=== PATIENT | male | born 1955 | race Caucasian/White ===

== ENCOUNTER 2019-12-23 09:40 | Outpatient (CLI) | payer MEDICARE, SELFPAY ==
[2019-12-23 09:50] LABS: Basophils Absolute Auto 0.04 K/mm3 (0.00-0.10); Basophils Percent Auto 0.5 % (0.0-1.0); Eosinophils Absolute Auto 0.13 K/mm3 (0.02-0.50); Eosinophils Percent Auto 1.7 % (1.0-6.0); Hematocrit 40.4 % (40.0-54.0); Hemoglobin 13.9 g/dL (14.0-18.0); Immature Granulocyte Absolute 0.02 K/mm3 (0.00-0.00); Immature Granulocyte Percent A 0.3 % (0.0-0.0); Lymphocytes Absolute Auto 1.77 K/mm3 (1.10-4.50); Lymphocytes Percent Auto 22.7 % (18.0-42.0); Mean Corpuscular HGB Conc 34.4 g/dL (32.0-36.0); Mean Corpuscular Hemoglobin 29.8 pg (27.0-31.0); Mean Corpuscular Volume 86.5 fL (78.0-102.0); Mean Platelet Volume 9.9 fl (8.7-11.0); Monocytes Percent Auto 6.4 % (2.0-11.0); Neutrophils Absolute Auto 5.3 K/mm3 (1.7-7.2); Neutrophils Percent Auto 68.4 % (50.0-70.0); Platelet Count Result 196 K/mm3 (150-420); Red Blood Count 4.67 M/mm3 (4.70-6.10); Red Cell Distribution Width 13.1 % (11.6-14.4); White Blood Count 7.8 K/mm3 (4.8-10.8)
[2019-12-23 10:02] LABS: Hemoglobin A1C 6.1 % (<5.7)
[2019-12-23 11:48] LABS: Anion Gap 14.2 mmol/L (7-16); Blood Urea Nitrogen 13 mg/dL (7-18); Calcium 8.9 mg/dL (8.5-10.1); Carbon Dioxide 30 mmol/L (21-32); Chloride 105 mmol/L (98-108); Estimated Glomerular Filt Rate > 60; Glucose 144 mg/dL (70-99); Osmolality Calculated 305 mOsm/kg (285-295); Potassium 3.2 mmol/L (3.5-5.1); Sodium 146 mmol/L (136-145)
== END 2019-12-23 09:41 | disposition home or self-care (01) ==
LOC: CHSLAB 09:42
PROVIDERS: PCP Family Medicine; Visit Provider Family Medicine
DX: E78.2 Mixed hyperlipidemia (principal); E11.9 Type 2 diabetes mellitus without complications; I10 Essential (primary) hypertension; Z12.5 Encounter for screening for malignant neoplasm of prostate
CPT/HCPCS: 36415; 80048; 83036; 84153; 85025; G0103

== ENCOUNTER 2020-03-26 07:59 | Outpatient (CLI) | payer MEDICARE, SELFPAY ==
[2020-03-26 08:48] LABS: Anion Gap 10.8 mmol/L (7-16); Blood Urea Nitrogen 19 mg/dL (7-18); Calcium 8.7 mg/dL (8.5-10.1); Carbon Dioxide 31 mmol/L (21-32); Chloride 106 mmol/L (98-108); Estimated Glomerular Filt Rate 60; Glucose 154 mg/dL (70-99); Osmolality Calculated 303 mOsm/kg (285-295); Potassium 3.8 mmol/L (3.5-5.1); Sodium 144 mmol/L (136-145)
== END 2020-03-26 08:00 | disposition home or self-care (01) ==
LOC: CHSLAB 08:00
PROVIDERS: PCP Family Medicine; Visit Provider Family Medicine
DX: E11.9 Type 2 diabetes mellitus without complications (principal); I10 Essential (primary) hypertension
CPT/HCPCS: 36415; 80048; 83036

== ENCOUNTER 2020-06-07 11:38 | Outpatient (CLI) | payer MEDICARE, SELFPAY ==
[2020-06-07 13:22] LABS: Anion Gap 11 mmol/L (8-16); Blood Urea Nitrogen 22 mg/dL (7-18); Carbon Dioxide 28 mmol/L (21-32); Chloride 107 mmol/L (98-108); Estimated Glomerular Filt Rate 45; Glucose 85 mg/dL (70-99); Osmolality Calculated 304 mOsm/kg (285-295); Potassium 3.6 mmol/L (3.5-5.1); Sodium 146 mmol/L (136-145)
== END 2020-06-07 11:39 | disposition home or self-care (01) ==
PROVIDERS: PCP Family Medicine
DX: R53.83 Other fatigue (principal); I10 Essential (primary) hypertension; G47.33 Obstructive sleep apnea (adult) (pediatric)
CPT/HCPCS: 36415; 80048

== ENCOUNTER 2020-07-09 08:54 | Outpatient (CLI) | payer MEDICARE, SELFPAY ==
[2020-07-09 09:06] LABS: Basophils Absolute Auto 0.03 K/mm3 (0.00-0.10); Basophils Percent Auto 0.4 % (0.0-1.0); Eosinophils Absolute Auto 0.16 K/mm3 (0.02-0.50); Eosinophils Percent Auto 2.2 % (1.0-6.0); Hematocrit 40.8 % (40.0-54.0); Hemoglobin 13.2 g/dL (14.0-18.0); Immature Granulocyte Absolute 0.02 K/mm3 (0.00-0.00); Immature Granulocyte Percent A 0.3 % (0.0-0.0); Lymphocytes Absolute Auto 1.75 K/mm3 (1.10-4.50); Lymphocytes Percent Auto 24.1 % (18.0-42.0); Mean Corpuscular HGB Conc 32.4 g/dL (32.0-36.0); Mean Corpuscular Hemoglobin 28.9 pg (27.0-31.0); Mean Corpuscular Volume 89.5 fL (78.0-102.0); Monocytes Absolute Auto 0.41 K/mm3 (0.10-0.90); Monocytes Percent Auto 5.7 % (2.0-11.0); Neutrophils Absolute Auto 4.9 K/mm3 (1.7-7.2); Neutrophils Percent Auto 67.3 % (50.0-70.0); Platelet Count Result 191 K/mm3 (150-420); Red Blood Count 4.56 M/mm3 (4.70-6.10); Red Cell Distribution Width 12.7 % (11.6-14.4); White Blood Count 7.3 K/mm3 (4.8-10.8)
[2020-07-09 09:18] LABS: Hemoglobin A1C 5.9 % (<5.7)
[2020-07-09 09:37] LABS: Alanine Aminotransferase 34 U/L (16-63); Albumin Level 3.7 g/dL (3.4-5.0); Alkaline Phosphatase 69 U/L (46-116); Anion Gap 9 mmol/L (8-16); Aspartate Amino Transferase 18 U/L (15-37); Bilirubin Direct 0.1 mg/dL (0-0.2); Bilirubin,Total 0.5 mg/dL (0.00-1.00); Blood Urea Nitrogen 16 mg/dL (7-18); Calcium 9.1 mg/dL (8.5-10.1); Carbon Dioxide 32 mmol/L (21-32); Chloride 106 mmol/L (98-108); Estimated Glomerular Filt Rate 56; Glucose 150 mg/dL (70-99); Osmolality Calculated 308 mOsm/kg (285-295); Potassium 4.7 mmol/L (3.5-5.1); Sodium 147 mmol/L (136-145); Total Protein 6.8 g/dL (6.4-8.2)
== END 2020-07-09 08:55 | disposition home or self-care (01) ==
PROVIDERS: PCP Family Medicine
DX: I11.9 Hypertensive heart disease without heart failure (principal); E11.9 Type 2 diabetes mellitus without complications; E78.2 Mixed hyperlipidemia
CPT/HCPCS: 36415; 80048; 80076; 83036; 85025

== ENCOUNTER 2020-10-12 09:03 | Outpatient (CLI) | payer MEDICARE, SELFPAY ==
[2020-10-12 09:17] LABS: Basophils Absolute Auto 0.02 K/mm3 (0.00-0.10); Basophils Percent Auto 0.3 % (0.0-1.0); Eosinophils Absolute Auto 0.12 K/mm3 (0.02-0.50); Eosinophils Percent Auto 1.7 % (1.0-6.0); Hematocrit 39.1 % (40.0-54.0); Immature Granulocyte Absolute 0.03 K/mm3 (0.00-0.00); Immature Granulocyte Percent A 0.4 % (0.0-0.0); Lymphocytes Absolute Auto 1.57 K/mm3 (1.10-4.50); Lymphocytes Percent Auto 21.8 % (18.0-42.0); Mean Corpuscular HGB Conc 33.2 g/dL (32.0-36.0); Mean Corpuscular Hemoglobin 29.1 pg (27.0-31.0); Mean Corpuscular Volume 87.7 fL (78.0-102.0); Mean Platelet Volume 9.9 fl (8.7-11.0); Monocytes Absolute Auto 0.53 K/mm3 (0.10-0.90); Monocytes Percent Auto 7.4 % (2.0-11.0); Neutrophils Absolute Auto 4.9 K/mm3 (1.7-7.2); Neutrophils Percent Auto 68.4 % (50.0-70.0); Platelet Count Result 186 K/mm3 (150-420); Red Blood Count 4.46 M/mm3 (4.70-6.10); White Blood Count 7.2 K/mm3 (4.8-10.8)
[2020-10-12 09:31] LABS: Hemoglobin A1C 6.1 % (<5.7)
[2020-10-12 10:22] LABS: Anion Gap 9 mmol/L (8-16); Blood Urea Nitrogen 14 mg/dL (7-18); Calcium 8.9 mg/dL (8.5-10.1); Carbon Dioxide 33 mmol/L (21-32); Chloride 102 mmol/L (98-108); Cholesterol 135 mg/dL (0-200); Creatine Kinase 105 U/L (39-308); Estimated Glomerular Filt Rate 59; Glucose 173 mg/dL (70-99); HDL Direct 65 mg/dL (40-60); LDL Cholesterol Calculated 46 mg/dL (<130); Osmolality Calculated 302 mOsm/kg (285-295); Potassium 3.4 mmol/L (3.5-5.1); Sodium 144 mmol/L (136-145); Triglycerides 122 mg/dL (0-150)
== END 2020-10-12 09:04 | disposition home or self-care (01) ==
LOC: CHSLAB 09:04
PROVIDERS: PCP Family Medicine; Visit Provider Family Medicine
DX: E78.2 Mixed hyperlipidemia (principal); I10 Essential (primary) hypertension; E11.9 Type 2 diabetes mellitus without complications
CPT/HCPCS: 36415; 80048; 80061; 82550; 83036; 85025

== ENCOUNTER 2021-01-10 08:43 | Outpatient (CLI) | payer MEDICARE, SELFPAY ==
[2021-01-10 09:06] LABS: Basophils Absolute Auto 0.03 K/mm3 (0.00-0.10); Basophils Percent Auto 0.4 % (0.0-1.0); Eosinophils Absolute Auto 0.18 K/mm3 (0.02-0.50); Eosinophils Percent Auto 2.7 % (1.0-6.0); Hematocrit 39.9 % (40.0-54.0); Hemoglobin 13.2 g/dL (14.0-18.0); Immature Granulocyte Absolute 0.03 K/mm3 (0.00-0.00); Immature Granulocyte Percent A 0.4 % (0.0-0.0); Lymphocytes Absolute Auto 1.56 K/mm3 (1.10-4.50); Mean Corpuscular HGB Conc 33.1 g/dL (32.0-36.0); Mean Corpuscular Hemoglobin 28.7 pg (27.0-31.0); Mean Corpuscular Volume 86.7 fL (78.0-102.0); Mean Platelet Volume 10.2 fl (8.7-11.0); Monocytes Percent Auto 5.9 % (2.0-11.0); Neutrophils Absolute Auto 4.6 K/mm3 (1.7-7.2); Neutrophils Percent Auto 67.6 % (50.0-70.0); Platelet Count Result 174 K/mm3 (150-420); White Blood Count 6.8 K/mm3 (4.8-10.8)
[2021-01-10 09:50] LABS: Hemoglobin A1C 6.7 % (<5.7)
[2021-01-10 10:40] LABS: Creatinine Urine 89.96 mg/dL (40-278); MALB Creatinine Ratio 104.3 mg/g (0-30); Microalbumin Urine Random 93.9 mg/L
[2021-01-10 10:53] LABS: Alanine Aminotransferase 35 U/L (16-63); Albumin Level 3.7 g/dL (3.4-5.0); Alkaline Phosphatase 61 U/L (46-116); Anion Gap 8 mmol/L (8-16); Aspartate Amino Transferase 18 U/L (15-37); Bilirubin,Total 0.8 mg/dL (0.00-1.00); Blood Urea Nitrogen 17 mg/dL (7-18); Carbon Dioxide 31 mmol/L (21-32); Chloride 102 mmol/L (98-108); Estimated Glomerular Filt Rate 58; Glucose 191 mg/dL (70-99); Osmolality Calculated 298 mOsm/kg (285-295); Potassium 3.3 mmol/L (3.5-5.1); Sodium 141 mmol/L (136-145); Total Protein 6.8 g/dL (6.4-8.2)
[2021-01-10 11:15] LABS: Calcium 8.6 mg/dL (8.5-10.1)
== END 2021-01-10 08:44 | disposition home or self-care (01) ==
LOC: CHSLAB 08:45
PROVIDERS: PCP Family Medicine; Visit Provider Family Medicine
DX: E11.9 Type 2 diabetes mellitus without complications (principal); E78.2 Mixed hyperlipidemia; Z12.5 Encounter for screening for malignant neoplasm of prostate; I10 Essential (primary) hypertension
CPT/HCPCS: 36415; 80053; 82043; 83036; 84153; 85025; G0103

== ENCOUNTER 2021-04-20 08:35 | Outpatient (CLI) | payer MEDICARE, SELFPAY ==
[2021-04-20 08:48] LABS: Basophils Absolute Auto 0.04 K/mm3 (0.00-0.10); Basophils Percent Auto 0.6 % (0.0-1.0); Eosinophils Absolute Auto 0.14 K/mm3 (0.02-0.50); Hematocrit 41.5 % (40.0-54.0); Hemoglobin 13.9 g/dL (14.0-18.0); Immature Granulocyte Absolute 0.02 K/mm3 (0.00-0.00); Immature Granulocyte Percent A 0.3 % (0.0-0.0); Lymphocytes Absolute Auto 1.59 K/mm3 (1.10-4.50); Lymphocytes Percent Auto 22.5 % (18.0-42.0); Mean Corpuscular HGB Conc 33.5 g/dL (32.0-36.0); Mean Corpuscular Volume 86.6 fL (78.0-102.0); Monocytes Percent Auto 5.7 % (2.0-11.0); Neutrophils Absolute Auto 4.9 K/mm3 (1.7-7.2); Neutrophils Percent Auto 68.9 % (50.0-70.0); Platelet Count Result 191 K/mm3 (150-420); Red Blood Count 4.79 M/mm3 (4.70-6.10); Red Cell Distribution Width 12.7 % (11.6-14.4); White Blood Count 7.1 K/mm3 (4.8-10.8)
[2021-04-20 09:16] LABS: Hemoglobin A1C 6.7 % (<5.7)
[2021-04-20 09:29] LABS: Anion Gap 11 mmol/L (8-16); Blood Urea Nitrogen 15 mg/dL (7-18); Carbon Dioxide 28 mmol/L (21-32); Chloride 105 mmol/L (98-108); Estimated Glomerular Filt Rate 60; Glucose 149 mg/dL (70-99); Osmolality Calculated 301 mOsm/kg (285-295); Potassium 3.8 mmol/L (3.5-5.1); Sodium 144 mmol/L (136-145)
== END 2021-04-20 08:36 | disposition home or self-care (01) ==
LOC: CHSLAB 08:37
PROVIDERS: PCP Family Medicine; Visit Provider Family Medicine
DX: E11.9 Type 2 diabetes mellitus without complications (principal)
CPT/HCPCS: 36415; 80048; 83036; 85025

== ENCOUNTER → 2021-07-16 20:24 | Outpatient (CLI) | payer MEDICARE, OTHER, MEDICAID, SELFPAY ==
--- NOTE | 2021-08-10 10:43 | P.SLEEP_ITS ---
Sleep Study Date of Study: 07/16/21 Ordering Provider: Parker Wilder MD Interpreting Physician: Elizabet Davis MD Sleep Study Type: Split Polysomnogram Height: 1.78 m Weight: 113.398 kg Body Mass Index: 35.9 Neck Circumference (inches): 17.5 [place]: 3 [facility] Past Medical History Medical History (Updated 08/10/21 @ 20:42 by Elizabet Davis MD) Depression Diabetes mellitus Hypertension initial test 2014, declined CPAP Mixed hyperlipidemia Obstructive sleep apnea (~07/2021) Orthostatic hypotension Testicular cancer Surgical History Surgical History (Updated 08/10/21 @ 20:40 by Elizabet Davis MD) History of inguinal hernia repair Status post orchiectomy 1978 Family History Family History (Updated 06/24/18 @ 11:48 by DOCTOR UNKNOWN) Father Diabetes mellitus Social History Social History Smoking status: Never smoker Alcohol intake: never
--- NOTE | 2021-08-10 10:55 | WPDSLEEPSTUD ---
Sleep Study Date of Study: 07/16/21 Ordering Provider: Parker Wilder MD Interpreting Physician: Elizabet Davis MD Sleep Study Type: Split Polysomnogram Height: 1.78 m Weight: 113.398 kg Body Mass Index: 35.9 Neck Circumference (inches): 17.5 [place]: 3 Reason for Sleep Study He has a history of obstructive sleep apnea 2014, had a CPAP titration without optimal pressure, did not have a repeat titration * 09/28/2014; CPAP titration with pressures 5 cm to 8 cm attempted; AHI was 11.8 at the final pressure BMI was 38.3 at the time. Sleep History Houston Miller is a 66 year old man with obstructive sleep apnea syndrome diagnosed in 2014. He had a CPAP titration in September of 2014 with a final pressure of 8 cm however was not optimal as his AHI was still elevated at 11.8. Was recommended that he return for a 2nd CPAP titration. He was not able to tolerate it so he never returned. His body mass index is lower now, previously was 38.3 and now it is 35.9. He reports losing 10 lb over the last year. The patient reports difficulty falling asleep and he wakes often during the night. He does not awaken from sleep feeling short of breath, does not awaken with heartburn, belching or coughing, and he denies snoring. He rarely has trouble sleeping with a cold. He does not gasp for breath at night, does not sweat excessively at night and does not notice his heart beating her pounding at night. He occasionally falls asleep during the day, never involuntarily and never while driving. He does not have loss of muscle tone with strong emotion. He does not have daytime difficulties due to excessive sleepiness. He denies feeling paralyzed on waking or falling asleep and denies vivid dreamlike scenes upon awakening or falling asleep. He does not feel afraid to go to sleep. He denies having nightmares however he also does not have any dream recall. He does not have racing thoughts. He constantly feels sad, depressed and anxious. He does not have muscular tension, does not notice parts of his body jerking and he does not kick at night. He does not have crawling and aching feelings in his legs. He denies any kind of leg pain at night. He does not have morning jaw pain. He does not grind his teeth at night, he is not bothered by pain during the day or awakened by pain at night. He does not wake up feeling stiff in the morning with sore achy muscles or pain in the neck and spine. He has fatigue, memory problems, insomnia and concentration difficulties. Normal bedtime is 8:00 p.m. falling asleep within 5 minutes, waking 4 times at night to urinate. He is able to return to sleep within 3 minutes. He wakes the morning at 6:00 a.m. and rarely feels refreshed. He estimates getting 10 hours of sleep at night. He denies taking naps in the day. A short nap is not refreshing. He is drowsy in the morning for 3 hours or longer. He feels better in the morning compared to other times of day. Habits: Never used tobacco. He denies caffeine, alcohol and recreational drugs. FOR[facility]LY [facility] Past Medical History Medical History (Updated 08/10/21 @ 20:42 by Elizabet Davis MD) Depression Diabetes mellitus Hypertension initial test 2014, declined CPAP Mixed hyperlipidemia Obstructive sleep apnea (~07/2021) Orthostatic hypotension Testicular cancer Surgical History Surgical History (Updated 08/10/21 @ 20:40 by Elizabet Davis MD) History of inguinal hernia repair Status post orchiectomy 1978 Family History Family History (Updated 06/24/18 @ 11:48 by DOCTOR UNKNOWN) Father Diabetes mellitus Social History Social History Smoking status: Never smoker Alcohol intake: never Medications Medications: amlodipine besylate 5 mg daily fluoxetine hydrochloride 20 mg 3 tablets daily metformin 500 mg 2 tablets twice a day risperidone 1 mg daily bupropion 300 mg daily potassium supplement 10 mEq 2 tablets in the morning and 1 at night at
[2021-08-10 20:58] VITALS: BMI 35.9
== END ==
PROVIDERS: PCP Family Medicine; Visit Provider Family Medicine
DX: G47.33 Obstructive sleep apnea (adult) (pediatric) (principal)
CPT/HCPCS: 95811

== ENCOUNTER 2021-07-21 08:33 | Outpatient (CLI) | payer MEDICARE, SELFPAY ==
[2021-07-21 08:44] LABS: Basophils Absolute Auto 0.06 K/mm3 (0.00-0.10); Basophils Percent Auto 0.8 % (0.0-1.0); Hematocrit 44.1 % (40.0-54.0); Hemoglobin 14.3 g/dL (14.0-18.0); Immature Granulocyte Absolute 0.03 K/mm3 (0.00-0.00); Immature Granulocyte Percent A 0.4 % (0.0-0.0); Lymphocytes Absolute Auto 1.95 K/mm3 (1.10-4.50); Lymphocytes Percent Auto 24.5 % (18.0-42.0); Mean Corpuscular HGB Conc 32.4 g/dL (32.0-36.0); Mean Corpuscular Hemoglobin 28.7 pg (27.0-31.0); Mean Corpuscular Volume 88.6 fL (78.0-102.0); Monocytes Absolute Auto 0.53 K/mm3 (0.10-0.90); Monocytes Percent Auto 6.7 % (2.0-11.0); Neutrophils Percent Auto 62.6 % (50.0-70.0); Platelet Count Result 231 K/mm3 (150-420); Red Blood Count 4.98 M/mm3 (4.70-6.10); Red Cell Distribution Width 12.9 % (11.6-14.4)
[2021-07-21 09:17] LABS: Hemoglobin A1C 6.1 % (<5.7)
[2021-07-21 09:23] LABS: Alanine Aminotransferase 38 U/L (16-63); Albumin Level 3.9 g/dL (3.4-5.0); Alkaline Phosphatase 72 U/L (46-116); Anion Gap 12 mmol/L (8-16); Aspartate Amino Transferase 16 U/L (15-37); Bilirubin,Total 0.8 mg/dL (0.00-1.00); Blood Urea Nitrogen 19 mg/dL (7-18); Calcium 9.4 mg/dL (8.5-10.1); Carbon Dioxide 31 mmol/L (21-32); Chloride 103 mmol/L (98-108); Creatine Kinase 112 U/L (39-308); Estimated Glomerular Filt Rate 51; Glucose 160 mg/dL (70-99); Osmolality Calculated 307 mOsm/kg (285-295); Potassium 3.5 mmol/L (3.5-5.1); Sodium 146 mmol/L (136-145); Total Protein 7.3 g/dL (6.4-8.2)
== END 2021-07-21 08:34 | disposition home or self-care (01) ==
LOC: CHSLAB 08:35
PROVIDERS: PCP Family Medicine; Visit Provider Family Medicine
DX: E78.2 Mixed hyperlipidemia (principal); I10 Essential (primary) hypertension; E11.9 Type 2 diabetes mellitus without complications
CPT/HCPCS: 36415; 80053; 82550; 83036; 85025

== ENCOUNTER 2021-10-31 08:13 | Outpatient (CLI) | payer MEDICARE, SELFPAY ==
[2021-10-31 08:56] LABS: Basophils Absolute Auto 0.02 K/mm3 (0.00-0.10); Basophils Percent Auto 0.3 % (0.0-1.0); Eosinophils Absolute Auto 0.15 K/mm3 (0.02-0.50); Hematocrit 42.6 % (40.0-54.0); Hemoglobin 14.2 g/dL (14.0-18.0); Immature Granulocyte Absolute 0.02 K/mm3 (0.00-0.00); Immature Granulocyte Percent A 0.3 % (0.0-0.0); Lymphocytes Absolute Auto 1.54 K/mm3 (1.10-4.50); Lymphocytes Percent Auto 20.4 % (18.0-42.0); Mean Corpuscular HGB Conc 33.3 g/dL (32.0-36.0); Mean Corpuscular Hemoglobin 28.9 pg (27.0-31.0); Mean Corpuscular Volume 86.8 fL (78.0-102.0); Mean Platelet Volume 10.4 fl (8.7-11.0); Monocytes Absolute Auto 0.39 K/mm3 (0.10-0.90); Monocytes Percent Auto 5.2 % (2.0-11.0); Neutrophils Absolute Auto 5.4 K/mm3 (1.7-7.2); Neutrophils Percent Auto 71.8 % (50.0-70.0); Platelet Count Result 218 K/mm3 (150-420); Red Blood Count 4.91 M/mm3 (4.70-6.10); Red Cell Distribution Width 12.9 % (11.6-14.4); White Blood Count 7.5 K/mm3 (4.8-10.8)
[2021-10-31 10:14] LABS: Anion Gap 11 mmol/L (8-16); Blood Urea Nitrogen 16 mg/dL (7-18); Calcium 8.8 mg/dL (8.5-10.1); Carbon Dioxide 28 mmol/L (21-32); Chloride 102 mmol/L (98-108); Cholesterol 135 mg/dL (0-200); Estimated Glomerular Filt Rate 51; Glucose 212 mg/dL (70-99); HDL Direct 53 mg/dL (40-60); LDL Cholesterol Calculated 55 mg/dL (<130); Osmolality Calculated 299 mOsm/kg (285-295); Potassium 3.6 mmol/L (3.5-5.1); Sodium 141 mmol/L (136-145); Triglycerides 136 mg/dL (0-150)
[2021-10-31 10:20] LABS: Hemoglobin A1C 8.1 % (<5.7)
== END 2021-10-31 08:14 | disposition home or self-care (01) ==
LOC: CHSLAB 08:15
PROVIDERS: PCP Family Medicine; Visit Provider Family Medicine
DX: E11.9 Type 2 diabetes mellitus without complications (principal); E78.2 Mixed hyperlipidemia
CPT/HCPCS: 36415; 80048; 80061; 83036; 85025

== ENCOUNTER 2022-02-03 08:23 | Outpatient (CLI) | payer MEDICARE, SELFPAY ==
[2022-02-03 08:36] LABS: Basophils Absolute Auto 0.04 K/mm3 (0.00-0.10); Basophils Percent Auto 0.6 % (0.0-1.0); Eosinophils Absolute Auto 0.13 K/mm3 (0.02-0.50); Eosinophils Percent Auto 1.9 % (1.0-6.0); Hemoglobin 14.3 g/dL (14.0-18.0); Immature Granulocyte Absolute 0.01 K/mm3 (0.00-0.00); Immature Granulocyte Percent A 0.1 % (0.0-0.0); Lymphocytes Absolute Auto 1.53 K/mm3 (1.10-4.50); Lymphocytes Percent Auto 22.3 % (18.0-42.0); Mean Corpuscular HGB Conc 32.5 g/dL (32.0-36.0); Mean Corpuscular Hemoglobin 29.1 pg (27.0-31.0); Mean Corpuscular Volume 89.6 fL (78.0-102.0); Mean Platelet Volume 10.8 fl (8.7-11.0); Monocytes Absolute Auto 0.45 K/mm3 (0.10-0.90); Monocytes Percent Auto 6.6 % (2.0-11.0); Neutrophils Absolute Auto 4.7 K/mm3 (1.7-7.2); Neutrophils Percent Auto 68.5 % (50.0-70.0); Platelet Count Result 175 K/mm3 (150-420); Red Blood Count 4.91 M/mm3 (4.70-6.10); Red Cell Distribution Width 13.2 % (11.6-14.4); White Blood Count 6.9 K/mm3 (4.8-10.8)
[2022-02-03 09:14] LABS: Hemoglobin A1C 6.3 % (<5.7)
[2022-02-03 09:38] LABS: Anion Gap 11 mmol/L (8-16); Blood Urea Nitrogen 13 mg/dL (7-18); Calcium 9.1 mg/dL (8.5-10.1); Carbon Dioxide 25 mmol/L (21-32); Chloride 103 mmol/L (98-108); Estimated Glomerular Filt Rate > 60; Glucose 130 mg/dL (70-99); Osmolality Calculated 290 mOsm/kg (285-295); Potassium 3.7 mmol/L (3.5-5.1); Sodium 139 mmol/L (136-145)
== END 2022-02-03 08:24 | disposition home or self-care (01) ==
LOC: CHSLAB 08:25
PROVIDERS: PCP Family Medicine; Visit Provider Family Medicine
DX: E11.9 Type 2 diabetes mellitus without complications (principal)
CPT/HCPCS: 36415; 80048; 83036; 85025

== ENCOUNTER 2022-05-02 10:46 | Outpatient (CLI) | payer MEDICARE, OTHER, SELFPAY ==
--- NOTE | ~2022-05-02 | XR_ITS ---
EXAMINATION: XR lumbar spine 2-3V DATE: 05/02/2022 11:08 INDICATION: Low back pain TECHNIQUE: Anteroposterior and lateral views of the lumbar spine, and cone-down lateral view of the l umbosacral junction were obtained. COMPARISON: 02/19/2017 FINDINGS: There are bilateral L5 pars defects with chronic grade 2 anterolisthesis of L5 on S1. No fr acture is identified. There is advanced loss of intervertebral disc space height at L5-S1. There is m oderate loss of intervertebral disc space height at L1-2. The vertebral body heights are maintained. IMPRESSION: 1. Severe lumbar spondylosis without acute findings or significant interval change. Reviewed, dictated and finalized at location B. IMPRESSION: 1. Severe lumbar spondylosis without acute findings or significant interval nini nge.
== END 2022-05-02 10:47 | disposition home or self-care (01) ==
LOC: CHSIMG 10:50
PROVIDERS: PCP Family Medicine; Visit Provider Family Medicine
DX: M54.50 Low back pain, unspecified (principal); M47.816 Spondylosis without myelopathy or radiculopathy, lumbar region
CPT/HCPCS: 72100

== ENCOUNTER 2022-05-08 14:53 | Outpatient (RCR) | payer MEDICARE, OTHER, SELFPAY ==
--- NOTE | 2022-05-08 16:28 | PTOPEVAL1 ---
Evaluation Information Assessment Status Evaluation Diagnosis low back pain Subjective Information Pt. reports that he recently fell resulting in back pain. He reports that he fell while walking up steps. He recalls just losing his balance. He states that the pain is located across the low back and can occassionally radiate into the buttock and thigh. He reports that pain is worsened with walking. He reports that he can only walk about 1 1/2 blocks before sitting. He reports that he sits at the computer most of the day since injuring his back. He reports no increase in pain sitting at his computer. He reports that his goal for therapy is to decrease his low back pain. Reported Pain Level Pain Score 3: Self Report Assessment PT Clinical Summary Pt. is a 67 year old male who enters the clinic with developed low back pain. He presents with impaired l.e. strength, impaired balance, imapired postural awareness and pain on this date. Continued treatment is indicated in order to improve these areas to allow for improved comfort with IADL performance. Plan of Care Interventions Electrical Stimulation,Gait Training,Hot Pack/Cold Pack,Manual Therapy,Neuro Re-education, Therapeutic Activities,Therapeutic Exercise PT Services Indicated Yes Treatment Frequency and 3x/week x 12 visits Duration These treatments will address the objective and functional deficits as defined above. The patient will be advanced safely and appropriately in order for the patient to progress towards his/her prior level of function. Additional exercises will be introduced and as well as a comprehensive home exercise program upon discharge, if needed, ?to ensure carryover of functional gains achieved in the clinic. This treatment plan has been reviewed and agreement upon by the patient.
--- NOTE | 2022-06-02 09:09 | PTOPDC ---
Assessment and note entered by JT File, PT Evaluation Information Assessment Status Discharge Diagnosis low back pain Subjective Information patient reports he feels good this date. he reports he is ready for DC from therapy today. he report she plans to begin working out in a gym after today. Reported Pain Level Pain Score 0: Self Report Assessment PT Clinical Summary mr. al presents to skilled PT services for his 12th skilled therapy visit. as of this date, he presents with improved rom, strength, balance, and has no pain. he continues to displayd tightness in his hamstrings, but has met all other goals for skilled PT. he will DC skilled PT this date and continue with HEP independent at home. Plan of Care Treatment Frequency and DC to independent HEP Duration
== END 2022-06-02 11:15 | disposition home or self-care (01) ==
LOC: CHSPT 14:53
PROVIDERS: PCP Family Medicine; Visit Provider Family Medicine
DX: M54.9 Dorsalgia, unspecified (principal)
CPT/HCPCS: 97014; 97110; 97112; 97161; 97530; G0283

== ENCOUNTER 2022-05-09 08:30 | Outpatient (CLI) | payer MEDICARE, SELFPAY ==
[2022-05-09 08:42] LABS: Basophils Absolute Auto 0.02 K/mm3 (0.00-0.10); Basophils Percent Auto 0.3 % (0.0-1.0); Eosinophils Absolute Auto 0.13 K/mm3 (0.02-0.50); Eosinophils Percent Auto 2.1 % (1.0-6.0); Hemoglobin 13.4 g/dL (12.4-15.3); Immature Granulocyte Absolute 0.02 K/mm3 (0.00-0.00); Immature Granulocyte Percent A 0.3 % (0.0-0.0); Lymphocytes Absolute Auto 1.51 K/mm3 (1.10-4.50); Lymphocytes Percent Auto 24.1 % (18.0-42.0); Mean Corpuscular HGB Conc 32.7 g/dL (32.0-36.0); Mean Corpuscular Hemoglobin 29.6 pg (27.0-31.0); Mean Corpuscular Volume 90.7 fL (78.0-102.0); Mean Platelet Volume 11.1 fl (8.7-11.0); Monocytes Absolute Auto 0.33 K/mm3 (0.10-0.90); Monocytes Percent Auto 5.3 % (2.0-11.0); Neutrophils Absolute Auto 4.3 K/mm3 (1.7-7.2); Neutrophils Percent Auto 67.9 % (50.0-70.0); Platelet Count Result 169 K/mm3 (150-420); Red Blood Count 4.52 M/mm3 (4.70-6.10); Red Cell Distribution Width 13.5 % (11.6-14.4); White Blood Count 6.3 K/mm3 (4.8-10.8)
[2022-05-09 08:54] LABS: Hemoglobin A1C 6.1 % (<5.7)
[2022-05-09 09:11] LABS: Alanine Aminotransferase 22 U/L (16-63); Albumin Level 3.9 g/dL (3.4-5.0); Alkaline Phosphatase 55 U/L (46-116); Anion Gap 10 mmol/L (8-16); Aspartate Amino Transferase 16 U/L (15-37); Bilirubin,Total 0.7 mg/dL (0.00-1.00); Blood Urea Nitrogen 24 mg/dL (7-18); Calcium 8.9 mg/dL (8.5-10.1); Carbon Dioxide 24 mmol/L (21-32); Chloride 106 mmol/L (98-108); Estimated Glomerular Filt Rate 56; Glucose 124 mg/dL (70-99); Osmolality Calculated 295 mOsm/kg (285-295); Potassium 3.5 mmol/L (3.5-5.1); Prostate Specific Antigen 1.1 ng/mL (< OR = 4.0); Sodium 140 mmol/L (136-145); Total Protein 7.3 g/dL (6.4-8.2)
[2022-05-09 09:12] LABS: CRP < 0.2 mg/dL (0.0-0.9)
[2022-05-09 09:45] LABS: Erythrocyte Sedimentation Rate 20 mm/hr (0-20)
[2022-05-09 11:23] LABS: Creatinine Urine 135.04 mg/dL (40-278); MALB Creatinine Ratio 28.2 mg/g (0-30); Microalbumin Urine Random 38.1 mg/L
== END 2022-05-09 08:31 | disposition home or self-care (01) ==
LOC: CHSLAB 08:32
PROVIDERS: PCP Family Medicine; Visit Provider Family Medicine
DX: R53.83 Other fatigue (principal); E11.9 Type 2 diabetes mellitus without complications; Z12.5 Encounter for screening for malignant neoplasm of prostate
CPT/HCPCS: 36415; 80053; 82043; 83036; 84153; 84443; 85025; 85652; 86140; G0103

== ENCOUNTER 2022-06-19 16:06 | Outpatient (CLI) | payer MEDICARE, OTHER, SELFPAY ==
--- NOTE | 2022-06-19 16:35 | ECG_ITS ---
Measurements Intervals [place] Rate: 79 P: 39 [place]: 181 QRS: -19 QRSD: 98 T: 16 QT: 390 QTc: 448 Interpretive Statements SINUS RHYTHM NO PREVIOUS ECG AVAILABLE FOR COMPARISON Electronically Signed On 06-21-2022 19:38:30 CDT by Dian Leigh M.D.
== END 2022-06-19 16:07 | disposition home or self-care (01) ==
PROVIDERS: PCP Family Medicine; Visit Provider Internal Medicine Cardiovascular Disease
DX: R55 Syncope and collapse (principal)
CPT/HCPCS: 93005

== ENCOUNTER 2022-07-03 13:20 | Outpatient (CLI) | payer MEDICARE, OTHER, SELFPAY ==
--- NOTE | 2022-07-03 13:25 | ECHO_ITS ---
Patient Info Name: Houston Miller Age: 67 years : 1955 Gender: Male Ht: 70 in Wt: 244 lbs BSA: 2.38 m2 HR: 85 bpm BP: 125 / 85 mmHg Heart Rhythm: Sinus Rhythm Technical Quality: Fair Exam Date: 07/03/2022 1:48 PM Exam Location: [facility] Patient Status: Outpatient Admit Date: 07/03/2022 Staff Ordering Physician: Henry Santiago DO Script Supervisor: Usha Lunsford RDCS Attending Provider: Henry Santiago DO Referring Physician: Jack CRABTREE; Exam Type: CA echo doppler color flow Study Info Indications R55 - Syncope and collapse Complete two-dimensional, color flow and Doppler transthoracic echocardiogram is performed. Summary 1. Complete two-dimensional, color flow and Doppler transthoracic echocardiogram is performed. 2. Left ventricular chamber dimension is normal. 3. Left ventricular systolic function is normal, estimated at 60-65%. 4. The left ventricular diastolic function is grade I diastolic dysfunction. 5. E/e' 12 is mildly elevated. 6. There is trace mitral valve regurgitation. 7. No pulmonary hypertension, estimated pulmonary arterial systolic pressure is 24 mmHg. Left Ventricle E/e' 12 is mildly elevated. Left ventricular chamber dimension is normal. Left ventricular systolic function is normal, estimated at 60-65%. The left ventricular diastolic function is grade I diastolic dysfunction. Right Ventricle Right ventricular systolic function is normal and with normal TAPSE 2.0 cm. Right ventricular chamber dimension is normal. Left Atria Left atrial chamber dimension is normal. Right Atria Right atrial chamber dimension is normal. Aortic Valve The aortic valve is trileaflet. There is no aortic valve stenosis. There is no aortic valve regurgitation. Pulmonic Valve There is no pulmonic regurgitation. Mitral Valve There is no mitral valve stenosis. There is trace mitral valve regurgitation. Tricuspid Valve There is no tricuspid valve regurgitation. No pulmonary hypertension, estimated pulmonary arterial systolic pressure is 24 mmHg. Pericardium/Pleural There is no pericardial effusion. Inferior Vena Cava Normal inferior vena cava with >50% collapse upon inspiration consistent with normal right atrial pressure, 5 mmHg. Aorta The aortic root size at the sinus of Valsalva is normal. Left Ventricular Outflow Tract Name Value Normal LVOT 2D LVOT Diameter 2.1 cm LVOT Doppler LVOT Peak Velocity 78 cm/s LVOT Peak Gradient 2 mmHg LVOT Mean Gradient 1 mmHg LVOT VTI 16 cm LVOT VTI/AV VTI Ratio 0.6 LVOT Stroke Volume 56 ml Pulmonic Valve Name Value Normal RVOT Doppler RVOT Peak Gradient 2 mmHg PV Doppler
== END 2022-07-03 13:21 | disposition home or self-care (01) ==
LOC: CHSIMG 13:21
PROVIDERS: PCP Family Medicine; Visit Provider Internal Medicine Cardiovascular Disease
DX: R55 Syncope and collapse (principal)
CPT/HCPCS: 93306

== ENCOUNTER 2022-08-08 13:22 | Emergency (ER) | payer MEDICARE, OTHER, SELFPAY ==
[2022-08-08] VITALS (9 sets, daily range): BP systolic 115–172; BP diastolic 80–95; PULSE 85–107; RESP 16; TEMP 36.5–36.7; O2SAT 91–97
--- NOTE | ~2022-08-08 | CT_ITS ---
EXAMINATION: CT brain wo con DATE: 08/08/2022 14:59 INDICATION: head injury, multiple syncopal episodes, hypotension . TECHNIQUE: Computed tomography (CT) of the head was performed without intravenous contrast. The mA wa s adjusted according to patient size. Iterative reconstruction technique was employed. The dose-lengt h product was 605.33 mGy-cm. COMPARISON: 05/18/19. FINDINGS: No acute intracranial hemorrhage or extra-axial fluid collection. No hydrocephalus, mass, or herniation. No acute ischemic infarct. Unremarkable dural venous sinus attenuation. No acute osseous abnormality. The aerated spaces are clear. Mild atrophy and chronic white matter change. Atherosclerotic intracranial calcification. Bilateral l ens replacements. IMPRESSION: No acute intracranial process. Reviewed, dictated and finalized at location K. PASSER
--- NOTE | ~2022-08-08 | XR_ITS ---
EXAMINATION: XR chest 1V portable 08/08/2022 15:00 INDICATION: Syncope. Hypotension. Shortness of breath. PROCEDURE: AP view of the chest COMPARISON: Comparison to multiple prior studies sequentially, with oldest reviewed study dated 01/2007. FINDINGS: The lungs are clear. The cardiomediastinal silhouette is within normal limits. There are no pleural effusions. There is no pneumothorax suspected. 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 Shallow inspiration with crowding of the pulmonary vessels. IMPRESSION: 1: NO ACUTE CARDIOPULMONARY DISEASE. Reviewed, dictated and finalized at location A. ITE INSPECTOR
--- NOTE | 2022-08-08 13:56 | ED.SYNCOPE ---
HPI - Syncope General Chief Complaint: Syncope Stated Complaint: AMBULANCE Time Seen by Provider: 08/08/22 13:42 Source: patient Mode of arrival: ambulatory History of Present Illness HPI narrative: 67-year-old with a history of hypertension, diabetes mellitus, dyslipidemia, testicular cancer status post surgery, MARLO on CPAP, orthostatic hypotension presents to the ER with -- multiple orthostatic syncopal spells. He had 5 such episodes. During 1 such episode he fell down and hit his forehead and sustained a left supraorbital hematoma measuring 2 cm. The syncopal spell where witnessed by his family and by EMS. The patient would briefly pass out and spontaneously regained consciousness. No urinary incontinence. No seizure activity noted. Patient has had a long history of postural hypotension and has had an unremarkable Holter monitor, EEG and neuro assessment. He had an echo which revealed grade 1 diastolic dysfunction with a normal ejection fraction. The patient has not had any recent nausea / vomiting / diarrhea. Blood sugar was noted to be 107. MD complaint: loss of consciousness, felt faint and almost passed out Onset (ago): day(s) ( He has had 5 such episodes today.) Prodromal symptoms: vision changes and lightheaded Witnessed: Yes - by EMS Context: standing up Injuries sustained associated with event: face Current symptoms: none History: previous syncopal episode Related Data Home Medications Medication Instructions Recorded Confirmed amlodipine 5 mg tablet 5 mg PO DAILY 06/19/22 06/19/22 atorvastatin 20 mg tablet 20 mg PO DAILY 06/19/22 06/19/22 bupropion HCl 300 mg 24 hr tablet, 300 mg PO QAM 06/19/22 06/19/22 extended release pioglitazone 30 mg tablet 30 mg PO DAILY 06/19/22 06/19/22 potassium chloride 10 mEq 10 meq PO BID 06/19/22 06/19/22 tablet,extended release tamsulosin 0.4 mg capsule 0.4 mg PO DAILY 06/19/22 06/19/22 venlafaxine 150 mg 150 mg PO DAILY 06/19/22 06/19/22 capsule,extended release 24 hr Allergies Allergy/AdvReac Type Severity Reaction Status Date / Time No Known Allergies Allergy Verified 08/08/22 13:36 Review of Systems Review of Systems: All systems reviewed & are unremarkable except as noted in HPI and below Constitutional: Constitutional: Reports as per HPI and Reports no additional constitutional complaints Eyes: Eyes: Reports as per HPI and Reports no additional eye complaints ENT: Reports system reviewed and no additional complaints, except as documented and Reports as per HPI Cardiovascular: Cardiovascular: Reports as per HPI and Reports no additional cardiovascular complaints Respiratory: Respiratory: Reports as per HPI and Reports no additional respiratory complaints Gastrointestinal: Gastrointestinal: Reports as per HPI and Reports no additional gastrointestinal complaints Genitourinary: Genitourinary: Reports no additional male genitourinary complaints and Reports as per HPI Musculoskeletal: Musculoskeletal: Reports no additional musculoskeletal complaints and Reports as per HPI Integumentary/Breasts: Skin/Breast: Reports system reviewed and no additional complaints, except as docu and Reports as per HPI Comments: Left forehead hematoma lower lip bruising which is old Neurologic: Reports system reviewed and no additional complaints, except as documented and Reports as per HPI Psychiatric: Psychiatric: Reports no additional psychiatric complaints and Reports as per HPI Endocrine: Endocrine: Reports no additional endocrine complaints and Reports as per HPI Hematologic/Lymphatic: Hematologic/Lymphatic: Reports no additional hematologic/lymphatic complaints and Reports as per HPI Allergic/Immunologic: Allergic/Immunologic: Reports no additional allergic/immunologic complaints and Reports as per HPI [facility] Past Medical History Medical History Depression Diabetes mellitus Hypertension initial te
--- NOTE | 2022-08-08 14:13 | ECG_ITS ---
Measurements Intervals [place] Rate: 99 P: 22 [place]: 183 QRS: -18 QRSD: 98 T: 31 QT: 349 QTc: 449 Interpretive Statements SINUS RHYTHM DELAYED PRECORDIAL R/S TRANSITION BORDERLINE ST-T WAVE ABNORMALITY- HIGH LATERAL LEADS BASELINE ARTIFACT- II, III, AVF BORDERLINE ECG COMPARED TO ECG 06/19/2022 16:35:16 NO SIGNIFICANT CHANGES Electronically Signed On 08-08-2022 23:03:22 [employer] by Henry Santiago D.O.
[2022-08-08] MEDS: SODIUM CHLORIDE 0.9% IV 500 ML 999 ML IV CONT (14:22)
[2022-08-08 14:34] LABS: Basophils Absolute Auto 0.02 K/mm3 (0.00-0.10); Basophils Percent Auto 0.2 % (0.0-1.0); Eosinophils Absolute Auto 0.03 K/mm3 (0.02-0.50); Eosinophils Percent Auto 0.3 % (1.0-6.0); Hematocrit 39.8 % (37.0-46.0); Immature Granulocyte Absolute 0.03 K/mm3 (0.00-0.00); Immature Granulocyte Percent A 0.3 % (0.0-0.0); Lymphocytes Absolute Auto 0.64 K/mm3 (1.10-4.50); Lymphocytes Percent Auto 5.8 % (18.0-42.0); Mean Corpuscular HGB Conc 32.7 g/dL (32.0-36.0); Mean Corpuscular Hemoglobin 29.7 pg (27.0-31.0); Mean Corpuscular Volume 91.1 fL (78.0-102.0); Mean Platelet Volume 10.3 fl (8.7-11.0); Monocytes Absolute Auto 0.34 K/mm3 (0.10-0.90); Monocytes Percent Auto 3.1 % (2.0-11.0); Neutrophils Percent Auto 90.3 % (50.0-70.0); Platelet Count Result 182 K/mm3 (150-420); Red Blood Count 4.37 M/mm3 (4.70-6.10); Red Cell Distribution Width 13.4 % (11.6-14.4); White Blood Count 11.1 K/mm3 (4.8-10.8)
[2022-08-08 14:45] LABS: Prothrombin Time 11.4 Seconds (9.50-12.10)
[2022-08-08 14:49] LABS: Lactic Acid Reflex 4.3 mmol/L (0.4-2.0)
[2022-08-08 14:56] LABS: Alanine Aminotransferase 24 U/L (16-63); Albumin Level 3.9 g/dL (3.4-5.0); Alkaline Phosphatase 63 U/L (46-116); Anion Gap 12 mmol/L (8-16); Aspartate Amino Transferase 16 U/L (15-37); Bilirubin,Total 0.7 mg/dL (0.00-1.00); Blood Urea Nitrogen 25 mg/dL (7-18); Calcium 9.2 mg/dL (8.5-10.1); Carbon Dioxide 26 mmol/L (21-32); Chloride 107 mmol/L (98-108); Estimated CRCL calculation 43 ml/min; Estimated Glomerular Filt Rate 35; Glucose 122 mg/dL (70-99); NT Pro B Type Natriuretic Pept 268 pg/mL (0-125); Osmolality Calculated 305 mOsm/kg (285-295); Potassium 4.4 mmol/L (3.5-5.1); Sodium 145 mmol/L (136-145); Total Protein 7.3 g/dL (6.4-8.2); Troponin I 12.5 ng/L (0.00-60.4)
[2022-08-08] MEDS: LACTATED RINGERS 1,000 ML 999 ML IV CONT (15:12)
[2022-08-08] MEDS: SODIUM CHLORIDE 0.9% IV 1,000 ML 999 ML IV CONT (16:23)
[2022-08-08 17:29] LABS: Reflex Lactic Acid Yes or No Add Lactic
--- NOTE | 2022-08-08 17:44 | PC.NURSE ---
pt amb slowly et steadily to bathroom with minimal assistance. voided without difficulty. amb steadily back to his exam room. mother states she will stay with pt at home tonight.
== END 2022-08-08 18:01 | disposition home or self-care (01) ==
PROVIDERS: Emergency Provider Internal Medicine Critical Care Medicine; PCP Family Medicine
DX: I95.1 Orthostatic hypotension (principal); N17.9 Acute kidney failure, unspecified; S09.90XA Unspecified injury of head, initial encounter; W19.XXXA Unspecified fall, initial encounter; E11.9 Type 2 diabetes mellitus without complications; E78.2 Mixed hyperlipidemia
CPT/HCPCS: 36415; 70450; 71045; 80053; 83605; 83880; 84484; 85025; 85610; 93005; 96360; 96361; 99284; J7030; J7040; J7120

== ENCOUNTER 2022-08-10 15:49 | Outpatient (CLI) | payer MEDICARE, SELFPAY ==
[2022-08-10 16:23] LABS: Basophils Absolute Auto 0.03 K/mm3 (0.00-0.10); Basophils Percent Auto 0.4 % (0.0-1.0); Eosinophils Absolute Auto 0.12 K/mm3 (0.02-0.50); Eosinophils Percent Auto 1.7 % (1.0-6.0); Hemoglobin 12.5 g/dL (12.4-15.3); Immature Granulocyte Absolute 0.02 K/mm3 (0.00-0.00); Immature Granulocyte Percent A 0.3 % (0.0-0.0); Lymphocytes Absolute Auto 1.57 K/mm3 (1.10-4.50); Lymphocytes Percent Auto 21.8 % (18.0-42.0); Mean Corpuscular HGB Conc 32.1 g/dL (32.0-36.0); Mean Corpuscular Hemoglobin 29.3 pg (27.0-31.0); Mean Corpuscular Volume 91.5 fL (78.0-102.0); Mean Platelet Volume 10.6 fl (8.7-11.0); Monocytes Percent Auto 6.9 % (2.0-11.0); Neutrophils Percent Auto 68.9 % (50.0-70.0); Platelet Count Result 163 K/mm3 (150-420); Red Blood Count 4.26 M/mm3 (4.70-6.10); Red Cell Distribution Width 13.4 % (11.6-14.4); White Blood Count 7.2 K/mm3 (4.8-10.8)
[2022-08-10 16:50] LABS: Hemoglobin A1C 5.9 % (<5.7)
[2022-08-10 17:00] LABS: Alanine Aminotransferase 29 U/L (16-63); Albumin Level 3.6 g/dL (3.4-5.0); Alkaline Phosphatase 60 U/L (46-116); Anion Gap 9 mmol/L (8-16); Aspartate Amino Transferase 28 U/L (15-37); Bilirubin,Total 0.6 mg/dL (0.00-1.00); Blood Urea Nitrogen 19 mg/dL (7-18); Calcium 8.8 mg/dL (8.5-10.1); Carbon Dioxide 31 mmol/L (21-32); Chloride 106 mmol/L (98-108); Estimated Glomerular Filt Rate 49; Glucose 124 mg/dL (70-99); Osmolality Calculated 305 mOsm/kg (285-295); Potassium 4.1 mmol/L (3.5-5.1); Sodium 146 mmol/L (136-145); Thyroid Stimulating Hormone 1.94 uIU/mL (0.36-3.74)
== END 2022-08-10 15:50 | disposition home or self-care (01) ==
LOC: CHSLAB 15:51
PROVIDERS: PCP Family Medicine; Visit Provider Family Medicine
DX: N28.9 Disorder of kidney and ureter, unspecified (principal); E11.9 Type 2 diabetes mellitus without complications; I10 Essential (primary) hypertension
CPT/HCPCS: 36415; 80053; 83036; 84443; 85025

== ENCOUNTER 2022-08-11 11:40 | Outpatient (CLI) | payer MEDICARE, SELFPAY ==
[2022-08-11 12:32] LABS: Creatinine Urine 177.76 mg/dL (40-278); MALB Creatinine Ratio 28.6 mg/g (0-30)
== END 2022-08-11 11:41 | disposition home or self-care (01) ==
PROVIDERS: PCP Family Medicine; Visit Provider Family Medicine
DX: N28.9 Disorder of kidney and ureter, unspecified (principal); E11.9 Type 2 diabetes mellitus without complications; I10 Essential (primary) hypertension
CPT/HCPCS: 82043

== ENCOUNTER 2022-09-05 08:36 | Outpatient (CLI) | payer MEDICARE, SELFPAY ==
[2022-09-05 08:56] LABS: Basophils Absolute Auto 0.02 K/mm3 (0.00-0.10); Basophils Percent Auto 0.3 % (0.0-1.0); Eosinophils Percent Auto 1.5 % (1.0-6.0); Hematocrit 41.6 % (37.0-46.0); Hemoglobin 13.5 g/dL (12.4-15.3); Immature Granulocyte Absolute 0.01 K/mm3 (0.00-0.00); Immature Granulocyte Percent A 0.2 % (0.0-0.0); Lymphocytes Absolute Auto 1.25 K/mm3 (1.10-4.50); Mean Corpuscular HGB Conc 32.5 g/dL (32.0-36.0); Mean Corpuscular Hemoglobin 29.7 pg (27.0-31.0); Mean Corpuscular Volume 91.4 fL (78.0-102.0); Mean Platelet Volume 10.6 fl (8.7-11.0); Monocytes Absolute Auto 0.39 K/mm3 (0.10-0.90); Monocytes Percent Auto 5.9 % (2.0-11.0); Neutrophils Absolute Auto 4.8 K/mm3 (1.7-7.2); Neutrophils Percent Auto 73.1 % (50.0-70.0); Platelet Count Result 170 K/mm3 (150-420); Red Blood Count 4.55 M/mm3 (4.70-6.10); Red Cell Distribution Width 13.2 % (11.6-14.4); White Blood Count 6.6 K/mm3 (4.8-10.8)
[2022-09-05 09:13] LABS: Hemoglobin A1C 6.1 % (<5.7)
[2022-09-05 09:30] LABS: Anion Gap 11 mmol/L (8-16); Blood Urea Nitrogen 18 mg/dL (7-18); Calcium 8.5 mg/dL (8.5-10.1); Carbon Dioxide 31 mmol/L (21-32); Chloride 104 mmol/L (98-108); Estimated Glomerular Filt Rate 56; Glucose 165 mg/dL (70-99); Osmolality Calculated 307 mOsm/kg (285-295); Potassium 3.3 mmol/L (3.5-5.1); Sodium 146 mmol/L (136-145)
== END 2022-09-05 08:37 | disposition home or self-care (01) ==
LOC: CHSLAB 08:41
PROVIDERS: PCP Family Medicine; Visit Provider Family Medicine
DX: E11.9 Type 2 diabetes mellitus without complications (principal)
CPT/HCPCS: 36415; 80048; 83036; 85025

== ENCOUNTER 2022-11-22 08:20 | Outpatient (CLI) | payer MEDICARE, OTHER, SELFPAY ==
[2022-11-22 09:12] LABS: Cholesterol 117 mg/dL (0-200); HDL Direct 61 mg/dL (40-60); LDL Cholesterol Calculated 39 mg/dL (<130); Triglycerides 87 mg/dL (0-150)
== END 2022-11-22 08:21 | disposition home or self-care (01) ==
LOC: CHSLAB 08:22
PROVIDERS: PCP Family Medicine; Visit Provider Internal Medicine Cardiovascular Disease
DX: E78.2 Mixed hyperlipidemia (principal)
CPT/HCPCS: 36415; 80061

== ENCOUNTER 2022-12-28 08:16 | Outpatient (CLI) | payer MEDICARE, SELFPAY ==
[2022-12-28 08:31] LABS: Hematocrit 42.9 % (37.0-46.0); Hemoglobin 13.8 g/dL (12.4-15.3); Mean Corpuscular HGB Conc 32.2 g/dL (32.0-36.0); Mean Corpuscular Hemoglobin 29.2 pg (27.0-31.0); Mean Corpuscular Volume 90.9 fL (78.0-102.0); Mean Platelet Volume 10.5 fl (8.7-11.0); Platelet Count Result 174 K/mm3 (150-420); Red Blood Count 4.72 M/mm3 (4.70-6.10); Red Cell Distribution Width 12.6 % (11.6-14.4); White Blood Count 6.9 K/mm3 (4.8-10.8)
[2022-12-28 08:41] LABS: Hemoglobin A1C 6.4 % (<5.7)
[2022-12-28 09:01] LABS: Anion Gap 10 mmol/L (8-16); Blood Urea Nitrogen 22 mg/dL (7-18); Calcium 8.9 mg/dL (8.5-10.1); Carbon Dioxide 30 mmol/L (21-32); Chloride 106 mmol/L (98-108); Estimated Glomerular Filt Rate 53; Glucose 148 mg/dL (70-99); Osmolality Calculated 308 mOsm/kg (285-295); Potassium 3.8 mmol/L (3.5-5.1); Sodium 146 mmol/L (136-145)
[2022-12-28 09:06] LABS: Band Neutrophils Percent 0 % (0-6); Eosinophils Absolute Manual 0.13 K/mm3 (0.02-0.5); Eosinophils Percent Manual 2 % (1-6); Lymphocytes Absolute Manual 1.58 K/mm3 (1.1-4.5); Lymphocytes Percent Manual 23 % (18-44); Monocytes Absolute Manual 0.34 K/mm3 (0.1-0.90); Monocytes Percent Manual 5 % (3-9); Neutrophils Absolute Manual 4.83 K/mm3 (1.3-6.7); Neutrophils Percent Manual 70 % (46-73); Platelet Estimate Adequate (Adequate); Total Cells Counted 100
== END 2022-12-28 08:17 | disposition home or self-care (01) ==
LOC: CHSLAB 08:19
PROVIDERS: PCP Family Medicine; Visit Provider Family Medicine
DX: E11.9 Type 2 diabetes mellitus without complications (principal)
CPT/HCPCS: 36415; 80048; 83036; 85025

== ENCOUNTER 2023-01-06 08:48 | Outpatient (CLI) | payer MEDICARE, SELFPAY ==
--- NOTE | ~2023-01-06 | MR_ITS ---
MRI of the brain Clinical History: Trauma Technique: Axial and sagittal T1-weighted images were acquired. These were followed by axial T2-weigh lashaun, diffusion weighted, gradient, and FLAIR images. Following intravenous administration of 20 cc Mu ltiHance gadolinium, T1-weighted fat-sat imaging was performed in the axial and coronal planes. Findings: There is no acute infarct, intracranial hemorrhage, or mass lesion. There are mild to moder ate chronic white matter changes in the periventricular white matter bilaterally. Ventricles and subarachnoid spaces are mildly prominent. Orbits are unremarkable. Paranasal sinuses a nd mastoid air cells are essentially clear. Major intracranial flow voids are intact. Sagittal midline structures are intact. No abnormal postcontrast enhancement identified. IMPRESSION: No intracranial hemorrhage, mass lesion, or acute infarct. Mild to moderate chronic microvascular ischemic changes and mild generalized atrophy. Reviewed, dictated and finalized at [facility]. IMPRESSION: No intracranial hemorrhage, mass lesion, or acute infarct. Mild to moderate chronic microvascular ischemic changes and mild generalized at rophy.
== END 2023-01-06 08:49 | disposition home or self-care (01) ==
LOC: CHSIMG 08:50
PROVIDERS: PCP Family Medicine; Visit Provider Family Medicine
DX: R25.1 Tremor, unspecified (principal)
CPT/HCPCS: 70553; A9577

== ENCOUNTER 2023-01-24 11:55 | Observation (INO) | payer MEDICARE, SELFPAY ==
[2023-01-24] VITALS (17 sets, daily range): BP systolic 80–130; BP diastolic 40–90; PULSE 84–115; RESP 17–20; TEMP 36.2–36.6; O2SAT 92–99; BMI 33.7
--- NOTE | ~2023-01-24 | XR_ITS ---
EXAMINATION: XR chest 1V portable DATE: 01/24/2023 15:17 INDICATION: Dizziness with generalized weakness. Suspected sepsis. TECHNIQUE: frontal view of the chest was obtained. COMPARISON: 10/08/2021 FINDINGS: Thin linear discoid atelectasis at the bilateral lower lung zones. No other airspace opacities, pulmo nary edema, pleural effusion or pneumothorax. Arch size is normal. IMPRESSION: 1. Mild discoid atelectasis at the bilateral lung bases. Reviewed, dictated and finalized at location A.
--- NOTE | ~2023-01-24 | CT_ITS ---
EXAMINATION: CT brain wo con DATE: 01/24/2023 12:43 INDICATION: Dizziness. General weakness. TECHNIQUE: Computed tomography (CT) of the head was performed without intravenous contrast. The mA wa s adjusted according to patient size. Iterative reconstruction technique was employed. The dose-lengt h product was 605.33 mGy-cm. COMPARISON: Head CT 08/08/2022, brain MRI 01/06/2023 FINDINGS: There are scattered areas of low attenuation in the cerebral white matter. There is no intr acranial hemorrhage, acute infarction, or abnormal intracranial mass lesion. The ventricles are erasto l in size. There are likely changes of ocular lens replacement surgeries. There is mild mucosal thick ening in the paranasal sinuses. The mastoid air cells are normal. IMPRESSION: 1. Stable moderate nonspecific cerebral white matter disease, which likely represents chronic small v essel ischemic disease. Reviewed, dictated and finalized at location A. IMPRESSION: 1. Stable moderate nonspecific cerebral white matter disease, which likely repr esents chronic small vessel ischemic disease.
--- NOTE | 2023-01-24 12:07 | ED.DIZZY ---
HPI - Dizziness General Chief Complaint: Dizziness Stated Complaint: Lethargic Time Seen by Provider: 01/24/23 12:06 Source: patient Mode of arrival: ambulatory Limitations: no limitations History of Present Illness HPI Narrative: 67-year-old history of hypertension, diabetes mellitus, dyslipidemia, MARLO on CPAP, testicular cancer, orthostatic hypotension on [place] has had recurrent episodes of dizziness on standing up. These symptoms seem to come on every few months. He has had an extensive workup including a Holter monitor, EEG, neuro assessment. Today he went to the chiropractor and had adjustment of his back for his chronic back pain. Subsequently he felt extremely dizzy /lightheaded. No seizure activity. No incontinence. EMS was called. Blood sugar was 137. His EKG revealed sinus tachycardia with a heart rate of 105. He was brought to the ER. patient denies any chest pain or shortness of breath. No focal neuro deficits. MD elicited complaint: dizziness and lightheadedness Onset (ago): hour(s) ( Started 1 hour ago) Timing: sudden onset Severity: severe Description: lightheadedness and off-balance History of similar symptoms: Yes Exacerbating factors: change in body position Relieving factors: lying down Associated symptoms: denies other symptoms Related Data Home Medications Medication Instructions Recorded Confirmed atorvastatin 20 mg tablet 20 mg PO DAILY 06/19/22 01/24/23 bupropion HCl 300 mg 24 hr tablet, 300 mg PO QAM 06/19/22 01/24/23 extended release potassium chloride 10 mEq 10 meq PO BID 06/19/22 01/24/23 tablet,extended release tamsulosin 0.4 mg capsule 0.4 mg PO BID 06/19/22 01/24/23 venlafaxine 150 mg 150 mg PO DAILY 06/19/22 01/24/23 capsule,extended release 24 hr metformin 500 mg tablet 1,000 mg PO BID 01/24/23 01/24/23 Allergies Allergy/AdvReac Type Severity Reaction Status Date / Time No Known Allergies Allergy Verified 01/24/23 12:15 Review of Systems Review of Systems: All systems reviewed & are unremarkable except as noted in HPI and below Constitutional: Constitutional: Reports as per HPI and Reports no additional constitutional complaints Eyes: Eyes: Reports as per HPI and Reports no additional eye complaints ENT: Reports system reviewed and no additional complaints, except as documented and Reports as per HPI Cardiovascular: Cardiovascular: Reports as per HPI and Reports no additional cardiovascular complaints Respiratory: Respiratory: Reports as per HPI and Reports no additional respiratory complaints Gastrointestinal: Gastrointestinal: Reports as per HPI and Reports no additional gastrointestinal complaints Genitourinary: Genitourinary: Reports no additional male genitourinary complaints Musculoskeletal: Musculoskeletal: Reports no additional musculoskeletal complaints, Reports as per HPI and Reports back pain Integumentary/Breasts: Skin/Breast: Reports system reviewed and no additional complaints, except as docu and Reports as per HPI Neurologic: Reports system reviewed and no additional complaints, except as documented and Reports as per HPI Psychiatric: Psychiatric: Reports no additional psychiatric complaints and Reports as per HPI Endocrine: Endocrine: Reports no additional endocrine complaints and Reports as per HPI Hematologic/Lymphatic: Hematologic/Lymphatic: Reports no additional hematologic/lymphatic complaints and Reports as per HPI Allergic/Immunologic: Allergic/Immunologic: Reports no additional allergic/immunologic complaints and Reports as per HPI [facility] Past Medical History Medical History Depression Diabetes mellitus Hypertension initial test 2014, declined CPAP Mixed hyperlipidemia Obstructive sleep apnea (~07/2021) Orthostatic hypotension Testicular cancer Surgical History Surgical History History of inguinal hernia rep
--- NOTE | 2023-01-24 12:23 | ECG_ITS ---
Measurements Intervals [place] Rate: 95 P: 26 [place]: 181 QRS: -22 QRSD: 90 T: 14 QT: 348 QTc: 439 Interpretive Statements SINUS RHYTHM POOR R WAVE PROGRESSION, ANTERIOR LEADS BASELINE ARTIFACT- II, III, AVR, AVL, AVF BORDERLINE ECG COMPARED TO ECG 08/08/2022 14:29:35 NO SIGNIFICANT CHANGES Electronically Signed On 01-24-2023 13:36:58 CDT by Henry Santiago D.O.
[2023-01-24 13:11] LABS: Basophils Absolute Auto 0.02 K/mm3 (0.00-0.10); Basophils Percent Auto 0.3 % (0.0-1.0); Eosinophils Absolute Auto 0.09 K/mm3 (0.02-0.50); Eosinophils Percent Auto 1.2 % (1.0-6.0); Hematocrit 40.8 % (37.0-46.0); Hemoglobin 13.4 g/dL (12.4-15.3); Immature Granulocyte Absolute 0.02 K/mm3 (0.00-0.00); Immature Granulocyte Percent A 0.3 % (0.0-0.0); Lymphocytes Absolute Auto 1.18 K/mm3 (1.10-4.50); Lymphocytes Percent Auto 15.6 % (18.0-42.0); Mean Corpuscular HGB Conc 32.8 g/dL (32.0-36.0); Mean Corpuscular Hemoglobin 29.1 pg (27.0-31.0); Mean Corpuscular Volume 88.5 fL (78.0-102.0); Mean Platelet Volume 10.8 fl (8.7-11.0); Monocytes Absolute Auto 0.41 K/mm3 (0.10-0.90); Monocytes Percent Auto 5.4 % (2.0-11.0); Neutrophils Absolute Auto 5.8 K/mm3 (1.7-7.2); Neutrophils Percent Auto 77.2 % (50.0-70.0); Platelet Count Result 172 K/mm3 (150-420); Red Blood Count 4.61 M/mm3 (4.70-6.10); Red Cell Distribution Width 12.6 % (11.6-14.4); White Blood Count 7.6 K/mm3 (4.8-10.8)
[2023-01-24 13:27] LABS: Lactic Acid Reflex 2.7 mmol/L (0.4-2.0)
[2023-01-24 13:31] LABS: Alanine Aminotransferase 32 U/L (16-63); Albumin Level 3.7 g/dL (3.4-5.0); Alkaline Phosphatase 62 U/L (46-116); Anion Gap 11 mmol/L (8-16); Aspartate Amino Transferase 20 U/L (15-37); Bilirubin,Total 0.9 mg/dL (0.00-1.00); Blood Urea Nitrogen 24 mg/dL (7-18); Calcium 8.7 mg/dL (8.5-10.1); Carbon Dioxide 24 mmol/L (21-32); Chloride 107 mmol/L (98-108); Estimated CRCL calculation 44 ml/min; Estimated Glomerular Filt Rate 36; Glucose 81 mg/dL (70-99); NT Pro B Type Natriuretic Pept 74 pg/mL (0-125); Osmolality Calculated 297 mOsm/kg (285-295); Potassium 4.3 mmol/L (3.5-5.1); Sodium 142 mmol/L (136-145); Total Protein 7.2 g/dL (6.4-8.2); Troponin I 8.5 ng/L (0.00-60.4)
--- NOTE | 2023-01-24 14:23 | PC.NURSE ---
meal provided to pt per dr dill request.
[2023-01-24 16:06] LABS: Reflex Lactic Acid Yes or No Add Lactic
--- NOTE | 2023-01-24 16:30 | ADMGEN ---
This patient, Houston Miller, was admitted to 2nd Floor Room 208-1. Patient/family oriented to hospital policies and general routines including ID bracelet, bed and alarms, visiting hours, pain management, procedures, bathroom and other care routines, personal items, smoking policy, room service/diet, and visiting hours. Information on how to activate the Rapid Response Team has been discussed. Patient/Family are encouraged to report perceived risks to care and to ask questions if they do not understand what they are told or what they should do.
[2023-01-24 16:39] LABS: Lactic Acid 1.9 mmol/L (0.4-2.0)
[2023-01-24] MEDS: SODIUM CHLORIDE 0.9% IV 1,000 ML 150 ML IV CONT (16:42)
[2023-01-24] MEDS: TAMSULOSIN HCL 0.4 MG CAPSULE PO (16:42)
[2023-01-24] MEDS: FLUDROCORTISONE ACETATE 0.1 MG TABLET PO (16:43)
[2023-01-24] MEDS: metFORMIN HCL 500 MG TABLET 1000 MG PO (16:43)
[2023-01-24] MEDS: POTASSIUM CHLORIDE 10 MEQ TABLET PO (16:44)
--- NOTE | 2023-01-24 20:48 | PC.NURSE ---
pt declines to void prior to bladder scan, 420mL residual found on bladder scanner, pt encouraged to try voiding again but was unable to, pt refuses durant catheter, fluids turned down to 120/hr per gas meter repair supervisor, 2L 02 put on for comfort at hs due to cpap left at home, call light in reach
[2023-01-24 23:42] LABS: Appearance Urine Clear (Clear); Bilirubin Urine Negative (Negative); Color Urine Light Yellow (Yellow); Glucose Urine UA Negative (Negative); Ketones Urine Negative (Negative); Leukocyte Esterase Ur Negative LEU/UL (Negative); Nitrate Urine Negative (Negative); Protein Urine Negative (Negative); Urobilinogen Urine 0.2 mg/dL (0.2-1.0); pH Urine 6.5 (5.0-8.0)
[2023-01-24 23:43] LABS: Blood Urine Negative (Negative)
[2023-01-24 23:44] LABS: Add Urine Microscopic? NO
[2023-01-25] VITALS: BP 138/95; PULSE 82; RESP 17; TEMP 36.4; O2SAT 99
[2023-01-25] MEDS: SODIUM CHLORIDE 0.9% IV 1,000 ML 120 ML IV CONT (01:23)
[2023-01-25 04:00] VITALS: PULSE 80
[2023-01-25 05:22] LABS: Hematocrit 38.7 % (37.0-46.0); Hemoglobin 12.6 g/dL (12.4-15.3); Mean Corpuscular HGB Conc 32.6 g/dL (32.0-36.0); Mean Corpuscular Hemoglobin 29.1 pg (27.0-31.0); Mean Corpuscular Volume 89.4 fL (78.0-102.0); Mean Platelet Volume 10.6 fl (8.7-11.0); Platelet Count Result 153 K/mm3 (150-420); Red Blood Count 4.33 M/mm3 (4.70-6.10); Red Cell Distribution Width 12.5 % (11.6-14.4); White Blood Count 7.6 K/mm3 (4.8-10.8)
[2023-01-25 05:35] LABS: Alanine Aminotransferase 32 U/L (16-63); Albumin Level 3.4 g/dL (3.4-5.0); Alkaline Phosphatase 61 U/L (46-116); Anion Gap 9 mmol/L (8-16); Aspartate Amino Transferase 16 U/L (15-37); Bilirubin,Total 0.8 mg/dL (0.00-1.00); Blood Urea Nitrogen 20 mg/dL (7-18); Calcium 8.2 mg/dL (8.5-10.1); Carbon Dioxide 26 mmol/L (21-32); Chloride 108 mmol/L (98-108); Estimated CRCL calculation 57 ml/min; Estimated Glomerular Filt Rate 50; Glucose 114 mg/dL (70-99); Osmolality Calculated 299 mOsm/kg (285-295); Potassium 3.9 mmol/L (3.5-5.1); Sodium 143 mmol/L (136-145); Total Protein 6.7 g/dL (6.4-8.2)
--- NOTE | 2023-01-25 06:36 | PM.SD2 ---
Same Day Admit/Disch: HPI History of Present Illness Chief complaint: Lethargic Narrative: this is a 67-year-old male that presented to emergency department after visiting his chiropractor for hypotension. Patient has a past medical history of orthostatic hypotension, acute on chronic renal failure,Depression, hypertension, diabetes, mixed hyperlipidemia, sleep apnea and testicular cancer. patient noted that he was was cover [employer] for treatment yesterday after treatment his blood pressure was taking and he was shown to be hypotensive EMS was called he was transported to our emergency department, he also admitted to having lightheadedness and dizziness during his hypertensive episode. Patient was admitted for hypotension, acute on chronic renal failure and dehydration patient's only significant lab was creatinine 1.88 and BUN and at 24 which was above his baseline. Patient has received IV hydration and his renal function has improved. Patient is anxious for discharge he will discharge today instructed to drink plenty of fluid to prevent dehydration a repeat lab to check his renal function will be ordered for 1 week with results going to primary care physician. Patient able to tolerate all meals , slept well and ambulate at baseline. Patient denies SOB, CP, palpitation, extremity numbness, lightheadness, dizziness, constipation, diarrhea, or chills or fever. Patient agree that they are ready for discharge and discharge plan. patient denies any lightheadedness or dizziness at this time, he has no complaints PMFSH Past Medical History Medical History Depression Diabetes mellitus Hypertension initial test 2014, declined CPAP Mixed hyperlipidemia Obstructive sleep apnea (~07/2021) Orthostatic hypotension Testicular cancer Surgical History Surgical History History of inguinal hernia repair Status post orchiectomy 1978 Family History Family History Father Diabetes mellitus Social History Social History Smoking status: Never smoker Second hand tobacco smoke exposure: Yes Alcohol intake: never Substance use: never Substance use type: does not use Lack of Transportation: No Lack of Food: Never True Current Housing: I Have Housing Concerned About Future Housing: No Difficulty Paying Gas/Electric Bills: No Difficulty Paying for Meds: No Currently Unemployed: No Education: Bachelor's Degree Difficulty w/ Childcare or Family Care: No Spiritual care concerns: No Same Day Admit/Disch: Med Pre-admit Medications Home Medications Medication Instructions Recorded Confirmed Type atorvastatin 20 mg tablet 20 mg PO DAILY 06/19/22 01/24/23 History bupropion HCl 300 mg 24 hr tablet, 300 mg PO QAM 06/19/22 01/24/23 History extended release potassium chloride 10 mEq 10 meq PO BID 06/19/22 01/24/23 History tablet,extended release tamsulosin 0.4 mg capsule 0.4 mg PO BID 06/19/22 01/24/23 History venlafaxine 150 mg 150 mg PO DAILY 06/19/22 01/24/23 History capsule,extended release 24 hr amlodipine 5 mg tablet 5 mg PO DAILY #30 tabs 08/14/22 01/24/23 Rx fludrocortisone 0.1 mg tablet 0.1 mg PO BID #60 tabs 01/02/23 01/24/23 Rx metformin 500 mg tablet 1,000 mg PO BID 01/24/23 01/24/23 History Exam Narrative: GENERAL: This is a well-nourished, well-developed patient, in no apparent distress. HEAD: normocephalic, atraumatic. EYES: PERRL. Sclera clear/white. Vision is grossly intact. EARS: External ears normal, auditory canals clear and without drainage, TMs normal without perforation. Hearing grossly intact. NOSE: External nose normal with no obvious nasal discharge, nares without redness, no rhinorrhea. THROAT: Mucous membranes moist, posterior pharynx clear. NECK: Neck supple
[2023-01-25 07:30] VITALS: BP 165/98; PULSE 84; PULSE 88; RESP 16; TEMP 36.6; O2SAT 95
[2023-01-25] MEDS: ENOXAPARIN 40 MG/0.4 ML SYRINGE SUB-Q (08:01)
[2023-01-25] MEDS: POTASSIUM CHLORIDE 10 MEQ TABLET PO (08:02)
[2023-01-25] MEDS: VENLAFAXINE HCL XR 75 MG CAP.ER.24H 150 MG PO (08:02)
[2023-01-25] MEDS: ATORVASTATIN 10 MG TABLET 20 MG PO (08:03)
[2023-01-25] MEDS: buPROPion HCL XL (24 HR) 150 MG TABCR 300 MG PO (08:03)
[2023-01-25] MEDS: metFORMIN HCL 500 MG TABLET 1000 MG PO (08:04)
[2023-01-25] MEDS: TAMSULOSIN HCL 0.4 MG CAPSULE PO (08:04)
[2023-01-25] MEDS: FLUDROCORTISONE ACETATE 0.1 MG TABLET PO (08:19)
--- NOTE | 2023-01-25 10:31 | PC.NURSE ---
IV access and telemetry discontinued in anticipation of discharge.
[2023-01-25 12:00] VITALS: PULSE 88; O2SAT 97
--- NOTE | 2023-01-25 12:45 | PC.NURSE ---
Patient left unit accompanied by check writer salesperson and patient's mother. Discharge instructions given to patient and his mother before discharge. Both voiced understanding. Personal belongings sent home with patient. Patient left hospital property in privately owned vehicle.
--- NOTE | 2023-01-28 00:39 | PC.NURSE ---
o action needed at this time waiting to follow up when cultures with sensitivities are resulted.
--- NOTE | 2023-01-30 11:43 | PC.NURSE ---
Pt states he received and understood the discharge instructions. Pt also states My nurse, Kesha, was very nice .
== END 2023-01-25 12:45 | disposition home or self-care (01) ==
LOC: CHSED 15:59 → CHS2ND 01-25 06:36
PROVIDERS: Nurse Practitioner; Admitting Provider Internal Medicine; Emergency Provider Internal Medicine Critical Care Medicine; PCP Family Medicine; Visit Provider Internal Medicine
DX: I95.1 Orthostatic hypotension (principal); N17.9 Acute kidney failure, unspecified; I12.9 Hypertensive chronic kidney disease with stage 1 through stage 4 chronic kidney disease, or unspecified chronic kidney disease; N18.9 Chronic kidney disease, unspecified; E11.22 Type 2 diabetes mellitus with diabetic chronic kidney disease; E78.5 Hyperlipidemia, unspecified; M54.59 Other low back pain; G89.29 Other chronic pain; G47.33 Obstructive sleep apnea (adult) (pediatric); F32.A Depression, unspecified; Z85.47 Personal history of malignant neoplasm of testis
CPT/HCPCS: 36415; 70450; 71045; 80053; 81003; 83605; 83880; 84484; 85025; 85027; 87040; 87147; 87186; 93005; 96360; 96361; 96372; 99285; A9270; G0378; J1650; J7030

== ENCOUNTER 2023-01-31 10:02 | Outpatient (CLI) | payer MEDICARE, SELFPAY ==
[2023-01-31 11:07] LABS: Alanine Aminotransferase 39 U/L (16-63); Albumin Level 3.9 g/dL (3.4-5.0); Alkaline Phosphatase 71 U/L (46-116); Anion Gap 11 mmol/L (8-16); Aspartate Amino Transferase 47 U/L (15-37); Bilirubin,Total 1.1 mg/dL (0.00-1.00); Blood Urea Nitrogen 17 mg/dL (7-18); Calcium 9.1 mg/dL (8.5-10.1); Carbon Dioxide 25 mmol/L (21-32); Chloride 107 mmol/L (98-108); Estimated Glomerular Filt Rate > 60; Glucose 150 mg/dL (70-99); Osmolality Calculated 300 mOsm/kg (285-295); Potassium 4.7 mmol/L (3.5-5.1); Sodium 143 mmol/L (136-145); Total Protein 7.8 g/dL (6.4-8.2)
[2023-01-31 13:13] LABS: Bilirubin Direct 0.1 mg/dL (0-0.2)
== END 2023-01-31 10:03 | disposition home or self-care (01) ==
LOC: CHSLAB 10:04
PROVIDERS: PCP Family Medicine; Visit Provider Family Medicine
DX: E86.0 Dehydration (principal); E80.7 Disorder of bilirubin metabolism, unspecified
CPT/HCPCS: 36415; 80053; 82248

== ENCOUNTER 2023-02-06 14:36 | Outpatient (RCR) | payer MEDICARE, SELFPAY ==
--- NOTE | 2023-02-06 14:34 | PTOPEVAL1 ---
Assessment and note entered by Brian Newby Evaluation Information Assessment Status Evaluation Diagnosis unstable gait, generalized weakness Onset 01/26/23 Subjective Information Pt. reports that he has noticed a decline in his mobility over the past year. He reports that the majority of his day he spends sitting at the computer. He states that he can recall 2 falling episodes in the past 6 months. He reports that he is not using a cane or walker. 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 He states that he is not using an AD. He reports that the longest he can stand currently is about 30 minutes . He reports that standing is most limited due to low back pain. He reports that LBP will come and go. He states that his goal is to be able to stand longer and improve his strength. Reported Pain Level Pain Score 0: Self Report Assessment PT Clinical Summary Pt. is a 67 year old male who enters the clinic due to impaired balance and weakness. He presents with moderate fall risk, impaired gait, impaired l.e. strength and impaired postural awareness. Continued skilled PT is indicated in order to improve these areas to allow the pt. to be able to complete all IADL's with improved safety and efficiency. Plan of Care Interventions Electrical Stimulation,Gait Training,Hot Pack/Cold Pack,Manual Therapy,Neuro Re-education,Patient/ Caregiver Educati,Therapeutic Activities, Therapeutic Exercise PT Services Indicated Yes Treatment Frequency and 3x/week x 12 visits Duration These treatments will address the objective and functional deficits as defined above. The patient will be advanced safely and appropriately in order for the patient to progress towards his/her prior level of function. Additional exercises will be introduced and as well as a comprehensive home exercise program upon discharge, if needed, ?to ensure carryover of functional gains achieved in the clinic. This treatment plan has been reviewed and agreement upon by the patient.
--- NOTE | 2023-02-06 14:34 | OPREHPOC ---
Outpatient Therapy Plan of Care This is a Multidisciplinary Plan of Care that may contain components documented by all disciplines (PT, OT, and ST.) PT Problem 1 PT Problem #1 Knowledge Deficit PT Goal 1 Goal Pt. will be independent with a HEP addressing strength and endurance Target Visit 2 PT Problem 2 PT Problem #2 Impaired Balance PT Goal 1 Goal Pt. will improve tinetti score to 24 or greater indicating improved safety. Target Visit 12 PT Problem 3 PT Problem #3 Impaired Gait PT Goal 1 Goal Pt. will demonstrate reciprocal u.e. movement with ambulation without verbal cuing Target Visit 8 PT Problem 4 PT Problem #4 Impaired Functional Mobil PT Goal 1 Goal Pt. will report being able to stand for 45 minutes or greater without rest Target Visit 12
--- NOTE | 2023-03-09 11:58 | OPREHPOC ---
Outpatient Therapy Plan of Care This is a Multidisciplinary Plan of Care that may contain components documented by all disciplines (PT, OT, and ST.) PT Problem 1 PT Problem #1 Knowledge Deficit PT Goal 1 Goal Pt. will be independent with a HEP addressing strength and endurance Target Visit 2 Progress Met PT Problem 2 PT Problem #2 Impaired Balance PT Goal 1 Goal Pt. will improve tinetti score to 24 or greater indicating improved safety. Target Visit 12 Progress Met PT Problem 3 PT Problem #3 Impaired Gait PT Goal 1 Goal Pt. will demonstrate reciprocal u.e. movement with ambulation without verbal cuing Target Visit 12 Comment continue PT Problem 4 PT Problem #4 Impaired Functional Mobil PT Goal 1 Goal Pt. will report being able to stand for 45 minutes or greater without rest Target Visit 12 Comment continue
--- NOTE | 2023-03-09 11:58 | PTOPPROGNS ---
Assessment and note entered by Dalila Gregory DPT Evaluation Information Assessment Status Evaluation Diagnosis unstable gait, generalized weakness Onset 01/26/23 Subjective Information Patient reports his balance has improved and he has not fallen. He reports when he stands still his low back starts to hurting. He reports he has been able to walk ~7 blocks before LBP starts Assessment PT Clinical Summary Patient has attended 9 visits of skilled PT with good improvement in LE strength and balance. He reports improved balance but continues to have low back pain with standing for prolonged periods of time for house hold tasks. He would benefit from remaining 3 visits to address remaining impairments and return to PLOF. Plan of Care Interventions Electrical Stimulation,Gait Training,Hot Pack/Cold Pack,Manual Therapy,Neuro Re-education,Patient/ Caregiver Educati,Therapeutic Activities, Therapeutic Exercise PT Services Indicated Yes Treatment Frequency and continue with remaining 3 visits Duration These treatments will address the objective and functional deficits as defined above. The patient will be advanced safely and appropriately in order for the patient to progress towards his/her prior level of function. Additional exercises will be introduced and as well as a comprehensive home exercise program upon discharge, if needed, ?to ensure carryover of functional gains achieved in the clinic. This treatment plan has been reviewed and agreement upon by the patient.
--- NOTE | 2023-03-16 13:55 | PTOPREEVAL ---
Assessment and note entered by JT File, PT Evaluation Information Assessment Status Re-evaluation Diagnosis unstable gait, generalized weakness Onset 01/26/23 Subjective Information patient reports a few days ago he was picking up sticks in his yard and lost his balance. he reports he dislocated his finger. patient reports today he has been diagnosed with parkinsons a few months ago. he reports he has not taken all of his prescirbed meds today, and has not checked his blood sugar. Reported Pain Level Pain Score 0: Self Report Pain Score 0: Self Report Assessment PT Clinical Summary mr. al presents to skilled PT today for his 12th skilled therapy visit. he presents today with conitnued deficits in safety/balance. he scores well on the tinetti, but displays increased fall risk per the TUG and 5x sit to stand. he is unsteady on his feet with stair ambulation and level ground ambulation. he is complicated by a relatively new diagnosis of parkinsons, and today has forgotten to check his blood sugar and take all his medications. he would benefit from continued skilled PT to continue to work towards achievement of his goals to decrease fall risk and worsening gait and functional mobility/ independence due to parkinsons. Plan of Care Interventions Electrical Stimulation,Gait Training,Hot Pack/Cold Pack,Manual Therapy,Neuro Re-education,Patient/ Caregiver Educati,Therapeutic Activities, Therapeutic Exercise PT Services Indicated Yes Treatment Frequency and continue skilled PT 2x weekly for 6 more visits Duration These treatments will address the objective and functional deficits as defined above. The patient will be advanced safely and appropriately in order for the patient to progress towards his/her prior level of function. Additional exercises will be introduced and as well as a comprehensive home exercise program upon discharge, if needed, ?to ensure carryover of functional gains achieved in the clinic. This treatment plan has been reviewed and agreement upon by the patient.
--- NOTE | 2023-03-16 13:55 | OPREHPOC ---
Outpatient Therapy Plan of Care This is a Multidisciplinary Plan of Care that may contain components documented by all disciplines (PT, OT, and ST.) PT Problem 1 PT Problem #1 Knowledge Deficit PT Goal 1 Goal Pt. will be independent with a HEP addressing strength and endurance Target Visit 2 Progress Met PT Problem 2 PT Problem #2 Impaired Balance PT Goal 1 Goal Pt. will improve tinetti score to 24 or greater indicating improved safety. Target Visit 12 Progress Met PT Goal 2 Goal 1. TUG to be performed in 10 seconds or less with independent performance and not crossing midline of the feet. 2. 5x sit to stand to be performed in under 15 seconds Target Visit 18 PT Problem 3 PT Problem #3 Impaired Gait PT Goal 1 Goal 1. Pt. will demonstrate reciprocal u.e. movement with ambulation without verbal cuing 2. patient to safely climb steps up and down with 1 hand rail assistance. Target Visit 18 Comment continue PT Problem 4 PT Problem #4 Impaired Functional Mobil PT Goal 1 Goal 1.Pt. will report being able to stand for 45 minutes or greater without rest Target Visit 18 Comment continue
== END 2023-04-05 23:59 | disposition home or self-care (01) ==
LOC: CHSPT 14:36
PROVIDERS: PCP Family Medicine; Visit Provider Family Medicine
DX: R26.81 Unsteadiness on feet (principal)
CPT/HCPCS: 97110; 97112; 97161; 97530

== ENCOUNTER 2023-02-11 13:12 | Observation (INO) | payer MEDICARE, SELFPAY ==
[2023-02-11] VITALS (35 sets, daily range): BP systolic 87–150; BP diastolic 61–95; PULSE 82–123; RESP 14–20; TEMP 36.4–37; O2SAT 90–96; BMI 32.9
--- NOTE | ~2023-02-11 | XR_ITS ---
XR chest 1V portable DATE: 02/11/2023 14:10 INDICATION: Syncope TECHNIQUE: Portable AP chest on 02/11/2023 at 1407 hours COMPARISON: None FINDINGS: Normal heart size. Aortic arch calcification. No hilar or mediastinal enlargement. Minimal atelectasis at the lung bases. Lungs are otherwise clear. Surgical clips overlie the upper mid abdomen. Old overriding inferiorly displaced fracture of the midshaft of the left clavicle. IMPRESSION: Minimal atelectasis at the lung bases Aortic calcification Reviewed, dictated and finalized at location A.
--- NOTE | 2023-02-11 13:23 | ED.GENADULT ---
HPI - General Adult General Chief complaint: Syncope Stated complaint: syncope Time Seen by Provider: 02/11/23 13:21 Source: patient Mode of arrival: EMS Limitations: no limitations History of Present Illness HPI narrative: 67-year-old white male lives alone stay he thinks he is dehydrated passed out about 5 times and last hour without any injury brought by EMS complains of generalized weakness. Denies any pain or shortness of breath or difficulty breathing or cough. Complains of dizziness and lightheadedness specially when standing up. Denies any nausea vomiting diarrhea fever cough runny nose sore throat bleeding or bruising lumps or bumps rash or itching. This complains of fatigue and feeling tired. Said he was in the hospital couple weeks ago for dehydration was in for 1 day. patient thinks he is dehydrated now. He has not been eating or drinking very much because he wants to lose weight. Related Data Home Medications Medication Instructions Recorded Confirmed atorvastatin 20 mg tablet 20 mg PO DAILY 06/19/22 02/11/23 bupropion HCl 300 mg 24 hr tablet, 300 mg PO QAM 06/19/22 02/11/23 extended release potassium chloride 10 mEq 10 meq PO BID 06/19/22 02/11/23 tablet,extended release tamsulosin 0.4 mg capsule 0.4 mg PO BID 06/19/22 02/11/23 venlafaxine 150 mg 150 mg PO DAILY 06/19/22 02/11/23 capsule,extended release 24 hr metformin 500 mg tablet 1,000 mg PO BID 01/24/23 02/11/23 Allergies Allergy/AdvReac Type Severity Reaction Status Date / Time No Known Allergies Allergy Verified 01/24/23 12:15 Review of Systems Review of Systems: All systems reviewed & are unremarkable except as noted in HPI and below PMFSH Past Medical History Medical History Depression Diabetes mellitus Hypertension initial test 2014, declined CPAP Mixed hyperlipidemia Obstructive sleep apnea (~07/2021) Orthostatic hypotension Testicular cancer Surgical History Surgical History History of inguinal hernia repair Status post orchiectomy 1979 Family History Family History Father Diabetes mellitus Social History Social History Smoking status: Never smoker Second hand tobacco smoke exposure: Yes Alcohol intake: never Substance use: never Substance use type: does not use Lack of Transportation: No Lack of Food: Never True Current Housing: I Have Housing Concerned About Future Housing: No Difficulty Paying Gas/Electric Bills: No Difficulty Paying for Meds: No Currently Unemployed: No Education: Bachelor's Degree Difficulty w/ Childcare or Family Care: No Spiritual care concerns: No Exam Narrative: Patient is a white male? and appears in no apparent distress. ? Head is normocephalic atraumatic. ? Eyes:? Pupils are equal round react light extraocular movements are intact. ? Ears:? TMs are normal .? Ear canals are normal.? Hearing is grossly normal. ? Nose:? Normal. ? Throat:? Oropharynx is clear with moist mucous membranes.? Posterior pharynx is clear with no exudates. Lips are dry ? Neck:? Supple no lymphadenopathy.? Full range of motion? without tenderness. ??Lungs:? Clear to auscultation without wheezes rales or rhonchi . Thorax:? Chest wall nontender without crepitation. ? Heart:? Regular rate and rhythm without murmurs gallops or rubs. ? Back:? Nontender. ? Abdomen:? Positive bowel sounds, soft, nontender, no hepatosplenomegaly or masses, no CVA tenderness, no abdominal bruits, no guarding or rebound. ? Extremities:? Full range of motion nontender .?? No cyanosis clubbing or edema. ?Neuro:? alert and oriented x4.? Motor and sensory grossly intact.? Speech is normal.? Affect normal.? Cranial nerves 2-12 are normal . ? Skin:? Warm and dry without lesions. Course
--- NOTE | 2023-02-11 13:31 | ECG_ITS ---
Measurements Intervals [place] Rate: 89 P: 34 AK: 171 QRS: -18 QRSD: 101 T: 18 QT: 365 QTc: 445 Interpretive Statements SINUS RHYTHM NORMAL ECG COMPARED TO ECG 01/24/2023 12:53:35 NO SIGNIFICANT CHANGES Electronically Signed On 02-12-2023 9:29:24 CDT by Mickey Conde M.D.
[2023-02-11] MEDS: SODIUM CHLORIDE 0.9% IV 1,000 ML 999 ML IV CONT (13:49)
[2023-02-11 15:21] LABS: Hematocrit 42.4 % (37.0-46.0); Hemoglobin 13.3 g/dL (12.4-15.3); Mean Corpuscular HGB Conc 31.4 g/dL (32.0-36.0); Mean Corpuscular Hemoglobin 28.9 pg (27.0-31.0); Mean Corpuscular Volume 92.2 fL (78.0-102.0); Platelet Count Result 173 K/mm3 (150-420); Red Cell Distribution Width 13.1 % (11.6-14.4); White Blood Count 10.4 K/mm3 (4.8-10.8)
[2023-02-11 15:32] LABS: Appearance Urine Clear (Clear); Bilirubin Urine Negative (Negative); Blood Urine Trace-Intact (Negative); Color Urine Yellow (Yellow); Glucose Urine UA Negative (Negative); Ketones Urine Negative (Negative); Leukocyte Esterase Ur Negative LEU/UL (Negative); Nitrate Urine Negative (Negative); Protein Urine 1+ (Negative); Specific Grav Ur 1.025 (1.010-1.020)
[2023-02-11 15:36] LABS: Add Urine Microscopic? YES
[2023-02-11 15:37] LABS: D Dimer 0.38 mg/L (0.19-0.50); Partial Thromboplastin Time 24.1 SEC (23.90-30.70); Prothrombin Time 11.1 Seconds (9.50-12.10)
--- NOTE | 2023-02-11 15:39 | PC.NURSE ---
diabetic food tray provided.
[2023-02-11 15:41] LABS: Alanine Aminotransferase 33 U/L (16-63); Albumin Level 3.5 g/dL (3.4-5.0); Alkaline Phosphatase 69 U/L (46-116); Anion Gap 9 mmol/L (8-16); Aspartate Amino Transferase 22 U/L (15-37); Bilirubin,Total 0.7 mg/dL (0.00-1.00); Blood Urea Nitrogen 15 mg/dL (7-18); Calcium 8.7 mg/dL (8.5-10.1); Carbon Dioxide 26 mmol/L (21-32); Chloride 109 mmol/L (98-108); Estimated CRCL calculation 47 ml/min; Estimated Glomerular Filt Rate 39; Ethanol < 3 mg/dL (0-6); Glucose 111 mg/dL (70-99); Magnesium 1.9 mg/dL (1.8-2.4); NT Pro B Type Natriuretic Pept 362 pg/mL (0-125); Osmolality Calculated 299 mOsm/kg (285-295); Potassium 4.3 mmol/L (3.5-5.1); Sodium 144 mmol/L (136-145); Total Protein 6.8 g/dL (6.4-8.2); Troponin I 10.3 ng/L (0.00-60.4)
[2023-02-11 16:06] LABS: Cellular Casts Urine Present /lpf; Hyaline Casts Urine 50+ /lpf; Mucus Urine Heavy /lpf
[2023-02-11 16:35] LABS: Influenza A QL RT-PCR Negative (Negative); Influenza B QL RT-PCR Negative (Negative); RSV RNA, RT-PCR Negative (Negative); SARS-CoV-2 RNA PCR Negative (Negative)
--- NOTE | 2023-02-11 17:30 | ADMGEN ---
This patient, Houston Miller, was admitted to 2nd Floor Room 208-2 due to dehydration/syncopal episodes. Patient/family oriented to hospital policies and general routines including ID bracelet, bed and alarms, visiting hours, pain management, procedures, bathroom and other care routines, personal items, smoking policy, room service/diet, and visiting hours. Information on how to activate the Rapid Response Team has been discussed. Patient/Family are encouraged to report perceived risks to care and to ask questions if they do not understand what they are told or what they should do.
[2023-02-11 18:06] LABS: Reflex Lactic Acid Yes or No Add Lactic
[2023-02-11] MEDS: FLUDROCORTISONE ACETATE 0.1 MG TABLET PO (18:45)
[2023-02-11] MEDS: TAMSULOSIN HCL 0.4 MG CAPSULE PO (18:45)
[2023-02-11] MEDS: SODIUM CHLORIDE 0.9% IV 1,000 ML 100 ML IV CONT (18:46)
[2023-02-11 21:01] LABS: Lactic Acid 1.6 mmol/L (0.4-2.0)
[2023-02-11 21:15] LABS: Glucose Point of Care 100 mg/dl (65-105)
[2023-02-12 03:54] VITALS: BP 147/92; PULSE 76; PULSE 78; RESP 18; TEMP 36.3; O2SAT 93
[2023-02-12] MEDS: SODIUM CHLORIDE 0.9% IV 1,000 ML 100 ML IV CONT (04:55)
[2023-02-12 05:41] LABS: Basophils Absolute Auto 0.03 K/mm3 (0.00-0.10); Basophils Percent Auto 0.4 % (0.0-1.0); Eosinophils Absolute Auto 0.11 K/mm3 (0.02-0.50); Eosinophils Percent Auto 1.5 % (1.0-6.0); Hematocrit 41.5 % (37.0-46.0); Hemoglobin 13.2 g/dL (12.4-15.3); Immature Granulocyte Absolute 0.02 K/mm3 (0.00-0.00); Immature Granulocyte Percent A 0.3 % (0.0-0.0); Lymphocytes Absolute Auto 1.54 K/mm3 (1.10-4.50); Lymphocytes Percent Auto 20.4 % (18.0-42.0); Mean Corpuscular HGB Conc 31.8 g/dL (32.0-36.0); Mean Corpuscular Hemoglobin 29.2 pg (27.0-31.0); Mean Corpuscular Volume 91.8 fL (78.0-102.0); Mean Platelet Volume 11.6 fl (8.7-11.0); Monocytes Absolute Auto 0.39 K/mm3 (0.10-0.90); Monocytes Percent Auto 5.2 % (2.0-11.0); Neutrophils Absolute Auto 5.5 K/mm3 (1.7-7.2); Neutrophils Percent Auto 72.2 % (50.0-70.0); Platelet Count Result 169 K/mm3 (150-420); Red Blood Count 4.52 M/mm3 (4.70-6.10); Red Cell Distribution Width 13.1 % (11.6-14.4); White Blood Count 7.5 K/mm3 (4.8-10.8)
[2023-02-12 05:56] LABS: Alanine Aminotransferase 35 U/L (16-63); Albumin Level 3.2 g/dL (3.4-5.0); Alkaline Phosphatase 64 U/L (46-116); Anion Gap 10 mmol/L (8-16); Aspartate Amino Transferase 25 U/L (15-37); Bilirubin,Total 0.7 mg/dL (0.00-1.00); Blood Urea Nitrogen 12 mg/dL (7-18); Calcium 8.1 mg/dL (8.5-10.1); Carbon Dioxide 27 mmol/L (21-32); Chloride 107 mmol/L (98-108); Creatine Kinase 104 U/L (39-308); Estimated CRCL calculation 63 ml/min; Estimated Glomerular Filt Rate 57; Glucose 107 mg/dL (70-99); Magnesium 1.9 mg/dL (1.8-2.4); Osmolality Calculated 297 mOsm/kg (285-295); Potassium 3.5 mmol/L (3.5-5.1); Sodium 144 mmol/L (136-145); Total Protein 6.4 g/dL (6.4-8.2)
[2023-02-12 08:00] VITALS: BP 164/97; BP 95/62; PULSE 82; PULSE 86; RESP 14; TEMP 36.7; O2SAT 92
[2023-02-12 08:20] VITALS: BP 110/80
[2023-02-12] MEDS: buPROPion HCL XL (24 HR) 150 MG TABCR 300 MG PO (09:03)
[2023-02-12] MEDS: TAMSULOSIN HCL 0.4 MG CAPSULE PO (09:03)
[2023-02-12] MEDS: FLUDROCORTISONE ACETATE 0.1 MG TABLET PO (09:03)
[2023-02-12] MEDS: ATORVASTATIN 10 MG TABLET 20 MG PO (09:03)
[2023-02-12] MEDS: amLODIPine BESYLATE 5 MG TABLET PO (09:04)
[2023-02-12] MEDS: VENLAFAXINE HCL XR 75 MG CAP.ER.24H 150 MG PO (09:04)
--- NOTE | 2023-02-12 09:40 | PM.SD2 ---
Same Day Admit/Disch: HPI History of Present Illness Chief complaint: DEHYDRATION ACUTE KIDNEY INJURY Narrative: Houston Miller is a 67 year old male past medical history of hypertension, diabetes, Tremors, falls 67-year-old white male lives alone stay he thinks he is dehydrated passed out about 5 times and last hour without any injury brought by EMS complains of generalized weakness.? Denies any pain or shortness of breath or difficulty breathing or cough.? Complains of dizziness and lightheadedness specially when standing up.? Denies any nausea vomiting diarrhea fever cough runny nose sore throat bleeding or bruising lumps or bumps rash or itching.? This complains of fatigue and feeling tired.? Said he was in the hospital couple weeks ago for dehydration was in for 1 day.? patient thinks he is dehydrated now.? He has not been eating or drinking very much because he wants to lose weig PMFSH Past Medical History Medical History (Updated 02/12/23 @ 09:46 by Brenda Lozoya NP) Depression Diabetes mellitus Hypertension initial test 2014, declined CPAP Mixed hyperlipidemia Obstructive sleep apnea (~07/2021) Orthostatic hypotension Testicular cancer Tremor Surgical History Surgical History History of inguinal hernia repair Status post orchiectomy 1979 Family History Family History Father Diabetes mellitus Social History Social History Smoking status: Never smoker Second hand tobacco smoke exposure: Yes Alcohol intake: never Substance use: never Substance use type: does not use Lack of Transportation: No Lack of Food: Never True Current Housing: I Have Housing Concerned About Future Housing: No Difficulty Paying Gas/Electric Bills: No Difficulty Paying for Meds: No Currently Unemployed: No Education: Bachelor's Degree Difficulty w/ Childcare or Family Care: No Spiritual care concerns: No Same Day Admit/Disch: Med Pre-admit Medications Home Medications Medication Instructions Recorded Confirmed Type atorvastatin 20 mg tablet 20 mg PO DAILY 06/19/22 02/11/23 History bupropion HCl 300 mg 24 hr tablet, 300 mg PO QAM 06/19/22 02/11/23 History extended release potassium chloride 10 mEq 10 meq PO BID 06/19/22 02/11/23 History tablet,extended release tamsulosin 0.4 mg capsule 0.4 mg PO BID 06/19/22 02/11/23 History venlafaxine 150 mg 150 mg PO DAILY 06/19/22 02/11/23 History capsule,extended release 24 hr amlodipine 5 mg tablet 5 mg PO DAILY #30 tabs 08/14/22 02/11/23 Rx fludrocortisone 0.1 mg tablet 0.1 mg PO BID #60 tabs 01/02/23 02/11/23 Rx metformin 500 mg tablet 1,000 mg PO BID 01/24/23 02/11/23 History Exam Narrative: GENERAL:Well-appearing, well-nourished, and in no acute distress. HEAD:Normocephalic, atraumatic. EYES: PERRLA and EOMI. ENT: Nares clear, no rhinorrhea or epistaxis. Mucous membranes moist. CHEST: Clear to auscultation. No respiratory distress. HEART: Regular rate and rhythm. Normal peripheral pulses. ABDOMEN: Soft, nontender, nondistended, normal active bowel sounds. EXTREMITIES: Normal range of motion. trace edema. SKIN: Warm, dry, no rash. NEURO: No focal deficits. Alert and oriented x3. DS: Data Data Completed and Pending Labs on day of discharge: Labs from last 24 hours 02/12/23 02/11/23 02/11/23 05:06 21:10 20:29 WBC 7.5 RBC 4.52 L Hgb 13.2 Hct 41.5 MCV 91.8 MCH 29.2 MCHC 31.8 L RDW 13.1 Plt Count 169 MPV 11.6 H Immature Gran % (Auto) 0.3 H Neut % (Auto) 72.2 H Lymph % (Auto) 20.4 [place] % (Auto) 5.2 Eos % (Auto) 1.5 Baso % (Auto) 0.4 Lymph # (Auto) 1.54 [place] # (Auto) 0.39 Eos # (Auto) 0.11 Baso # (Auto) 0.03 Abs Immat Gran (auto) 0.02 H Absolute Neuts (auto) 5.5 Absolute Nucleated
[2023-02-12 11:36] LABS: Glucose Point of Care 111 mg/dl (65-105)
--- NOTE | 2023-02-12 14:08 | PC.NURSE ---
Pt discharged to home. VSS, gait steady. Discharge instructions given to pt. Drink plenty of water daily at least 6 cups. Eat every day. Do not fast for days at a time. Take medications as directed by your doctor. Keep your follow up appointments . Pt has personal items , wallet, watch and glasses. RN took pt to family car and assisted him inside.
--- NOTE | 2023-02-13 13:51 | PC.NURSE ---
Pt states he received and understood the discharge instructions. Pt has no other comments.
== END 2023-02-12 13:55 | disposition home or self-care (01) ==
LOC: CHSED 17:11 → CHS2ND 17:18
PROVIDERS: Nurse Practitioner; Admitting Provider Internal Medicine; Emergency Provider Emergency Medicine; PCP Family Medicine; Visit Provider Nurse Practitioner Family
DX: N17.9 Acute kidney failure, unspecified (principal); E86.0 Dehydration; I95.1 Orthostatic hypotension; E11.9 Type 2 diabetes mellitus without complications; I10 Essential (primary) hypertension; R25.1 Tremor, unspecified; G47.33 Obstructive sleep apnea (adult) (pediatric); F32.A Depression, unspecified; Z85.47 Personal history of malignant neoplasm of testis; Z20.822 Contact with and (suspected) exposure to COVID-19; Z79.899 Other long term (current) drug therapy
CPT/HCPCS: 36415; 71045; 80053; 80307; 81001; 82550; 82948; 83605; 83735; 83880; 84484; 85025; 85027; 85380; 85610; 85730; 87637; 93005; 96360; 96361; 97161; 99285; A9270; G0378; J7030

== ENCOUNTER 2023-03-14 09:56 | Emergency (ER) | payer MEDICARE, SELFPAY ==
[2023-03-14] VITALS (9 sets, daily range): BP systolic 127–150; BP diastolic 88–98; PULSE 95–101; RESP 18–22; TEMP 37.1; O2SAT 88–98
--- NOTE | ~2023-03-14 | CT_ITS ---
EXAMINATION: CT brain wo con DATE: 03/14/2023 10:48 INDICATION: Dizziness. Fall. TECHNIQUE: Computed tomography (CT) of the head was performed without intravenous contrast. The mA wa s adjusted according to patient size. Iterative reconstruction technique was employed. The dose-lengt h product was 605.33 mGy-cm. COMPARISON: Head CT 01/24/2023 FINDINGS: There are scattered areas of low attenuation in the cerebral white matter. There is no intr acranial hemorrhage, acute infarction, or abnormal intracranial mass lesion. The ventricles are erasto l in size. There are likely changes of ocular lens replacement surgeries. There is mild mucosal thick ening in the paranasal sinuses. The mastoid air cells are normal. IMPRESSION: 1. Stable moderate nonspecific cerebral white matter disease, which likely represents chronic small v essel ischemic disease. Reviewed, dictated and finalized at location A. IMPRESSION: 1. Stable moderate nonspecific cerebral white matter disease, which likely repr esents chronic small vessel ischemic disease.
--- NOTE | ~2023-03-14 | XR_ITS ---
EXAMINATION: XR hand LT min 3V DATE: 03/14/2023 11:31 INDICATION: Left hand third proximal interphalangeal joint dislocation status post reduction. TECHNIQUE: 3 views of left hand were obtained. COMPARISON: Left hand radiographs at 10:50 AM FINDINGS: There is hyperextension of third proximal interphalangeal joint. No fracture. There is mild osteoarthritis of first carpometacarpal joint, third metacarpophalangeal joint, and some of the inte rphalangeal joints. There is soft tissue swelling of the third digit. IMPRESSION: 1. Hyperextension at third proximal interphalangeal joint. 2. Mild polyarticular osteoarthritis. Reviewed, dictated and finalized at location A.
--- NOTE | ~2023-03-14 | XR_ITS ---
EXAMINATION: XR chest 1V portable DATE: 03/14/2023 10:58 INDICATION: Fall TECHNIQUE: frontal view of the chest was obtained. COMPARISON: Chest radiograph dated 02/11/2023 and 01/24/2023 FINDINGS: Linear bandlike opacity extending laterally from the apex of the left hemidiaphragm consistent with d iscoid atelectasis. No new airspace opacities, pulmonary edema, pleural effusion or pneumothorax. The cardiomediastinal silhouette is normal. Visualized bones and soft tissues are unremarkable. IMPRESSION: 1. Left basilar discoid atelectasis. Reviewed, dictated and finalized at location B.
--- NOTE | ~2023-03-14 | XR_ITS ---
Left Hand Technique: PA, oblique, and lateral views were obtained. Clinical History: Injury Findings: There is dorsal dislocation at the third PIP joint. No fracture seen. Remaining joint space s are preserved. Soft tissues are unremarkable. Impression: Dorsal dislocation of the third PIP joint. No fracture seen. Reviewed, dictated and finalized at location . Impression: Dorsal dislocation of the third PIP joint. No fracture seen.
--- NOTE | ~2023-03-14 | XR_ITS ---
EXAMINATION: XR pelvis 1-2V DATE: 03/14/2023 10:59 INDICATION: Fall. TECHNIQUE: An anteroposterior view of the pelvis was obtained. COMPARISON: None. FINDINGS: Bone alignment is normal. No fracture. There is at least mild lumbar spondylosis. There is mild osteoarthritis of the hips. Surgical clips overlie the abdomen. IMPRESSION: 1. Mild osteoarthritis of the hips. Reviewed, dictated and finalized at location A.
--- NOTE | 2023-03-14 10:15 | ED.FALL ---
HPI - Fall General Chief Complaint: Fall Stated Complaint: fall Time Seen by Provider: 03/14/23 10:15 Source: patient Mode of arrival: EMS History of Present Illness HPI Narrative: 67-year-old male with a history of hypertension, diabetes mellitus, dyslipidemia, obstructive sleep apnea, status post inguinal hernia repair, testicular cancer status post orchiectomy, tremors, orthostatic hypotension, recurrent falls presents to the ER after a fall. he was picking up sticks in his yd when he lost balance and fell. No head injury or loss of consciousness. Left hand pain with deformity of the 3rd metacarpal abrasions over his left hand, forearm and left knee the patient had placement of a C-collar. Patient brought in by EMS MD complaint: fall Onset (ago): hour(s) ( 1 hour ago) Fall from: standing Fall witnessed: no Place fall occurred: home Loss of consciousness: none Prolonged down time: no Symptoms prior to fall: none Context: tripped/slipped Location of injury - extremities: Left: hand Severity: mild Associated symptoms (after fall): denies Related Data Home Medications Medication Instructions Recorded Confirmed atorvastatin 20 mg tablet 20 mg PO DAILY 06/19/22 03/14/23 bupropion HCl 300 mg 24 hr tablet, 300 mg PO QAM 06/19/22 03/14/23 extended release potassium chloride 10 mEq 10 meq PO BID 06/19/22 03/14/23 tablet,extended release tamsulosin 0.4 mg capsule 0.4 mg PO BID 06/19/22 03/14/23 venlafaxine 150 mg 150 mg PO DAILY 06/19/22 03/14/23 capsule,extended release 24 hr metformin 500 mg tablet 1,000 mg PO BID 01/24/23 03/14/23 carbidopa 25 mg-levodopa 100 mg 1 tablet PO DAILY 03/14/23 03/14/23 tablet quetiapine 25 mg tablet 25 mg PO HS 03/14/23 03/14/23 Allergies Allergy/AdvReac Type Severity Reaction Status Date / Time povidone-iodine Allergy Rash Verified 03/14/23 10:07 [From Betadine] Review of Systems Review of Systems: All systems reviewed & are unremarkable except as noted in HPI and below Constitutional: Constitutional: Reports as per HPI and Reports no additional constitutional complaints Eyes: Eyes: Reports as per HPI and Reports no additional eye complaints ENT: Reports system reviewed and no additional complaints, except as documented and Reports as per HPI Cardiovascular: Cardiovascular: Reports as per HPI and Reports no additional cardiovascular complaints Respiratory: Respiratory: Reports as per HPI and Reports no additional respiratory complaints Gastrointestinal: Gastrointestinal: Reports as per HPI and Reports no additional gastrointestinal complaints Genitourinary: Genitourinary: Reports no additional male genitourinary complaints and Reports as per HPI Musculoskeletal: Musculoskeletal: Reports no additional musculoskeletal complaints and Reports as per HPI Comments: left hand pain Integumentary/Breasts: Comments: abrasions of left hand forearm and Neurologic: Reports system reviewed and no additional complaints, except as documented and Reports as per HPI Comments: tremor Psychiatric: Psychiatric: Reports no additional psychiatric complaints and Reports as per HPI Endocrine: Endocrine: Reports no additional endocrine complaints and Reports as per HPI Hematologic/Lymphatic: Hematologic/Lymphatic: Reports no additional hematologic/lymphatic complaints and Reports as per HPI Allergic/Immunologic: Allergic/Immunologic: Reports no additional allergic/immunologic complaints and Reports as per HPI PMFSH Past Medical History Medical History Depression Diabetes mellitus Hypertension initial test 2014, declined CPAP Mixed hyperlipidemia Obstructive sleep apnea (~07/2021) Orthostatic hypotension Testicular cancer Tremor Surgical History Surgical History History of inguinal hernia repair Status post orchiectomy 1978
[2023-03-14] MEDS: fentaNYL CITRATE INJ (*CRX) 100 MCG/2 ML VIAL 50 MCG IV PUSH (11:12)
== END 2023-03-14 11:55 | disposition home or self-care (01) ==
PROVIDERS: Emergency Provider Internal Medicine Critical Care Medicine; PCP Family Medicine
DX: S63.272A Dislocation of unspecified interphalangeal joint of right middle finger, initial encounter (principal); S60.512A Abrasion of left hand, initial encounter; S50.812A Abrasion of left forearm, initial encounter; S80.212A Abrasion, left knee, initial encounter; I10 Essential (primary) hypertension; E11.9 Type 2 diabetes mellitus without complications; E78.2 Mixed hyperlipidemia; Z85.47 Personal history of malignant neoplasm of testis; W18.39XA Other fall on same level, initial encounter; Y92.009 Unspecified place in unspecified non-institutional (private) residence as the place of occurrence of the external cause
CPT/HCPCS: 26770; 70450; 71045; 72170; 73130; 96374; 99285; J3010

== ENCOUNTER 2023-04-03 14:05 | Emergency (ER) | payer MEDICARE, SELFPAY ==
[2023-04-03] VITALS (10 sets, daily range): BP systolic 68–129; BP diastolic 48–85; PULSE 89–137; RESP 18; TEMP 36.6; O2SAT 96–97
--- NOTE | 2023-04-03 14:09 | ED.WEAKNESS ---
HPI - Weakness General Chief complaint: Unspecified Stated complaint: low bp Time Seen by Provider: 04/03/23 14:07 History of Present Illness HPI Narrative: Pt sent over from PT. Pt going to PT for unsteady gait. Pt apparently stumbled a couple of times. PT did orthostatics and SBP when standing dropped to 70's. Called PCP and asked him to be seen in ER. Pt denies fever or CP. Pt denies vomiting or diarrhea. Related Data Home Medications Medication Instructions Recorded Confirmed atorvastatin 20 mg tablet 20 mg PO DAILY 06/19/22 03/15/23 bupropion HCl 300 mg 24 hr tablet, 300 mg PO QAM 06/19/22 03/15/23 extended release potassium chloride 10 mEq 10 meq PO BID 06/19/22 03/15/23 tablet,extended release tamsulosin 0.4 mg capsule 0.4 mg PO BID 06/19/22 03/15/23 venlafaxine 150 mg 150 mg PO DAILY 06/19/22 03/15/23 capsule,extended release 24 hr metformin 500 mg tablet 1,000 mg PO BID 01/24/23 03/15/23 carbidopa 25 mg-levodopa 100 mg 1 tablet PO DAILY 03/14/23 03/15/23 tablet quetiapine 25 mg tablet 25 mg PO HS 03/14/23 03/15/23 Allergies Allergy/AdvReac Type Severity Reaction Status Date / Time povidone-iodine Allergy Rash Verified 03/15/23 13:08 [From Betadine] Review of Systems Review of Systems: All systems reviewed & are unremarkable except as noted in HPI and below PMFSH Past Medical History Medical History Depression Diabetes mellitus Hypertension initial test 2014, declined CPAP Mixed hyperlipidemia Obstructive sleep apnea (~07/2021) Orthostatic hypotension Testicular cancer Tremor Surgical History Surgical History History of inguinal hernia repair Status post orchiectomy 1978 Family History Family History Father Diabetes mellitus Social History Social History Smoking status: Never smoker Second hand tobacco smoke exposure: Yes Alcohol intake: never Substance use: never Substance use type: does not use Lack of Transportation: No Lack of Food: Never True Current Housing: I Have Housing Concerned About Future Housing: No Difficulty Paying Gas/Electric Bills: No Difficulty Paying for Meds: No Currently Unemployed: No Education: Bachelor's Degree Difficulty w/ Childcare or Family Care: No Spiritual care concerns: No Exam Const: General: no acute distress Nutritional Appearance: well nourished Orientation/consciousness: patient oriented x3 Limitations: no limitations HENMT: Mouth: Yes dry mucous membranes Eyes: Conjunctivae: conjunctivae normal EOM: EOMs intact bilaterally Neck: Neck: normal visual inspection and no lymphadenopathy Resp: Effort & Inspection: normal respiratory effort Auscultation: clear to auscultation bilaterally Cardio: Rate: regular rate Rhythm: regular rhythm GI: GI Palp: Yes Soft to palpation Auscultation: normal bowel sounds Skin: General skin exam: normal color Rashes: no rashes Wounds: no wounds Neuro: General: patient oriented x3, moves all extremities and no focal motor deficits Speech: normal speech Extrem: General: normal to inspection and no clubbing, cyanosis or edema Psych: Mental Status: mental status grossly normal Affect: normal affect Attitude: cooperative Course Vital Signs Vital signs: Vital Signs Temperature 97.9 F 04/03/23 14:10 Pulse Rate 91 04/03/23 14:10 Respiratory Rate 18 04/03/23 14:10 Blood Pressure 107/78 04/03/23 14:10 Pulse Oximetry 96 04/03/23 14:10 Oxygen Delivery Room Air 04/03/23 14:10 Temperature 97.9 F 04/03/23 14:10 Pulse Rate 106 H 04/03/23 15:37 Respiratory Rate 18 04/03/23 14:10 Blood Pressure 81/62 L 04/03/23 15:37 Pulse Oximetry 96 04/03/23 14:10 Oxygen Delivery Room Air 04/03/23 1
--- NOTE | 2023-04-03 14:13 | ECG_ITS ---
Measurements Intervals [place] Rate: 89 P: 52 MO: 167 QRS: -15 QRSD: 85 T: 57 QT: 358 QTc: 436 Interpretive Statements SINUS RHYTHM DELAYED PRECORDIAL R/S TRANSITION BORDERLINE ECG COMPARED TO ECG 02/11/2023 13:56:59 NO SIGNIFICANT CHANGES Electronically Signed On 04-03-2023 20:10:28 CDT by Henry Santiago D.O.
[2023-04-03 14:23] LABS: Basophils Absolute Auto 0.03 K/mm3 (0.00-0.10); Basophils Percent Auto 0.4 % (0.0-1.0); Eosinophils Percent Auto 1.2 % (1.0-6.0); Hematocrit 45.1 % (37.0-46.0); Hemoglobin 14.3 g/dL (12.4-15.3); Immature Granulocyte Absolute 0.03 K/mm3 (0.00-0.00); Immature Granulocyte Percent A 0.4 % (0.0-0.0); Lymphocytes Absolute Auto 1.07 K/mm3 (1.10-4.50); Lymphocytes Percent Auto 12.6 % (18.0-42.0); Mean Corpuscular HGB Conc 31.7 g/dL (32.0-36.0); Mean Corpuscular Hemoglobin 29.2 pg (27.0-31.0); Mean Platelet Volume 10.9 fl (8.7-11.0); Monocytes Percent Auto 5.9 % (2.0-11.0); Neutrophils Absolute Auto 6.8 K/mm3 (1.7-7.2); Neutrophils Percent Auto 79.5 % (50.0-70.0); Platelet Count Result 197 K/mm3 (150-420); White Blood Count 8.5 K/mm3 (4.8-10.8)
[2023-04-03] MEDS: SODIUM CHLORIDE 0.9% IV 1,000 ML 999 ML IV CONT ×2 (14:34→15:45)
[2023-04-03 14:37] LABS: Alanine Aminotransferase 23 U/L (16-63); Albumin Level 3.7 g/dL (3.4-5.0); Alkaline Phosphatase 77 U/L (46-116); Anion Gap 11 mmol/L (8-16); Aspartate Amino Transferase 17 U/L (15-37); Bilirubin,Total 0.9 mg/dL (0.00-1.00); Blood Urea Nitrogen 26 mg/dL (7-18); Carbon Dioxide 25 mmol/L (21-32); Chloride 108 mmol/L (98-108); Estimated Glomerular Filt Rate 29; Glucose 159 mg/dL (70-99); Osmolality Calculated 305 mOsm/kg (285-295); Sodium 144 mmol/L (136-145); Total Protein 7.2 g/dL (6.4-8.2)
== END 2023-04-03 16:49 | disposition home or self-care (01) ==
PROVIDERS: Emergency Provider Emergency Medicine; PCP Family Medicine
DX: E86.0 Dehydration (principal); F32.A Depression, unspecified; E11.9 Type 2 diabetes mellitus without complications; I10 Essential (primary) hypertension; E78.2 Mixed hyperlipidemia
CPT/HCPCS: 36415; 80053; 85025; 93005; 96360; 96361; 99283; J7030

== ENCOUNTER 2023-04-07 09:41 | Outpatient (CLI) | payer MEDICARE, SELFPAY ==
[2023-04-07 10:12] LABS: Basophils Absolute Auto 0.04 K/mm3 (0.00-0.10); Basophils Percent Auto 0.5 % (0.0-1.0); Eosinophils Absolute Auto 0.17 K/mm3 (0.02-0.50); Eosinophils Percent Auto 2.2 % (1.0-6.0); Immature Granulocyte Absolute 0.02 K/mm3 (0.00-0.00); Immature Granulocyte Percent A 0.3 % (0.0-0.0); Lymphocytes Absolute Auto 1.62 K/mm3 (1.10-4.50); Lymphocytes Percent Auto 20.7 % (18.0-42.0); Mean Corpuscular HGB Conc 31.8 g/dL (32.0-36.0); Mean Corpuscular Hemoglobin 29.3 pg (27.0-31.0); Mean Corpuscular Volume 92.1 fL (78.0-102.0); Mean Platelet Volume 11.4 fl (8.7-11.0); Monocytes Absolute Auto 0.53 K/mm3 (0.10-0.90); Monocytes Percent Auto 6.8 % (2.0-11.0); Neutrophils Absolute Auto 5.4 K/mm3 (1.7-7.2); Neutrophils Percent Auto 69.5 % (50.0-70.0); Platelet Count Result 193 K/mm3 (150-420); Red Blood Count 4.78 M/mm3 (4.70-6.10); Red Cell Distribution Width 12.9 % (11.6-14.4); White Blood Count 7.8 K/mm3 (4.8-10.8)
[2023-04-07 10:21] LABS: Hemoglobin A1C 6.5 % (<5.7)
[2023-04-07 10:52] LABS: Alanine Aminotransferase 26 U/L (16-63); Albumin Level 3.6 g/dL (3.4-5.0); Alkaline Phosphatase 80 U/L (46-116); Anion Gap 7 mmol/L (8-16); Aspartate Amino Transferase 14 U/L (15-37); Bilirubin,Total 0.7 mg/dL (0.00-1.00); Blood Urea Nitrogen 20 mg/dL (7-18); Calcium 9.1 mg/dL (8.5-10.1); Carbon Dioxide 31 mmol/L (21-32); Chloride 105 mmol/L (98-108); Estimated Glomerular Filt Rate 47; Glucose 140 mg/dL (70-99); Osmolality Calculated 300 mOsm/kg (285-295); Potassium 4.9 mmol/L (3.5-5.1); Sodium 143 mmol/L (136-145); Total Protein 6.9 g/dL (6.4-8.2)
[2023-04-07 14:26] LABS: Appearance Urine Clear (Clear); Bilirubin Urine Negative (Negative); Blood Urine Negative (Negative); Color Urine Light Yellow (Yellow); Glucose Urine UA Negative (Negative); Ketones Urine Negative (Negative); Leukocyte Esterase Ur Negative (Negative); Nitrate Urine Negative (Negative); Protein Urine Negative (Negative); Urobilinogen Urine 0.2 mg/dL (0.2-1.0)
[2023-04-07 14:29] LABS: Add Urine Microscopic? NO
[2023-04-07 14:31] LABS: Creatinine Urine 72.76 mg/dL (40-278); MALB Creatinine Ratio 36.6 mg/g (0-30); Microalbumin Urine Random 26.7 mg/L
== END 2023-04-07 09:42 | disposition home or self-care (01) ==
LOC: CHSLAB 09:43
PROVIDERS: PCP Family Medicine; Visit Provider Family Medicine
DX: E11.9 Type 2 diabetes mellitus without complications (principal)
CPT/HCPCS: 36415; 80053; 81003; 82043; 83036; 85025

== ENCOUNTER 2023-04-27 13:24 | Outpatient (CLI) | payer MEDICARE, SELFPAY ==
--- NOTE | ~2023-04-27 | XR_ITS ---
EXAMINATION: XR hand LT min 3V, XR wrist LT min 3V DATE: 04/27/2023 13:48 INDICATION: Left hand and wrist pain and swelling with recent dislocation of the third digit TECHNIQUE: 1. Posteroanterior, ulnar deviation, oblique, and lateral views of the left wrist were obtained. 2. Dorsal palmar, oblique and lateral views of the left hand were obtained. COMPARISON: None. FINDINGS: 2 mm ulnar positive variance. There is persistent flexion of the left fifth digit which may be positi onal. Alignment of the hand and wrist is otherwise normal. No fracture identified. Mild osteoarthrit is at the wrist, triscaphe, first carpometacarpal and a few distal interphalangeal joints. No erosion s. Soft tissue swelling about the third proximal interphalangeal joint which may relate to the report ed recent dislocation. There is additional soft tissue swelling about the wrists most prominent overl consuelo the extensor carpi ulnaris groove at the ulnar side of the wrist. IMPRESSION: 1. Mild polyarticular osteoarthritis at the left hand and wrist. No acute osseous abnormality. Reviewed, dictated and finalized at location A. IMPRESSION: 1. Mild polyarticular osteoarthritis at the left hand and wrist. No acute osseo us abnormality.
== END 2023-04-27 13:25 | disposition home or self-care (01) ==
LOC: CHSIMG 13:26
PROVIDERS: PCP Family Medicine; Visit Provider Family Medicine
DX: M79.642 Pain in left hand (principal); M19.032 Primary osteoarthritis, left wrist; M19.042 Primary osteoarthritis, left hand
CPT/HCPCS: 73110; 73130

== ENCOUNTER 2023-05-03 10:38 | Outpatient (CLI) | payer MEDICARE, SELFPAY ==
--- NOTE | ~2023-05-03 | MR_ITS ---
EXAMINATION: MR brain/brain stem wo con DATE: 05/03/2023 11:43 INDICATION: Left hand weakness. Stroke. TECHNIQUE: Magnetic resonance imaging (MRI) of the brain and brainstem was performed without intraven ous contrast. COMPARISON: Brain MRI 01/06/2023 FINDINGS: There is no intracranial hemorrhage, acute infarction, or abnormal intracranial mass lesion . There are scattered areas of nonspecific increased T2-weighted signal intensity in the cerebral whi te matter, destiny, and right cerebellar white matter. The ventricles are normal in size. There are like ly changes of ocular lens replacement surgeries. There is mild mucosal thickening in the paranasal si nuses. There is a mucous retention cyst in right maxillary sinus. The mastoid air cells are normal. IMPRESSION: 1. Stable mild nonspecific cerebral and cerebellar white matter disease and pontine disease, which sy sewell represents chronic small vessel ischemic disease. Reviewed, dictated and finalized at location A. IMPRESSION: 1. Stable mild nonspecific cerebral and cerebellar white matter disease and keaton brandon disease, which likely represents chronic small vessel ischemic disease.
== END 2023-05-03 10:39 | disposition home or self-care (01) ==
LOC: CHSIMG 10:39
PROVIDERS: PCP Family Medicine; Visit Provider Family Medicine
DX: I63.9 Cerebral infarction, unspecified (principal); R90.82 White matter disease, unspecified; G93.89 Other specified disorders of brain
CPT/HCPCS: 70551

== ENCOUNTER 2023-07-16 08:35 | Outpatient (CLI) | payer MEDICARE, SELFPAY ==
[2023-07-16 09:37] LABS: Basophils Absolute Auto 0.04 K/mm3 (0.00-0.10); Basophils Percent Auto 0.6 % (0.0-1.0); Eosinophils Absolute Auto 0.16 K/mm3 (0.02-0.50); Eosinophils Percent Auto 2.3 % (1.0-6.0); Hematocrit 46.5 % (37.0-46.0); Hemoglobin 14.6 g/dL (12.4-15.3); Immature Granulocyte Absolute 0.03 K/mm3 (0.00-0.00); Immature Granulocyte Percent A 0.4 % (0.0-0.0); Lymphocytes Absolute Auto 1.32 K/mm3 (1.10-4.50); Lymphocytes Percent Auto 19.4 % (18.0-42.0); Mean Corpuscular HGB Conc 31.4 g/dL (32.0-36.0); Mean Corpuscular Hemoglobin 29.1 pg (27.0-31.0); Mean Corpuscular Volume 92.6 fL (78.0-102.0); Mean Platelet Volume 10.7 fl (8.7-11.0); Monocytes Percent Auto 5.9 % (2.0-11.0); Neutrophils Absolute Auto 4.9 K/mm3 (1.7-7.2); Neutrophils Percent Auto 71.4 % (50.0-70.0); Platelet Count Result 175 K/mm3 (150-420); Red Blood Count 5.02 M/mm3 (4.70-6.10); Red Cell Distribution Width 12.8 % (11.6-14.4); White Blood Count 6.8 K/mm3 (4.8-10.8)
[2023-07-16 09:49] LABS: Hemoglobin A1C 6.6 % (<5.7)
[2023-07-16 10:42] LABS: Alanine Aminotransferase 38 U/L (16-63); Albumin Level 3.5 g/dL (3.4-5.0); Alkaline Phosphatase 72 U/L (46-116); Anion Gap 8 mmol/L (8-16); Aspartate Amino Transferase 14 U/L (15-37); Bilirubin,Total 0.6 mg/dL (0.00-1.00); Blood Urea Nitrogen 19 mg/dL (7-18); Calcium 8.9 mg/dL (8.5-10.1); Carbon Dioxide 31 mmol/L (21-32); Chloride 104 mmol/L (98-108); Estimated Glomerular Filt Rate 47; Glucose 168 mg/dL (70-99); Osmolality Calculated 302 mOsm/kg (285-295); Potassium 4.9 mmol/L (3.5-5.1); Prostate Specific Antigen 1.3 ng/mL (< OR = 4.0); Sodium 143 mmol/L (136-145); Total Protein 6.8 g/dL (6.4-8.2)
[2023-07-16 13:10] LABS: Appearance Urine Clear (Clear); Bilirubin Urine Negative (Negative); Blood Urine Negative (Negative); Color Urine Light Yellow (Yellow); Glucose Urine UA Negative (Negative); Ketones Urine Negative (Negative); Leukocyte Esterase Ur 2+ (Negative); Nitrate Urine Negative (Negative); Protein Urine Negative (Negative); Urobilinogen Urine 0.2 mg/dL (0.2-1.0); pH Urine 7.5 (5.0-8.0)
[2023-07-16 13:15] LABS: Add Urine Microscopic? YES; RBC Urine None seen /hpf (0-2); WBC Urine 0-5 /hpf (0-3)
[2023-07-16 13:16] LABS: Bacteria Urine Trace /hpf
[2023-07-16 13:17] LABS: Creatinine Urine 69.26 mg/dL (40-278)
== END 2023-07-16 08:36 | disposition home or self-care (01) ==
PROVIDERS: PCP Family Medicine; Visit Provider Family Medicine
DX: I10 Essential (primary) hypertension (principal); E11.9 Type 2 diabetes mellitus without complications; Z12.5 Encounter for screening for malignant neoplasm of prostate
CPT/HCPCS: 36415; 80053; 81001; 82043; 83036; 84153; 85025; G0103

== ENCOUNTER 2023-09-15 09:52 | Emergency (ER) | payer MEDICARE, SELFPAY ==
[2023-09-15 09:52] VITALS: BP 130/89; PULSE 99; RESP 16; TEMP 36.9; O2SAT 96
--- NOTE | 2023-09-15 10:24 | ED.FALL ---
HPI - Fall General Chief Complaint: Fall Stated Complaint: ambulance Time Seen by Provider: 09/15/23 10:23 Source: patient and EMS Mode of arrival: EMS Limitations: no limitations History of Present Illness HPI Narrative: this is a 68-year-old male that has a history of Parkinson's disease and chronic alcohol abuse that had a fall earlier today while he was taking out trash, slipped on a patch of ice and snow and was brought to the ER for further evaluation. Patient denies any symptoms no loss of consciousness no head injury no other injuries noted has no complaints there is no fever chills no shortness of breath. complaint: fall Onset (ago): hour(s) Fall from: standing Fall witnessed: no Place fall occurred: street Loss of consciousness: none Prolonged down time: no Symptoms prior to fall: none Context: tripped/slipped Related Data Home Medications Medication Instructions Recorded Confirmed atorvastatin 20 mg tablet 20 mg PO DAILY 06/19/22 03/15/23 bupropion HCl 300 mg 24 hr tablet, 300 mg PO QAM 06/19/22 03/15/23 extended release potassium chloride 10 mEq 10 meq PO BID 06/19/22 03/15/23 tablet,extended release tamsulosin 0.4 mg capsule 0.4 mg PO BID 06/19/22 03/15/23 venlafaxine 150 mg 150 mg PO DAILY 06/19/22 03/15/23 capsule,extended release 24 hr metformin 500 mg tablet 1,000 mg PO BID 01/24/23 03/15/23 carbidopa 25 mg-levodopa 100 mg 1 tablet PO DAILY 03/14/23 03/15/23 tablet quetiapine 25 mg tablet 25 mg PO HS 03/14/23 03/15/23 Allergies Allergy/AdvReac Type Severity Reaction Status Date / Time povidone-iodine Allergy Rash Verified 09/15/23 10:02 [From Betadine] Review of Systems Review of Systems: All systems reviewed & are unremarkable except as noted in HPI and below PMFSH Past Medical History Medical History Depression Diabetes mellitus Hypertension initial test 2014, declined CPAP Mixed hyperlipidemia Obstructive sleep apnea (~07/2021) Orthostatic hypotension Testicular cancer Tremor Surgical History Surgical History History of inguinal hernia repair Status post orchiectomy 1978 Family History Family History Father Diabetes mellitus Social History Social History Smoking status: Never smoker Second hand tobacco smoke exposure: Yes Alcohol intake: never Substance use: never Substance use type: does not use Lack of Transportation: No Lack of Food: Never True Current Housing: I Have Housing Concerned About Future Housing: No Difficulty Paying Gas/Electric Bills: No Difficulty Paying for Meds: No Currently Unemployed: No Education: Bachelor's Degree Difficulty w/ Childcare or Family Care: No Spiritual care concerns: No Exam Const: General: healthy appearing, no acute distress and alert Eyes: Conjunctivae: conjunctivae normal Pupils: Equal, round and reactive pupils present EOM: EOMs intact bilaterally Direct Ophthalmoscopy: no photophobia Neck: Neck: normal visual inspection, no lymphadenopathy and no meningeal signs Chest: Chest palpation & inspection: normal inspection of the chest Resp: Effort & Inspection: normal respiratory effort Auscultation: clear to auscultation bilaterally Cardio: Rate: regular rate Rhythm: regular rhythm GI: GI Palp: Yes Soft to palpation Auscultation: normal bowel sounds Back/Spine/Pelvis: Back: no CVA tenderness Skin: General skin exam: normal color Rashes: no rashes Wounds: no wounds Neuro: General: patient oriented x3, moves all extremities, no meningeal signs and no focal motor deficits Extrem: General: normal to inspection, no clubbing, cyanosis or edema and no pedal edema Psych: Mental Status: mental status grossly normal Course Course Emergency Cou
--- NOTE | 2023-09-15 10:33 | PC.NURSE ---
Patient's mother called for ride, states she will try and get a neighbor to come get him due to weather. She states patient can wait for her in the waiting room until ride is established.
[2023-09-15 10:40] VITALS: BP 126/88; PULSE 98; RESP 17; TEMP 36.9; O2SAT 100
== END 2023-09-15 10:40 | disposition home or self-care (01) ==
PROVIDERS: Emergency Provider Emergency Medicine; PCP Family Medicine
DX: Z04.3 Encounter for examination and observation following other accident (principal); E11.9 Type 2 diabetes mellitus without complications; I10 Essential (primary) hypertension; E78.2 Mixed hyperlipidemia; G20.A1 Parkinson's disease without dyskinesia, without mention of fluctuations; Z85.47 Personal history of malignant neoplasm of testis; W01.0XXA Fall on same level from slipping, tripping and stumbling without subsequent striking against object, initial encounter; Y92.410 Unspecified street and highway as the place of occurrence of the external cause
CPT/HCPCS: 99281

== ENCOUNTER 2023-09-30 13:33 | Emergency (ER) | payer MEDICARE, SELFPAY ==
--- NOTE | ~2023-09-30 | CT_ITS ---
EXAMINATION: CT brain wo con DATE: 09/30/2023 15:54 INDICATION: hx multiple falls/weakness recently . TECHNIQUE: Computed tomography (CT) of the head was performed without intravenous contrast. The mA wa s adjusted according to patient size. Iterative reconstruction technique was employed. The dose-lengt h product was 681.00 mGy-cm. COMPARISON: 03/29/2023. FINDINGS: No acute intracranial hemorrhage or extra-axial fluid collection. No hydrocephalus, mass, or herniation. No acute ischemic infarct. Unremarkable dural venous sinus attenuation. No acute osseous abnormality. Small air-fluid level in the right maxillary sinus with aerated secretions, bilateral retention cysts or polyps in the maxillary sinuses and the posterior ethmoid air cell, mild ethmoid mucosal thickeni ng, the remaining aerated spaces are clear. Mild atrophy and chronic white matter change. Atherosclerotic intracranial calcification. Bilateral l ens replacements. IMPRESSION: No acute intracranial process. Reviewed, dictated and finalized at location K. L CONTROL WORKER
--- NOTE | ~2023-09-30 | XR_ITS ---
EXAMINATION: XR chest 1V portable Exam Date/Time: 09/30/2023 14:29 CARD PUNCHER HISTORY: N/V THIS AFTERNOON/INCREASED WEAKNESS HX TESTICULARCANCER Comparison: 03/14/2023. RESULT: Lines, tubes, and devices: None. Lungs and pleura: Patchy and streaky subsegmental right basilar opacities. Right costophrenic angle blunting. Left basilar scar. Cardiomediastinal silhouette: Stable. Other: No acute osseous or upper abdominal finding. IMPRESSION: Right basilar atelectasis/consolidation. Possible small right pleural effusion. Reviewed, dictated and finalized at location K. PUNCHER
--- NOTE | ~2023-09-30 | CT_ITS ---
EXAMINATION: CT cervical spine wo con DATE: 09/30/2023 15:54 INDICATION: hx multiple falls/weakness recently TECHNIQUE: Computed tomography (CT) of the cervical spine was performed without intravenous contrast. Automated exposure control and iterative reconstruction technique were employed. The dose-length pro duct was 407.38 mGy-cm. COMPARISON: None. FINDINGS: Vertebral Body Alignment: Intact. Reversed lordosis, centered at C4. Craniocervical and atlantoaxial alignment: Mild degenerative change. Alignment intact. Osseous structures/fracture: No evidence of a lytic or blastic process in the visualized spine. No e vidence of acute fracture. Cervical soft tissues: The paraspinal soft tissues planes are maintained. Degenerative changes: Multilevel degenerative disc disease, moderate at C5-6. Severe right neural for aminal narrowing at C5-6. Multilevel mild facet arthropathy. No severe central canal narrowing. IMPRESSION: No acute fracture or traumatic malalignment in the cervical spine. Reviewed, dictated and finalized at location K. 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
[2023-09-30 13:35] VITALS: BP 112/71; PULSE 105; RESP 20; TEMP 36.7; O2SAT 94
--- NOTE | 2023-09-30 13:49 | ECG_ITS ---
Measurements Intervals [place] Rate: 104 P: 19 CT: 145 QRS: -24 QRSD: 94 T: 46 QT: 322 QTc: 425 Interpretive Statements SINUS TACHYCARDIA DELAYED PRECORDIAL R/S TRANSITION VOLTAGE CRITERIA FOR LVH BASELINE ARTIFACT- I, III, AVR, AVL, AVF, V1, V4-V6 ABNORMAL ECG COMPARED TO ECG 04/03/2023 14:26:08 SINUS TACHYCARDIA NOW PRESENT Electronically Signed On 09-30-2023 14:30:54 MARGARINE CHURN OPERATOR by Henry Santiago D.O.
[2023-09-30] MEDS: ONDANSETRON INJ 4 MG/2 ML VIAL IV PUSH (14:02)
[2023-09-30] MEDS: SODIUM CHLORIDE 0.9% IV 2,000 ML 999 ML IV CONT (14:02)
[2023-09-30 14:17] LABS: Basophils Absolute Auto 0.03 K/mm3 (0.00-0.10); Basophils Percent Auto 0.4 % (0.0-1.0); Eosinophils Absolute Auto 0.07 K/mm3 (0.02-0.50); Eosinophils Percent Auto 0.8 % (1.0-6.0); Hematocrit 40.9 % (37.0-46.0); Hemoglobin 13.1 g/dL (12.4-15.3); Immature Granulocyte Absolute 0.05 K/mm3 (0.00-0.00); Immature Granulocyte Percent A 0.6 % (0.0-0.0); Lymphocytes Absolute Auto 0.88 K/mm3 (1.10-4.50); Lymphocytes Percent Auto 10.3 % (18.0-42.0); Mean Corpuscular Hemoglobin 28.9 pg (27.0-31.0); Mean Corpuscular Volume 90.3 fL (78.0-102.0); Mean Platelet Volume 10.4 fl (8.7-11.0); Monocytes Absolute Auto 0.46 K/mm3 (0.10-0.90); Monocytes Percent Auto 5.4 % (2.0-11.0); Neutrophils Percent Auto 82.5 % (50.0-70.0); Platelet Count Result 170 K/mm3 (150-420); Red Blood Count 4.53 M/mm3 (4.70-6.10); Red Cell Distribution Width 13.2 % (11.6-14.4); White Blood Count 8.5 K/mm3 (4.8-10.8)
[2023-09-30 14:30] VITALS: BP 142/92; PULSE 105; RESP 20; O2SAT 96
[2023-09-30 14:34] LABS: Alanine Aminotransferase 11 U/L (16-63); Albumin Level 3.2 g/dL (3.4-5.0); Alkaline Phosphatase 73 U/L (46-116); Anion Gap 7 mmol/L (8-16); Aspartate Amino Transferase 16 U/L (15-37); Blood Urea Nitrogen 33 mg/dL (7-18); Calcium 8.2 mg/dL (8.5-10.1); Carbon Dioxide 26 mmol/L (21-32); Chloride 102 mmol/L (98-108); Estimated CRCL calculation 39 ml/min; Estimated Glomerular Filt Rate 32; Glucose 222 mg/dL (70-99); Lipase 43 U/L (16-77); Osmolality Calculated 294 mOsm/kg (285-295); Potassium 5.2 mmol/L (3.5-5.1); Sodium 135 mmol/L (136-145); Total Protein 6.7 g/dL (6.4-8.2)
[2023-09-30 14:41] LABS: Influenza A QL RT-PCR Negative (Negative); Influenza B QL RT-PCR Negative (Negative); RSV RNA, RT-PCR Negative (Negative); SARS-CoV-2 RNA PCR Negative (Negative)
[2023-09-30 15:05] VITALS: PULSE 92
[2023-09-30 15:05] LABS: Glucose Point of Care 203 mg/dl (65-105)
[2023-09-30 15:30] VITALS: BP 160/104; PULSE 91; RESP 20; O2SAT 96
[2023-09-30 16:14] VITALS: BP 148/106; PULSE 92; RESP 20; O2SAT 96
--- NOTE | 2023-09-30 16:45 | ED.GENADULT ---
HPI - General Adult General Chief complaint: Nausea/Vomiting/Diarrhea Stated complaint: NAUSEA VOMITING Time Seen by Provider: 09/30/23 13:48 History of Present Illness HPI narrative: patient is a poor historian. This is a 68-year-old male with a history of recurrent falls due to Parkinson's that presenting for recurrent falls. Patient says he has been falling more than usual the last day. He does not recall the specifics. He is unsure if he hit his head. He does not have any pain at this time. He notes he did have several episodes of vomiting yesterday. At this time he is denying fever chills chest pain difficulty breathing, abdominal pain head pain or neck pain. Related Data Home Medications Medication Instructions Recorded Confirmed atorvastatin 20 mg tablet 20 mg PO DAILY 06/19/22 03/15/23 bupropion HCl 300 mg 24 hr tablet, 300 mg PO QAM 06/19/22 03/15/23 extended release potassium chloride 10 mEq 10 meq PO BID 06/19/22 03/15/23 tablet,extended release tamsulosin 0.4 mg capsule 0.4 mg PO BID 06/19/22 03/15/23 venlafaxine 150 mg 150 mg PO DAILY 06/19/22 03/15/23 capsule,extended release 24 hr metformin 500 mg tablet 1,000 mg PO BID 01/24/23 03/15/23 carbidopa 25 mg-levodopa 100 mg 1 tablet PO DAILY 03/14/23 03/15/23 tablet quetiapine 25 mg tablet 25 mg PO HS 03/14/23 03/15/23 Allergies Allergy/AdvReac Type Severity Reaction Status Date / Time povidone-iodine Allergy Rash Verified 09/15/23 10:02 [From Betadine] [facility] Past Medical History Medical History Depression Diabetes mellitus Hypertension initial test 2014, declined CPAP Mixed hyperlipidemia Obstructive sleep apnea (~07/2021) Orthostatic hypotension Testicular cancer Tremor Surgical History Surgical History History of inguinal hernia repair Status post orchiectomy 1979 Family History Family History Father Diabetes mellitus Social History Social History Smoking status: Never smoker Second hand tobacco smoke exposure: Yes Alcohol intake: never Substance use: never Substance use type: does not use Lack of Transportation: No Lack of Food: Never True Current Housing: I Have Housing Concerned About Future Housing: No Difficulty Paying Gas/Electric Bills: No Difficulty Paying for Meds: No Currently Unemployed: No Education: Bachelor's Degree Difficulty w/ Childcare or Family Care: No Spiritual care concerns: No Exam Narrative: APPEARANCE: No apparent distress. Head: atraumatic. EYES: EOMI, NOSE: Atraumatic NECK: Trachea midline RESPIRATORY: No increased rate of breathing Clear to auscultation CARDIOVASCULAR: RRR, no peripheral edema ABDOMINAL: Non-distended, soft nontender MUSCULOSKELETAl: No obvious deformities NEURO: Alert. Cranial nerves 2-12 grossly intact. Sensation light touch, motor function cerebellar function intact for 4 extremities. Gait exam was normal. resting tremor SKIN:: Warm, dry. Normal color PSYCHIATRIC: Normal affect Course Vital Signs Vital signs: Vital Signs Temperature 98.1 F 09/30/23 13:35 Pulse Rate 105 H 09/30/23 13:35 Respiratory Rate 20 09/30/23 13:35 Blood Pressure 112/71 09/30/23 13:35 Pulse Oximetry 94 09/30/23 13:35 Oxygen Delivery Room Air 09/30/23 13:35 Temperature 98.1 F 09/30/23 13:35 Pulse Rate 92 09/30/23 16:14 Respiratory Rate 09/30/23 16:14 Blood Pressure 148/106 H 09/30/23 16:14 Pulse Oximetry 96 09/30/23 16:14 Oxygen Delivery Room Air 09/30/23 16:14 Medical Decision Making [facility] Narrative Medical decision making narrative: -Course: 68-year-old male presenting with unsteady gait nausea and vomiting yesterday. Patient's workup here showed acute kidney injury.
[2023-09-30 17:20] VITALS: BP 145/100; PULSE 90; RESP 20; TEMP 36.7; O2SAT 96
== END 2023-09-30 17:30 | disposition home or self-care (01) ==
PROVIDERS: Emergency Provider Emergency Medicine; PCP Family Medicine
DX: E86.0 Dehydration (principal); N17.9 Acute kidney failure, unspecified; R26.81 Unsteadiness on feet; G20.A1 Parkinson's disease without dyskinesia, without mention of fluctuations; I10 Essential (primary) hypertension; Z85.47 Personal history of malignant neoplasm of testis; E78.2 Mixed hyperlipidemia; E11.9 Type 2 diabetes mellitus without complications; W19.XXXA Unspecified fall, initial encounter; Z20.822 Contact with and (suspected) exposure to COVID-19
CPT/HCPCS: 36415; 70450; 71045; 72125; 80053; 82948; 83690; 85025; 87637; 93005; 96361; 96374; 99284; J2405; J7030

== ENCOUNTER 2024-01-15 11:13 | Outpatient (CLI) | payer MEDICARE, SELFPAY ==
[2024-01-15 12:27] LABS: Hemoglobin A1C 6.1 % (<5.7)
[2024-01-15 12:29] LABS: Alanine Aminotransferase 19 U/L (16-63); Albumin Level 3.7 g/dL (3.4-5.0); Alkaline Phosphatase 98 U/L (46-116); Anion Gap 8 mmol/L (4-12); Aspartate Amino Transferase 18 U/L (15-37); Bilirubin,Total 0.7 mg/dL (0.00-1.00); Blood Urea Nitrogen 19 mg/dL (7-18); Calcium 9.5 mg/dL (8.5-10.1); Carbon Dioxide 33 mmol/L (21-32); Chloride 104 mmol/L (98-108); Estimated Glomerular Filt Rate 56; Glucose 104 mg/dL (70-99); Osmolality Calculated 302 mOsm/kg (285-295); Potassium 3.6 mmol/L (3.5-5.1); Sodium 145 mmol/L (136-145); Thyroid Stimulating Hormone 2.71 uIU/mL (0.36-3.74); Total Protein 7.1 g/dL (6.4-8.2)
[2024-01-15 14:08] LABS: Creatinine Urine 102.45 mg/dL (40-278); MALB Creatinine Ratio 28.7 mg/g (0-30); Microalbumin Urine Random 29.5 mg/L
[2024-01-17 12:34] LABS: Appearance Urine Clear (Clear); Bilirubin Urine Negative (Negative); Blood Urine Trace-intact (Negative); Color Urine Light Yellow (Yellow); Glucose Urine UA Negative (Negative); Ketones Urine Negative (Negative); Leukocyte Esterase Ur Negative (Negative); Nitrate Urine Negative (Negative); Protein Urine Negative (Negative); Urobilinogen Urine 0.2 mg/dL (0.2-1.0); pH Urine 6.5 (5.0-8.0)
[2024-01-17 12:39] LABS: Add Urine Microscopic? YES; Bacteria Urine Trace /hpf; Calcium Oxalate Crystals Urine Present /hpf; RBC Urine 0-2 /hpf (0-2); Squamous Epithelial Cell Urine Rare /hpf (Few); WBC Urine None seen /hpf (0-3)
[2024-01-17 12:50] LABS: Basophils Absolute Auto 0.05 K/mm3 (0.00-0.10); Basophils Percent Auto 0.7 % (0.0-1.0); Eosinophils Absolute Auto 0.13 K/mm3 (0.02-0.50); Eosinophils Percent Auto 1.8 % (1.0-6.0); Hemoglobin 14.3 g/dL (12.4-15.3); Immature Granulocyte Absolute 0.01 K/mm3 (0.00-0.00); Immature Granulocyte Percent A 0.1 % (0.0-0.0); Lymphocytes Absolute Auto 1.62 K/mm3 (1.10-4.50); Mean Corpuscular HGB Conc 31.1 g/dL (32-36); Mean Corpuscular Volume 93.3 fL (78.0-102.0); Monocytes Absolute Auto 0.54 K/mm3 (0.10-0.90); Monocytes Percent Auto 7.7 % (2.0-11.0); Neutrophils Absolute Auto 4.69 K/mm3 (1.70-7.20); Neutrophils Percent Auto 66.7 % (50.0-70.0); Platelet Count Result 209 K/mm3 (150-420); Red Blood Count 4.93 M/mm3 (4.70-6.10); Red Cell Distribution Width 12.3 % (11.6-14.4)
== END 2024-01-15 11:14 | disposition home or self-care (01) ==
LOC: CHSLAB 11:19
PROVIDERS: PCP Family Medicine; Visit Provider Family Medicine
DX: I10 Essential (primary) hypertension (principal); E11.9 Type 2 diabetes mellitus without complications
CPT/HCPCS: 36415; 80053; 81001; 82043; 83036; 84443; 85025

== ENCOUNTER 2024-02-18 14:20 | Outpatient (CLI) | payer MEDICARE, SELFPAY ==
--- NOTE | ~2024-02-18 | XR_ITS ---
Left Hand Technique: PA, oblique, and lateral views were obtained. Clinical History: Pain Findings: No acute fracture or dislocation is seen. Osseous alignment is anatomic. Joint spaces are p reserved. Soft tissues are unremarkable. Impression: Unremarkable left hand. Reviewed, dictated and finalized at location M. Impression: Unremarkable left hand.
== END 2024-02-18 14:21 | disposition home or self-care (01) ==
LOC: CHSIMG 14:21
PROVIDERS: PCP Family Medicine; Visit Provider Family Medicine
DX: M79.642 Pain in left hand (principal)
CPT/HCPCS: 73130

== ENCOUNTER 2024-03-14 11:28 | Outpatient (CLI) | payer MEDICARE, SELFPAY ==
[2024-03-14 12:52] LABS: Anion Gap 6 mmol/L (4-12); Blood Urea Nitrogen 15 mg/dL (7-18); Calcium 9.1 mg/dL (8.5-10.1); Carbon Dioxide 32 mmol/L (21-32); Chloride 104 mmol/L (98-108); Estimated Glomerular Filt Rate 59; Glucose 161 mg/dL (70-99); Osmolality Calculated 297 mOsm/kg (285-295); Sodium 142 mmol/L (136-145)
== END 2024-03-14 11:29 | disposition home or self-care (01) ==
LOC: CHSLAB 11:29
PROVIDERS: PCP Family Medicine; Visit Provider Internal Medicine Cardiovascular Disease
DX: I10 Essential (primary) hypertension (principal)
CPT/HCPCS: 36415; 80048

== ENCOUNTER 2024-05-05 17:19 | Outpatient (CLI) | payer MEDICARE, SELFPAY ==
--- NOTE | ~2024-05-05 | XR_ITS ---
EXAMINATION: XR finger 1st LT min 2V DATE: 05/05/2024 17:37 INDICATION: Left thumb pain. Fall. TECHNIQUE: 4 views of left thumb were obtained. COMPARISON: Left hand radiograph 02/18/2024 FINDINGS: There is a comminuted fracture of first distal phalanx with involvement of the proximal art icular surface. There are multiple displaced fracture fragments including a fracture gap of 4 mm at t he articular surface. There is mild osteoarthritis of first carpometacarpal joint and first metacarpo phalangeal joint. IMPRESSION: 1. Comminuted intra-articular fracture of first distal phalanx. Reviewed, dictated and finalized at location A.
== END 2024-05-05 17:20 | disposition home or self-care (01) ==
PROVIDERS: PCP Family Medicine; Visit Provider Family Medicine
DX: S62.522A Displaced fracture of distal phalanx of left thumb, initial encounter for closed fracture (principal); M79.645 Pain in left finger(s)
CPT/HCPCS: 73140

== ENCOUNTER 2024-06-11 14:48 | Emergency (ER) | payer MEDICARE, SELFPAY ==
[2024-06-11] VITALS (17 sets, daily range): BP systolic 86–162; BP diastolic 66–113; PULSE 86–95; RESP 17–20; TEMP 36.6; O2SAT 93–99
--- NOTE | ~2024-06-11 | CT_ITS ---
CT brain wo con Ordering provider: Jones Walters MD History: 69 years Male with . Dizziness,SOB,POOR HISTORIAN . Comparison: September 30, 2023 Technique: CT of the head without contrast. Radiation reduction technique utilized.The dose-length product was 605.33 mGy-cm. FINDINGS: BRAIN PARENCHYMA AND CSF SPACES: No midline shift, mass effect or hemorrhage. The brain parenchyma a nd CSF spaces are otherwise normal. VISUALIZED PARANASAL SINUSES: Well aerated. MASTOIDS: Well aerated. BONES: The bones appear intact. SOFT TISSUES: Visualized nasopharynx is normal. Superficial soft tissues are normal. IMPRESSION: No acute intracranial findings. Reviewed, dictated and finalized at location A.
--- NOTE | ~2024-06-11 | XR_ITS ---
EXAMINATION: XR chest 1V portable DATE: 06/11/2024 15:40 INDICATION: Shortness of breath. TECHNIQUE: A single frontal view of the chest was obtained. COMPARISON: Chest single view 09/30/2023 FINDINGS: There is mild atelectasis at the lung bases. No pleural effusion or pneumothorax. The heart size is normal. IMPRESSION: 1. Mild atelectasis at the lung bases. Reviewed, dictated and finalized at location A.
--- NOTE | 2024-06-11 14:56 | ED.DIZZY ---
HPI - Dizziness General Chief Complaint: Dizziness Stated Complaint: dizziness Source: patient Mode of arrival: ambulatory Limitations: no limitations History of Present Illness HPI Narrative: 69-year-old male a history of hypertension, diabetes mellitus, parkinsonism, orthostatic hypotension on fludrocortisone, recurrent falls,BPH on Flomax went to his primary care physician for -- recurrent falls. He last fell 2-3 weeks ago and developed left thumb pain. He had an x-ray at his doctor's office. -- Dizziness which is predominantly orthostatic. He has had prior episodes of orthostatic hypotension and has been on fludrocortisone. Today he felt extremely lightheaded on standing up from a sitting position. He feels lightheaded and dizzy. No vertigo. No new focal neuro deficit. he has been drinking decreased amount of fluids. No fever or chills no chest pain or shortness of breath blood sugar is noted to be 133 MD elicited complaint: dizziness and lightheadedness Pertinent past history: syncope Onset (ago): day(s) Timing: intermittent and episodic Severity: moderate Description: lightheadedness Context: change in body position History of similar symptoms: Yes Exacerbating factors: change in body position Relieving factors: nothing Associated symptoms: denies other symptoms Stroke scale total: 0 Related Data Home Medications Medication Instructions Recorded Confirmed bupropion HCl 300 mg 24 hr tablet, 300 mg PO QAM 06/19/22 06/11/24 extended release tamsulosin 0.4 mg capsule 0.4 mg PO BID 06/19/22 06/11/24 venlafaxine 150 mg 75 mg PO DAILY 06/19/22 06/11/24 capsule,extended release 24 hr metformin 500 mg tablet 500 mg PO BID 01/24/23 06/11/24 carbidopa 25 mg-levodopa 100 mg 1 tablet PO DAILY 03/14/23 06/11/24 tablet quetiapine 25 mg tablet 25 mg PO HS 03/14/23 06/11/24 carvedilol 6.25 mg tablet 6.25 mg PO BID 04/17/24 06/11/24 atorvastatin 20 mg tablet 20 mg PO DAILY 06/11/24 06/11/24 droxidopa 200 mg capsule 200 mg PO TID 06/11/24 06/11/24 fludrocortisone 0.1 mg tablet 0.1 mg PO BID 06/11/24 06/11/24 Allergies Allergy/AdvReac Type Severity Reaction Status Date / Time povidone-iodine Allergy Rash Verified 06/11/24 15:02 [From Betadine] Review of Systems Review of Systems: All systems reviewed & are unremarkable except as noted in HPI and below Constitutional: Constitutional: Reports as per HPI and Reports no additional constitutional complaints Eyes: Eyes: Reports as per HPI and Reports no additional eye complaints ENT: Reports system reviewed and no additional complaints, except as documented and Reports as per HPI Cardiovascular: Cardiovascular: Reports as per HPI and Reports no additional cardiovascular complaints Comments: Feels lightheaded on standing Respiratory: Respiratory: Reports as per HPI and Reports no additional respiratory complaints Gastrointestinal: Gastrointestinal: Reports as per HPI and Reports no additional gastrointestinal complaints Genitourinary: Genitourinary: Reports no additional male genitourinary complaints Musculoskeletal: Comments: left thumb pain from a fall 2-3 weeks ago Integumentary/Breasts: Skin/Breast: Reports system reviewed and no additional complaints, except as docu and Reports as per HPI Neurologic: Reports system reviewed and no additional complaints, except as documented, Reports as per HPI and Reports dizziness Psychiatric: Psychiatric: Reports no additional psychiatric complaints, Reports as per HPI and Reports anxiety Endocrine: Endocrine: Reports no additional endocrine complaints and Reports as per HPI Hematologic/Lymphatic: Hematologic/Lymphatic: Reports no additional hematologic/lymphatic complaints and Reports as per HPI Allergic/Immunologic: Allergic/Immunologic: Reports no additional allergic/immunologic complaints and Reports as per HPI [facility] Past Medical History Medical History (Reviewed 06/11/24 @ 15:23 by Jones
--- NOTE | 2024-06-11 15:08 | ECG_ITS ---
Test Date: 2024-06-11 15:27:34 Measurements Intervals [place] Rate: 82 P: 34 [place]: 193 QRS: -22 QRSD: 100 T: 70 QT: 383 QTc: 450 Interpretive Statements SINUS RHYTHM BORDERLINE LEFT AXIS DEVIATION [QRS AXIS < -20] NONSPECIFIC T-WAVE ABNORMALITY BORDERLINE ECG No previous ECG available for comparison Electronically Signed On 06-16-2024 07:29:50 CDT by Brian Lugo M.D.
[2024-06-11] MEDS: LACTATED RINGERS 500 ML 999 ML IV CONT ×2 (15:22→16:22)
[2024-06-11 15:24] LABS: Basophils Absolute Auto 0.03 K/mm3 (0.00-0.10); Basophils Percent Auto 0.4 % (0.0-1.0); Eosinophils Absolute Auto 0.09 K/mm3 (0.02-0.50); Eosinophils Percent Auto 1.1 % (1.0-6.0); Hematocrit 44.6 % (37.0-46.0); Hemoglobin 14.8 g/dL (12.4-15.3); Immature Granulocyte Absolute 0.02 K/mm3 (0.00-0.00); Immature Granulocyte Percent A 0.2 % (0.0-0.0); Lymphocytes Absolute Auto 1.72 K/mm3 (1.10-4.50); Lymphocytes Percent Auto 20.7 % (18.0-42.0); Mean Corpuscular HGB Conc 33.2 g/dL (32-36); Mean Corpuscular Hemoglobin 29.6 pg (27.0-31.0); Mean Corpuscular Volume 89.2 fL (78.0-102.0); Monocytes Absolute Auto 0.58 K/mm3 (0.10-0.90); Neutrophils Absolute Auto 5.87 K/mm3 (1.70-7.20); Neutrophils Percent Auto 70.6 % (50.0-70.0); Platelet Count Result 185 K/mm3 (150-420); Red Cell Distribution Width 12.7 % (11.6-14.4); White Blood Count 8.3 K/mm3 (4.8-10.8)
[2024-06-11 15:27] LABS: Glucose Point of Care 133 mg/dl (65-105)
[2024-06-11 15:39] LABS: Partial Thromboplastin Time 26.2 Sec (23.9-30.70); Prothrombin Time 11.3 Seconds (9.50-12.1)
[2024-06-11 15:44] LABS: Lactic Acid Reflex 3.1 mmol/L (0.4-2.0)
[2024-06-11 15:46] LABS: Alanine Aminotransferase 20 U/L (16-63); Albumin Level 3.9 g/dL (3.4-5.0); Alkaline Phosphatase 84 U/L (46-116); Anion Gap 11 mmol/L (4-12); Aspartate Amino Transferase 15 U/L (15-37); Bilirubin,Total 1.3 mg/dL (0.00-1.00); Blood Urea Nitrogen 27 mg/dL (7-18); Calcium 9.2 mg/dL (8.5-10.1); Carbon Dioxide 27 mmol/L (21-32); Chloride 103 mmol/L (98-108); Estimated CRCL calculation 45 ml/min; Estimated Glomerular Filt Rate 42; Glucose 137 mg/dL (70-99); Lipase 38 U/L (16-77); Osmolality Calculated 299 mOsm/kg (285-295); Potassium 4.1 mmol/L (3.5-5.1); Sodium 141 mmol/L (136-145); Total Protein 7.5 g/dL (6.4-8.2); Troponin I 7.9 ng/L (0.00-60.4)
[2024-06-11 15:47] LABS: NT Pro B Type Natriuretic Pept 307 pg/mL (0-125)
[2024-06-11 17:44] LABS: Add Urine Microscopic? NO; Appearance Urine Clear (Clear); Bilirubin Urine Negative (Negative); Blood Urine Negative (Negative); Color Urine Yellow (Yellow); Glucose Urine UA Negative (Negative); Ketones Urine Negative (Negative); Leukocyte Esterase Ur Negative LEU/UL (Negative); Nitrate Urine Negative (Negative); Protein Urine Negative (Negative); Specific Grav Ur 1.025 (1.010-1.020); pH Urine 5.5 (5.0-8.0)
[2024-06-11 18:21] LABS: Reflex Lactic Acid Yes or No Add Lactic
== END 2024-06-11 18:23 | disposition home or self-care (01) ==
PROVIDERS: Emergency Provider Internal Medicine Critical Care Medicine; PCP Family Medicine
DX: I95.1 Orthostatic hypotension (principal); N17.9 Acute kidney failure, unspecified; I10 Essential (primary) hypertension; E11.9 Type 2 diabetes mellitus without complications; E78.2 Mixed hyperlipidemia; Z79.899 Other long term (current) drug therapy; Z79.84 Long term (current) use of oral hypoglycemic drugs
CPT/HCPCS: 36415; 70450; 71045; 80053; 81003; 82948; 83605; 83690; 83880; 84484; 85025; 85610; 85730; 93005; 96360; 99284; J7120

== ENCOUNTER 2024-06-12 08:41 | Outpatient (CLI) | payer MEDICARE, SELFPAY ==
--- NOTE | ~2024-06-12 | XR_ITS ---
PA, oblique, and lateral views of the left thumb CLINICAL HISTORY: Pain FINDINGS: There is a comminuted, minimally displaced fracture of the proximal aspect of the distal ph alanx of the thumb. Possible intra-articular extension at the interphalangeal joint. No other fractur e or dislocation seen. No significant degenerative change. Soft tissues are unremarkable. IMPRESSION: Comminuted, possible intra-articular fracture at the proximal portion of the distal phalanx of the th umb. Reviewed, dictated and finalized at location M. IMPRESSION: Comminuted, possible intra-articular fracture at the proximal portion of the di stal phalanx of the thumb.
--- NOTE | ~2024-06-12 | XR_ITS ---
Left Hand Technique: PA, oblique, and lateral views were obtained. Clinical History: Pain Findings: Comminuted fractured the proximal aspect of the distal phalanx of the thumb is noted with p ossible intra-articular extension. Fracture fragments are mildly displaced.. Joint spaces are preserv ed. Soft tissues are unremarkable. Impression: Comminuted, mildly displaced, possible intra-articular fracture of the distal phalanx of the thumb, a s detailed above. Reviewed, dictated and finalized at location M. Impression: Comminuted, mildly displaced, possible intra-articular fracture of the distal p halanx of the thumb, as detailed above.
== END 2024-06-12 08:42 | disposition home or self-care (01) ==
LOC: CHSIMG 08:44
PROVIDERS: PCP Family Medicine; Visit Provider Family Medicine
DX: S62.522A Displaced fracture of distal phalanx of left thumb, initial encounter for closed fracture (principal); M79.645 Pain in left finger(s)
CPT/HCPCS: 73130; 73140

== ENCOUNTER 2024-10-08 15:12 | Outpatient (CLI) | payer MEDICARE, SELFPAY ==
--- NOTE | ~2024-10-08 | XR_ITS ---
EXAM: XR thoracic spine 3V DATE: 10/08/2024 15:38 HISTORY: DORSALGIA . COMPARISON: CT cervical spine 09/30/2023. FINDINGS: Vertebral body alignment intact. Exaggerated thoracic kyphosis. Vertebral body heights pre served. Moderate multilevel disc space narrowing and osteophytosis. The cervicothoracic junction is p oorly visualized in the lateral view. No traumatic malalignment or fracture. Visualized lung parenchy ma is clear. Surgical clips over the upper abdomen. IMPRESSION: Moderate multilevel thoracic degenerative disc disease. Reviewed, dictated and finalized at location K. P MAKER
--- NOTE | ~2024-10-08 | XR_ITS ---
EXAMINATION: XR lumbar spine 2-3V DATE: 10/08/2024 15:38 INDICATION: Dorsalgia. TECHNIQUE: 3 views of lumbar spine were obtained. COMPARISON: Lumbar spine radiographs 05/02/2022 FINDINGS: There is 10 degrees levoscoliosis of thoracolumbar spine. There are chronic bilateral L5 pa rs defects. There is 9 mm anterolisthesis of L5 on S1. There is mild chronic height loss of L5 verteb ral body posteriorly. There is mild chronic anterior wedging of T11 vertebral body. There is moderate ly decreased disc height at L1-L2, mildly decreased disc height at L2-L3, L3-L4, and L4-L5 and severe ly decreased disc height at L5-S1. There are surgical clips in the abdomen. IMPRESSION: 1. Chronic L5 pars defects with grade 2 anterolisthesis of L5 on S1. 2. Severe lower lumbar spondylosis. 3. Thoracolumbar dextrosclerosis. Reviewed, dictated and finalized at location [facility]. [facility]
--- OUTSIDE RECORDS SUMMARY | 2024-10-08 16:01 | XMS_ITS | Encounter Summary ---
Author Organization [facility] Address [address] [place] [address] Phone Care Team Providers Care Assembly Operator Name Role Phone Parker Wilder MD Primary Care Provider [phone] Jose Marrero MD Unavailable [phone] Encounter Details Date Type Department Care Team (Late st Contact Info) Description 10/18/2023 Lab Requisition [facility] [address] [place] [address] Jose Marrero MD [address] [place] [phone] Hyperkalemia Social History Tobacco Use Types Packs/Day Years Used Date Smoking Tobacco: Never Smokeless Tobacco: Never Alcohol Use Standard Drinks/Week Comments Never 0 (1 standard drink = 0.6 oz pur e alcohol) [facility] Utilities Answer Date Recorded In the past 12 months has [employer] electric, gas, oil, or water company threatened to shut off services in your home? No 10/11/2023 Social Connection and Isolat ion Panel [NHANES] Answer Date Recorded In a typical week, how many times do you talk on the phone with family, friends, or neighbors? More than three times a week 10/11/2023 How often do you get togethe r with friends or relatives? More than three times a week 10/11/2023 How often do you attend chur ch or sabianism services? Never 10/11/2023 Do you belong to any clubs o r organizations such as spiritism groups, unions, fraternal or athletic groups, or school groups? No 10/11/2023 How often do you attend meet ings of the clubs or organizations you belong to? Never 10/11/2023 Are you , , di vorced, , never , or living with a partner? 10/11/2023 AUDIT-C Answer Date Recorded Q1: How often do you have a drink containing alcohol? Never 10/11/2023 Q2: How many drinks containi ng alcohol do you have on a typical day when you are drinking? Patient does not drink Q3: How often do you have si x or more drinks on one occasion? Never 10/11/2023 Overall Financial Resource Strain (CARDIA) Answe r Date Recorded How hard is it for you to pa y for the very basics like food, housing, medical care, and heating? Not hard at all 10/11/2023 [facility] - Occupational Stress Questionnaire Answer Date Recorded Do you feel stress - tense, restless, nervous, or anxious, or unable to sleep at night because your mind is troubled all the time - these days? Not at all 10/11/2023 Exercise Vital Sign Answer Date Recorde d On average, how many days pe r week do you engage in moderate to strenuous exercise (like a brisk walk)? 0 days 10/11/2023 On average, how many minutes do you engage in exercise at this level? 0 min 10/11/2023 Hunger Vital Sign Answer Date Recorded Within the past 12 months, y ou worried that your food would run out before you got the money to buy more. Never true 10/11/19 24 Within the past 12 months, t he food you bought just didn't last and you didn't have money to get more. Never true 10/11/2023 PRAPARE - Transportation Answer Date Re corded In the past 12 months, has l ack of transportation kept you from medical appointments or from getting medications? No 09/2023 In the past 12 months, has l ack of transportation kept you from meetings, work, or from getting things needed for daily living? No 10/11/2023 Housing Stability Vital Sign Answer Ernesto e Recorded In the last 12 months, was t here a time when you were not able to pay the mortgage or rent on time? No 10/11/2023 In the last 12 months, how many places have you lived? 1 10/11/2023 In the last 12 months, was t here a time when you did not have a steady place to sleep or slept in a halfway (including now)? No 10/11/2023 Sexually Active Control Partners Comments Not Currently Female Sex and Gender Information Value Date Recorded Sex Assigned at Male 11/01/2023 2:21 PM COBOL PROGRAMMER Legal Sex Male 11:21 PM CDT Gender Identity Male 11/01/2023 2:21 PM COBOL PROGRAMMER Sexual Orientation Straight 11/01/2023 2: 21 PM COBOL PROGRAMMER documented as of this encounter Plan of Treatment Upcoming Encounters Date Type Department Care Team (Late st Contact Info) Description 11/11/2024 1:00 PM COBOL PROGRAMMER [facility] [address] [place] [address] Jose Marrero MD [address] [place] [address] documented as of this encounter Procedures Procedure Name Priority Date/Time Associated Diagnosis Comments CBC WITH AUTO DIFFERENTIAL Routine 10/17/2023 12:00 PM COBOL PROGRAMMER Hyperkalemia COMPLETE BLOOD COUNT (CBC) WITH DIFF Routine 10/17/2023 12:00 PM COBOL PROGRAMMER Hyperkalemia BASIC METABOLIC PANEL W/ CALCIUM TOTAL Routine 10/17/2023 12:00 PM COBOL PROGRAMMER Hyperkalemia documented in this encounter Results * (ABNORMAL) CBC WITH AUTO DIFFERENTIAL (10/17/2023 12:00 PM COBOL PROGRAMMER) WBC 7.64 4.00 - 12.00 10(3)/mcL 10/18/2023 1:14 PM COBOL PROGRAMMER [facility] RBC 4.79 4.40 - 5.80 10(6)/mcL 10/18/2023 1:14 PM [facility] HEMOGLOBIN (HGB) 14.2 13.0 - 16.5 g/dL 10/18/2023 1:14 PM [facility] HEMATOCRIT (HCT) 43.8 38.0 - 50.0 % 10/18/2023 1:14 PM [facility] MCV 91.4 82.0 - 96.0 fL 10/18/2023 1:14 PM [facility] MCH 29.6 26.0 - 32.0 pg 10/18/2023 1:14 PM [facility] MCHC 32.4 31.0 - 36.0 g/dL 10/18/2023 1:14 PM [facility] PLATELET COUNT 253 140 - 440 10(3)/mcL 10/18/2023 1:14 PM [facility] RDW 13.4 11.8 - 15.5 % 10/18/2023 1:14 PM [facility] MPV 11.3 8.0 - 12.6 fL 10/18/2023 1:14 PM [facility] NEUTROPHILS 76.4(H) 40.0 - 68.0 % 10/18/2023 1:14 PM [facility] LYMPHOCYTES 16.0(L) 19.0 - 49.0 % 10/18/2023 1:14 PM [facility] MONOCYTES 6.2 3.0 - 13.0 % 10/18/2023 1:14 PM [facility] EOSINOPHILS 0.9 0.0 - 8.0 % 10/18/2023 1:14 PM [facility] BASOPHILS 0.5 0.0 - 1.0 % 10/18/2023 1:14 PM [facility] ABSOLUTE NEUTROPHILS 5.84(H) 1.40 - 5.30 10(3)/mcL 10/18/2023 1:14 PM [facility] ABSOLUTE LYMPHOCYTES 1.22 0.90 - 3.30 10(3)/mcL 10/18/2023 1:14 PM COBOL PROGRAMMER [facility] ABSOLUTE MONOCYTES 0.47 0.10 - 0.90 10(3)/mcL 10/18/2023 1:14 PM COBOL PROGRAMMER [facility] ABSOLUTE EOSINOPHIL 0.07 0.00 - 0.50 10(3)/mcL 10/18/2023 1:14 PM COBOL PROGRAMMER [facility] ABSOLUTE BASOPHILS 0.04 0.00 - 0.10 10(3)/[facility] 10/18/2023 1:14 PM COBOL PROGRAMMER [facility] NRBC PER 100 WBC 0 10/18/19 24 1:14 PM [facility] Blood No Phlebotomy Charged / Unknown 10/17/2023 12:00 PM COBOL PROGRAMMER 10/18/2023 1:07 PM COBOL PROGRAMMER us Jose Marrero MD HEMATOLOGY ORDERABLES Final Result [facility] [address] [place] [address] * (ABNORMAL) BASIC METABOLIC PANEL W/ CALCIUM TOTAL (10/17/2023 12:00 PM COBOL PROGRAMMER) SODIUM 141 136 - 145 mmol/L 10/18/2023 1:30 PM [facility] POTASSIUM 4.6 3.5 - 5.1 mmol/L 10/18/2023 1:30 PM [facility] CHLORIDE 109(H) 98 - 107 mmol/L 10/18/2023 1:30 PM [facility] CO2, VENOUS 23 22 - 30 mmol/L 10/18/2023 1:30 PM [facility] ANION GAP 13.6 <18.0 mmol/L 10/18/2023 1:30 PM [facility] GLUCOSE 203(H) 70 - 99 mg/dL 10/18/2023 1:30 PM [facility] BUN 21 8 - 26 mg/dL 10/18/2023 1:30 PM COBOL PROGRAMMER [facility] CREATININE, BLOOD 1.45(H) 0.70 - 1.30 mg/dL 10/18/2023 1:30 PM COBOL PROGRAMMER [facility] BUN/CREATININE RATIO 14 12 - 20 ratio 10/18/2023 1:30 PM COBOL PROGRAMMER [facility] CALCIUM 9.1 8.7 - 10.5 mg/dL 10/18/2023 1:30 PM COBOL PROGRAMMER [facility] GFR, ESTIMATED 53(L) >=60 10/18/2023 1:30 PM COBOL PROGRAMMER [facility] Comment: Creatinine Clearance is the preferred criteria for selecting drug dose adjustments in renally impaired patients. ??The GFR is provided as additional pertinent clinical information. GFR is reported in mL/min/1.73 sq m. Calculation based on the Chronic Kidney Disease Epidemiology Collaboration (CKD- EPI) equation refit without adjustment for race. GFR, EST. 59(L) >=60 024 1:30 PM COBOL PROGRAMMER [facility] GFR, EST. NONAFRICAN 49(L) >=60 10/18/2023 1:30 PM COBOL PROGRAMMER [facility] Blood No Phlebotomy Charged / Unknown 10/17/2023 12:00 PM COBOL PROGRAMMER 10/18/2023 1:07 PM COBOL PROGRAMMER us Jose Marrero MD CHEMISTRY ORDERABLES Final R esult [facility] [address] [place] [address] documented in this encounter Visit Diagnoses Diagnosis Hyperkalemia Hyperpotassemia documented in this encounter Care Teams Assembly Operator Relationship Specialty Start Date End Date Parker Wilder MD [address] [place] [address] PCP - General Pediatrics 03/08/23 Jose Marrero MD [address] [place] [address] Consulting Physician Neurology 03/08/23 documented as of this encounter
--- OUTSIDE RECORDS SUMMARY | 2024-10-08 16:01 | XMS_ITS | Encounter Summary ---
Author Organization [facility] Address [address] [place] [address] Phone Care Team Providers Care Curator [employer] Name Role Phone Parker Wilder MD Primary Care Provider [phone] Jose Marrero MD Unavailable [phone] Reason for Visit * Reason Comments Medication Refill Encounter Details Date Type Department Care Team (Late st Contact Info) Description 02/28/2024 Refill [facility] - Neurology - [place] [address] [place] [address] Jose Marrero MD [address] [place] [address] Medication Refill Social History Tobacco Use Types Packs/Day Years Used Date Smoking Tobacco: Never Smokeless Tobacco: Never Alcohol Use Standard Drinks/Week Comments Never 0 (1 standard drink = 0.6 oz pur e alcohol) [facility] Utilities Answer Date Recorded In the past 12 months has [employer], gas, oil, or water company threatened [...] often do you attend chur ch or temple services? Never 10/11/2023 Do you belong to any clubs o r organizations such as hoahaoism groups, unions, fraternal or athletic groups, or [...] and heating? Not hard at all 10/11/2023 [facility] of Occupat ional Health - Occupational Stress [...] place to sleep or slept in a fpc (including now)? No 10/11/2023 Sexually Active Control Partners Comments Not Currently Female Sex and Gender Information Value Date Recorded Sex Assigned at Male 11/01/2023 2:21 PM DIRECTOR AUTOMOTIVE Legal Sex Male 11:21 PM CDT Gender Identity Male 11/01/2023 2:21 PM DIRECTOR AUTOMOTIVE Sexual Orientation Straight 11/01/2023 2: 21 PM DIRECTOR AUTOMOTIVE documented as of this encounter Miscellaneous Notes * Telephone Encounter - Shazia Linda RN - 02/29/2024 8:25 AM CDT Medication failed the protocol, provider to review and approve the medication order if appropriate. Requested Prescriptions Pending Prescriptions Disp Refills Droxidopa 100 MG Capsule [Pharmacy Med Name: DROXIDOPA 100 MG CAPSULE] 90 Capsule 3 Sig: TAKE ONE CAPSULE BY MOUTH THREE TIMES A DAY 7AM, 12PM AND 5 PM. #1110 Not Delegated - Off Protocol Failed - 02/28/2024 5:42 PM Failed - This refill cannot be delegated Passed - Visit with relevant provider in past 12 months or upcoming 90 days Recent Visits Date Type Provider Dept 11/02/23 Office Visit Jose Marrero MD [facility] Neurology [address] 06/12/23 Office Visit Jose Marrero MD [facility] Neurology [address] 03/08/23 Office Visit Jose Marrero MD [facility] Neurology [address] Showing recent visits within past 365 days and meeting all other requirements Future Appointments Date Type Provider Dept 05/05/24 Appointment Jose Marrero MD [facility] Neurology [address] Showing future appointments within next 90 days and meeting all other requirements documented in this encounter Plan of Treatment Upcoming Encounters Date Type Department Care Team (Late st Contact Info) Description 11/11/2024 1:00 PM DIRECTOR AUTOMOTIVE Office Visit [facility] - Neurology [facility] [address] [place] [address] Jose Marrero MD [address] [place] [address] documented as of this encounter Visit Diagnoses Not on filedocumented in this encounter Care Teams Curator [employer] History Museum Relationship Specialty Start Date End Date Parker Wilder MD [address] [place] [address] PCP - General Pediatrics 03/08/23 Jose Marrero MD [address] [place] [address] Consulting Physician Neurology 03/08/23 documented as of this encounter
--- OUTSIDE RECORDS SUMMARY | 2024-10-08 16:01 | XMS_ITS | Clinical Summary ---
Author Organization [facility] Address [address] [place] [address] Phone Care Team Providers Care Adjunct Writing Instructor Name Role Phone Parker Wilder MD Primary Care Provider [phone] Jose Marrero MD Unavailable [phone] Allergies Active Allergy Reactions Criticality Noted Date Comments Povidone Iodine Unknown 01/04/2023 Prochlorperazine Unknown 01/04/2023 Dust Mite Extract Unknown 01/04/2023 Molds & Smuts Unknown 01/04/2023 Medications venlafaxine (EFFEXOR-XR) 75 MG CAPSULE SR 24 HR Take 75 mg by mouth every evening. Active buPROPion (WELLBUTRIN) 300 MG TABLET SR 24 HR XL tablet Take 300 mg by mouth every morning. Active metFORMIN (GLUCOPHAGE) 500 MG Tablet Take 500 mg by mouth 2 times daily (with meals). Active atorvastatin (LIPITOR) 20 MG Tablet Take 20 mg by mouth daily. Active tamsulosin (FLOMAX) 0.4 MG Capsule Take 0.4 mg by mouth daily. Active fludrocortisone (FLORINEF) 0.1 MG Tablet Take 0.2 mg by mouth 2 times daily. Active QUEtiapine (SEROquel) 25 MG Tablet Take 25 mg by mouth 2 times daily. Active carvedilol (COREG) 3.125 MG Tablet Take 3.125 mg by mouth 2 times daily. Active ondansetron (ZOFRAN-ODT) 4 MG TABLET DISPERSIBLE Take 1 Tablet by mouth every 6 hours as needed for Nausea - 1st line. 10 Tablet 10/12/19 24 Active polyethylene glycol (GLYCOLAX, MIRALAX) 17 g PackIndications :Constipation Take 1 Packet by mouth 2 times daily as needed for Constipation - 1st line. Dissolve in 4-8 oz of liquid. Indications: Constipation 90 Packet 10/12/19 24 Active senna (SENOKOT) 8.6 MG Tablet Take 1 Tablet by mouth 2 times daily as needed for Constipation - 2nd line. 30 Tablet 10/12/19 24 Active glipiZIDE (GLUCOTROL XL) 2.5 MG TABLET SR 24 HR Take 1 Tablet by mouth daily. 90 Tablet 10/12/19 24 Active potassium chloride CR (KLORCON) 10 MEQ Tablet Controlled Release Take 1 Tablet by mouth daily. 90 Tablet 10/12/19 24 Active carbidopa-levod opa (SINEMET) 25-100 MG Tablet TAKE ONE TABLET BY MOUTH THREE TIMES A DAY HALF AN HOUR BEFORE EATING #1110 90 Tablet 6 05/21/20 24 Active Droxidopa 200 MG Capsule Take 200 mg by mouth 3 times daily. 270 Capsule 3 09/22/19 25 Active Droxidopa 200 MG Capsule TAKE ONE TABLET BY MOUTH THREE TIMES A DAY #1110 270 Capsule 3 07/14/20 24 025 Discontin ued(Reord er) Active Problems Problem Noted Date Diagnosed Date Morbid obesity 11/04/2023 Tremor 10/12/2023 Testicular cancer 10/12/2023 Sleep apnea 10/12/2023 Mixed hyperlipidemia 10/12/2023 Hypertension 10/12/2023 Head injury with loss of consciousness Dysthymic disorder 10/12/2023 DM type 2 (diabetes mellitus, type 2) 10/12/2023 Aortic aneurysm 10/12/2023 Acute kidney injury 10/12/2023 Gait disturbance 10/11/2023 Encounters Date Type Department Care Team Description 09/22/2024 [facility] [place] [address] [place] [id number] Jose Marrero MD Medication Refill 07/14/2024 Refill [facility] - Neurology - [place] [address] [place] [address] Jose Marrero MD Medication Refill from Last 3 Months Immunizations Immunization Administration Dates Next Due Influenza Vaccine, MDCK,quadrivalent, pres free 06/24/2021 Influenza, Quadrivalent, Adjuvanted 06/20/2023 Family History Medical History Relation Name Comments Diabetes Maternal Grandfather Diabetes Maternal Grandmother Hypertension Mother Relation Name Status Comments Maternal Grandfather Maternal Grandmother Mother Social History Tobacco Use Types Packs/Day Years Used Date Smoking Tobacco: Never Smokeless Tobacco: Never Tobacco Cessation:Counseling Given: Not Answered Alcohol Use Standard Drinks/Week Comments Never 0 (1 standard drink = 0.6 oz pur e alcohol) [facility] Utilities Answer Date Recorded In the past 12 months has e [employer], gas, oil, or water [employer] threatened to shut off services in your [...] often do you attend chur ch or tenriism services? Never 10/11/2023 Do you belong to any clubs o r organizations such as jew groups, unions, fraternal or athletic groups, or [...] and heating? Not hard at all 10/11/2023 [facility] of Occupat ional Health - Occupational Stress [...] place to sleep or slept in a alf (including now)? No 10/11/2023 Sexually Active Control Partners Comments Not Currently Female Sex and Gender Information Value Date Recorded Sex Assigned at Male 11/01/2023 2:21 PM CLINICAL PROGRAMMER Legal Sex Male 11:21 PM CDT Gender Identity Male 11/01/2023 2:21 PM CLINICAL PROGRAMMER Sexual Orientation Straight 11/01/2023 2: 21 PM CLINICAL PROGRAMMER Last Filed Vital Signs Vital Sign Reading Time Taken Comments Blood Pressure 162/114 05/16/2024 9:29 AM CDT Pulse 87 05/16/2024 9:29 AM CDT Temperature 36.5 ??C (97.7 ??F) 05/16/2024 9:29 AM CD T Respiratory Rate 16 05/16/2024 9:29 AM CDT Oxygen Saturation 97% 05/16/2024 9:29 AM CDT Inhaled Oxygen Concentration - - Weight 99.3 kg (218 lb 14.4 oz) 05/16/2024 9:29 AM CDT Height 177.8 cm (5' 10 ) 05/16/2024 9:29 AM CDT Body Mass Index 31.41 05/16/2024 9:29 AM CDT Plan of Treatment Upcoming Encounters Date Type Department Care Team (Late st Contact Info) Description 11/11/2024 1:00 PM CLINICAL PROGRAMMER Office Visit [facility] [address] [place] [id number] Jose Marrero MD [address] [place] [address] Health Maintenance Due Date Last Done Comments Diabetes: Eye Exam 1957 Diabetes: Foot Exam 1957 Hepatitis C Virus (HCV) Screening 1957 Zoster Immunization (1 of 2) 1976 Colonoscopy 2002 Colorectal Cancer Screening 2002 Cologuard 2007 Immunochemical Fecal Occult Blood 2007 PSA Discussion 2012 Pneumococcal Immunization (50+ years) (2 of 2 - PCV) 07/12/2021 07/12/2020 Diabetes: Hemoglobin A1c 04/10/2024 10/11/2023, 03/10 Influenza Immunization (#1) 05/11/202406/10, 05/16/2022, 06/24/2021, Additional history exists SARS-COV-2 Immunization ( season) 2024 08/13/2023, 07/13/2022, 07/07/2021, Additional history exists Diabetes: Nephropathy Screening 10/11/2024 10/11/2023 DTaP/Tdap/Td Immunization Discontinued 03/06/2011 TdaP Immunization Completed 03/06/2011 Respiratory Syncytial Virus (RSV) Immunization (Adult) Completed 08/23/2023 Hepatitis B Immunization Aged Out No longer eligible based on patient's age to complete this topic Meningococcal Immunization (ACWY) Aged Out No longer eligible based on patient's age to complete this topic Rotavirus Immunization Aged Out No lo nger eligible based on patient's age to complete this topic Procedures Procedure Name Priority Date/Time Associated Diagnosis Comments CMP (COMPREHENSIVE METABOLIC PANEL) STAT 10/11/2023 12:55 PM CLINICAL PROGRAMMER HEMOGLOBIN A1C W/ ESTIMATED GLUCOSE Routine 10/11/2023 12:55 PM CLINICAL PROGRAMMER from Last 3 Months or Most Recently Relevant to Health Maintenance Results * (ABNORMAL) Hemoglobin A1C (if indicated) (10/11/2023 12:55 PM CLINICAL PROGRAMMER) HGB-A1C 8.0(H) 4.0 - 6.0 % 10/12/2023 12:11 AM CLINICAL PROGRAMMER [facility] Est Average Glucose 182.9 mg/dL 10/12/2023 12:11 AM CLINICAL PROGRAMMER [facility] Blood Venipuncture / Unknown 10/11/2023 12:55 PM CLINICAL PROGRAMMER 10/11/2023 1:10 PM CLINICAL PROGRAMMER Narrative [facility] - 10/12/2023 12:11 AM CLINICAL PROGRAMMER HEMOGLOBIN A1C: DIABETIC PATIENTS: WELL-CONTROLLED: ?? 6.2 - 7.0 INTERMEDIATE WELL-CONTROLLED: ??7.0 - 9.0 POORLY-CONTROLLED: ??>9.0 us [place] TELETYPEWRITER INSTALLER, MEDICAL INSURANCE CODING SPECIALIST CHEMISTRY ORDERABLES Fi nal Result [facility] [address] [place] [address] * (ABNORMAL) CMP (Comprehensive Metabolic Panel) (10/11/2023 12:55 PM CLINICAL PROGRAMMER) SODIUM 136 136 - 145 mmol/L 10/11/2023 1:33 PM CLINICAL PROGRAMMER [facility] POTASSIUM 5.5(H) 3.5 - 5.1 mmol/L 10/11/2023 1:[address] [facility] CHLORIDE 108(H) 98 - 107 mmol/L 10/11/2023 1:[address] [facility] CO2, VENOUS 20(L) 22 - 30 mmol/L 10/11/2023 1:[address] [facility] ANION GAP 13.5 <18.0 mmol/L 10/11/2023 1:[address] [facility] GLUCOSE 297(H) 70 - 99 mg/dL 10/11/2023 1:[address] [facility] BUN 27(H) 8 - 26 mg/dL 10/11/2023 1:[address] [facility] CREATININE, BLOOD 1.70(H) 0.70 - 1.30 mg/dL 10/11/2023 1:[address] [facility] BUN/CREATININE RATIO 16 12 - 20 ratio 10/11/2023 1:[address] [facility] TOTAL PROTEIN 7.8 6.3 - 8.2 g/dL 10/11/2023 1:[address] [facility] ALBUMIN 4.3 3.5 - 5.0 g/dL 10/11/2023 1:[address] [facility] A/G RATIO 1.2 1.0 - 2.2 10/11/2023 1:[address] [facility] CALCIUM 9.6 8.7 - 10.5 mg/dL 10/11/2023 1:[address] [facility] T BILI 1.2 0.2 - 1.2 mg/dL 10/11/2023 1:[address] [facility] SGOT (AST) 17 5 - 34 U/L 10/11/2023 1:[address] [facility] SGPT (ALT) 6 0 - 55 U/L 10/11/2023 1:[address] [facility] ALKALINE PHOSPHATASE 88 40 - 150 U/L 10/11/2023 1:[address] [facility] GFR, ESTIMATED 44(L) >=60 10/11/2023 1:33 PM CLINICAL PROGRAMMER [facility] Comment: Creatinine Clearance is the preferred criteria for selecting drug dose adjustments in renally impaired patients. ??The GFR is provided as additional pertinent clinical information. GFR is reported in mL/min/1.73 sq m. Calculation based on the Chronic Kidney Disease Epidemiology Collaboration (CKD- EPI) equation refit without adjustment for race. GFR, EST. 49(L) >=60 024 1:33 PM CLINICAL PROGRAMMER [facility] GFR, EST. NONAFRICAN 41(L) >=60 10/11/2023 1:33 PM CLINICAL PROGRAMMER [facility] Blood Venipuncture / Unknown 10/11/2023 12:55 PM CLINICAL PROGRAMMER 10/11/2023 1:10 PM CLINICAL PROGRAMMER Tony Chong MD CHEMISTRY ORDERABLES F inal Result [facility] [address] [place] [address] from Last 3 Months or Most Recently Relevant to Health Maintenance Insurance MEDICARE C [employer] Advance Directives * Full Code (Latest Code Status on File) Date Activated Date Inactivated Comments 11/01/2023 8:49 AM * Full Code Date Activated Date Inactivated Comments 10/11/2023 9:50 PM 10/13/2023 6:42 PM CPR-Full Treat ment: FULL ARREST: Attempt Resuscitation/CPR wit intubation and mechanical ventilation. PRE-ARREST: Use entire range of life support measures to stabilize the patient. Care Teams Adjunct Writing Instructor Relationship Specialty Start Date End Date Parker Wilder MD [address] [place] [address] PCP - General Pediatrics 03/08/23 Jose Marrero MD [address] [place] [address] Consulting Physician Neurology 03/08/23
--- OUTSIDE RECORDS SUMMARY | 2024-10-08 16:01 | XMS_ITS | Clinical Summary ---
Author Organization [facility] Address [address] [place] [address]. [place] [address] [place] [address] Care Team Providers Care Biology Internship Name Role Phone Parker Wilder MD Primary Care Provider [phone] Allergies Active Allergy Reactions Criticality Noted Date Comments Povidone Iodine Unknown 02/14/2019 Prochlorperazine Unknown 02/14/2019 Dust Mite Extract Unknown 02/14/2019 Molds & Smuts Unknown 02/14/2019 Medications atorvastatin 20 MG tablet 11/22/2018 Active metFORMIN 500 MG tablet 2 (two) times a day. 11/22/2018 Active risperiDONE 1 MG tablet 1 mg. 11/28/2018 Active fish oil 1000 MG Cap capsule Take 1,000 mg by mouth 2 (two) times daily. Active multi vitamin/mineral s tablet Take 1 tablet by mouth daily. Active glimepiride 2 MG tablet Take 1 tablet (2 mg total) by mouth every morning before breakfast. 30 tablet 06/23/2019 Active fluoxetine 20 MG capsule Take 20 mg by mouth daily. 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 Light-headedness 05/20/2019 Tachycardia 05/20/2019 Mixed hyperlipidemia Benign essential HTN Diabetes ([facility]) Dizziness Back pain Syncope Major depressive disorder Family History Medical History Relation Comments Diabetes Maternal Grandfather Hypertension Mother Relation Status Comments Maternal Grandfather Mother Social History Tobacco Use Types Packs/Day Years Used Date Smoking Tobacco: Never Smokeless Tobacco: Never Alcohol Use Standard Drinks/Week Comments No 0 (1 standard drink = 0.6 oz pur e alcohol) [facility] Answer Date Recorded Frequency of Alcohol Consumption Never 02/14/2019 Average Number of Drinks Not on file 019 Frequency of Binge Drinking Not on file 03/2019 Sex and Gender Information Value Date Recorded Sex Assigned at Not on file Legal Sex Male 5:45 PM CDT Gender Identity Not on file Sexual Orientation Not on file Last Filed Vital Signs Vital Sign Reading Time Taken Comments Blood Pressure 122/88 05/05/2021 9:51 AM CDT Pulse 88 05/05/2021 9:25 AM CDT Temperature - - Respiratory Rate 20 05/05/2021 9:25 AM CDT Oxygen Saturation 95% 05/05/2021 9:25 AM CDT Inhaled Oxygen Concentration - - Weight 109.3 kg (241 lb) 05/05/2021 9:25 AM CDT Height 177.8 cm (5' 10 ) 05/05/2021 9:25 AM CDT Body Mass Index 34.58 05/05/2021 9:25 AM CDT Plan of Treatment Health Maintenance Due Date Last Done Comments Colorectal Cancer Screening Colonoscopy (10 Years) 1957 Kidney Health Evaluation 1957 Lipid Panel 1957 Pneumococcal Vaccine: 65+ Ye ars (1 of 2 - PCV) 1963 Diabetes: Retinopathy Eye Exam 1975 Hepatitis C 1975 DTaP, Tdap and Td Vaccines ( 1 - Tdap) 1976 Zoster Vaccines (1 of 2) 2007 Hemoglobin A1C 09/26/2020 03/26/2020 Annual Medicare Wellness Visit 2022 COVID-19 Vaccine (1 - 2023-2 5 season) 2024 Influenza Adult (#1) 2024 RSV Immunization or 60+ Years (1 - 1-dose 75+ series) 2032 Meningococcal B Vaccine Aged Out No l onger eligible based on patient's age to complete this topic Meningococcal Vaccine Aged Out No casey mono eligible based on patient's age to complete this topic RSV Immunizations Under 20 Months Aged Out No longer eligible based on patient's age to complete this topic Procedures Procedure Name Priority Date/Time Associated Diagnosis Comments HEMOGLOBIN, GLYCOSYLATED Routine 03/26/2020 from Last 3 Months or Most Recently Relevant to Health Maintenance Results * HEMOGLOBIN, GLYCOSYLATED (03/26/2020) HGB A1C 6.0 % 03/26/2020 us Doc [facility] Final Result from Last 3 Months or Most Recently Relevant to Health Maintenance Insurance MEDICARE MEDICARE Care Teams Biology Internship Relationship Specialty Start Date End Date Parker Wilder MD [address] [place] [address] PCP - General FAMILY PRACTICE 12/27/18
== END 2024-10-08 15:13 | disposition home or self-care (01) ==
PROVIDERS: PCP Family Medicine; Visit Provider Family Medicine
DX: M43.16 Spondylolisthesis, lumbar region (principal); M41.85 Other forms of scoliosis, thoracolumbar region; M51.34 Other intervertebral disc degeneration, thoracic region
CPT/HCPCS: 72072; 72100

== ENCOUNTER 2024-10-14 12:54 | Outpatient (RCR) | payer MEDICARE, SELFPAY ==
--- NOTE | 2024-10-14 13:59 | OPREHPOC ---
Outpatient Therapy Plan of Care This is a Multidisciplinary Plan of Care that may contain components documented by all disciplines (PT, OT, and ST.) PT Problem 1 PT Problem #1 Knowledge Deficit PT Goal 1 Goal / Goal Update The patient will be independent in a home exercise program. PT Problem 2 PT Problem #2 Pain PT Goal 1 Goal / Goal Update The patient will report no greater than 2/10 left thoracic pain with sidelying. Target Visit 8 PT Problem 3 PT Problem #3 Impaired Functional Mobility PT Goal 1 Goal / Goal Update The patient will demonstrate 5% or less self perceived disability per the Back Index questionnaire. The patient will report the ability to roll in bed and sleep without pain. Target Visit 8 PT Problem 4 PT Problem #4 Impaired Strength PT Goal 1 Goal / Goal Update The patient will demonstrate 4/5 abdominal strength to improve core stability. Target Visit 8
--- NOTE | 2024-10-14 13:59 | PTOPEVAL1 ---
Assessment and note entered by Bessie Vasques, PT Evaluation Information Assessment Status Evaluation Diagnosis Back pain Other ICD-10 Condition Codes ( M54.9 PT) Onset 10/09/24 Subjective Information Houston Miller reports he started having pain on his left side about 3 weeks ago for unknown reasons. He went to the doctor and x-rays showed narrowing in his spine. He notes he is usually a side sleeper and that makes pain worse. He does note less pain if he sleeps on his back. He also notes pain when he stretches. He reports a history of orthostatic hypotension and has had several falls because of his blood pressure dropping. Reported Pain Level Pain Score 4: Self Report Assessment PT Clinical Summary Houston Miller presents with left thoracic back pain that started 3 weeks ago with an insidious onset. He has a history of orthostatic hypotension and has had several falls. He has difficulty with laying on the left side and stretching. He typically is a left side sleeper. He objectively demonstrates tenderness in the left external oblique, decreased core strength, decreased hip strength, and decreased tolerance to sidelying. He will benefit from skilled PT to address these limitations. Plan of Care Interventions Electrical Stimulation,Hot Pack/Cold Pack,Manual Therapy,Neuro Re-education,Patient/Caregiver Education,Therapeutic Activities,Therapeutic Exercise PT Services Indicated Yes Treatment Frequency and 2 times a week for 8 visits Duration These treatments will address the objective and functional deficits as defined above. The patient will be advanced safely and appropriately in order for the patient to progress towards his/her prior level of function. Additional exercises will be introduced and as well as a comprehensive home exercise program upon discharge, if needed, ?to ensure carryover of functional gains achieved in the clinic. This treatment plan has been reviewed and agreement upon by the patient.
--- NOTE | 2024-11-25 15:27 | PTOPDC ---
Assessment and note entered by Bessie Vasques, PT Evaluation Information Assessment Status Discharge - Pt Not Present Diagnosis Back Pain Other ICD-10 Condition Codes ( M54.9 PT) Onset 10/09/24 Subjective Information Houston Miller called to cancel remaining appointments reporting he was doing better. Reported Pain Level Pain Score 0: Self Report Assessment PT Clinical Summary Houston Miller completed 5 skilled PT visits and called to inform us he was done with physical therapy stating he was feeling better. No objective measures obtained. Plan of Care PT Services Indicated No
== END 2024-10-28 20:00 | disposition home or self-care (01) ==
LOC: CHSPT 12:54
PROVIDERS: PCP Family Medicine; Visit Provider Family Medicine
DX: M54.9 Dorsalgia, unspecified (principal)
CPT/HCPCS: 97014; 97110; 97161; G0283

== ENCOUNTER 2025-01-27 08:03 | Outpatient (CLI) | payer MEDICARE, SELFPAY ==
--- OUTSIDE RECORDS SUMMARY | 2025-01-27 08:09 | XMS_ITS | Clinical Summary ---
Author Organization [facility] - NEUROLOGY [facility] Address [address] [place] [address] Phone Care Team Providers Care Chemical Worker Name Role Phone Parker Wilder MD Primary Care Provider [phone] Jose Marrero MD Unavailable [phone] Allergies Active Allergy Reactions Criticality Noted Date [...] for Nausea - 1st line. 10 Tablet 4 Active polyethylene glycol (GLYCOLAX, MIRALAX) 17 g PackIndications :Constipation Take 1 Packet by mouth 2 times daily as needed for Constipation - 1st line. Dissolve in 4-8 oz of liquid. Indications: Constipation 90 Packet 4 Active senna (SENOKOT) 8.6 MG Tablet Take 1 Tablet by mouth 2 times daily as needed for Constipation - 2nd line. 30 Tablet 4 Active glipiZIDE (GLUCOTROL XL) 2.5 MG TABLET SR 24 HR Take 1 Tablet by mouth daily. 90 Tablet 4 Active potassium chloride CR (KLORCON) 10 MEQ Tablet Controlled Release Take 1 Tablet by mouth daily. 90 Tablet 4 Active Droxidopa 200 MG Capsule Take 200 mg by mouth 3 times daily. 270 Capsule 3 5 Active carbidopa-levod opa (SINEMET) 25-100 MG Tablet TAKE ONE TABLET BY MOUTH THREE TIMES A DAY #1110 90 Tablet 2 5 Active Active Problems Problem Noted Date Diagnosed Date Morbid obesity 11/04/2023 Tremor 10/12/2023 Testicular cancer 10/12/2023 Sleep apnea 10/12/2023 Mixed hyperlipidemia 10/12/2023 Hypertension 10/12/2023 Head injury with loss of consciousness 4 Dysthymic disorder 10/12/2023 DM type 2 (diabetes mellitus, type 2) 10/12/2023 Aortic aneurysm 10/12/2023 Acute kidney injury 10/12/2023 Gait disturbance 10/11/2023 Encounters Date Type Department Care Team Description 01/14/2025 [facility] [place] [address] [place] [address] Jose Marrero MD Medication Refill 12/17/2024 [facility] [address] [place] [address] Jose Marrero MD Medication Refill 11/14/2024 2:30 PM ENGAGEMENT MANAGER [facility] [address] [place] [address] Jose Marrero MD Multiple system atrophy P (HCC) (Primary Dx); Morbid obesity (HCC) Discharge Disposition: Discharged to home or Selfcare 11/14/2024 Travel 11/10/2024 Travel from Last 3 Months Immunizations Immunization Administration [...] drink = 0.6 oz pur e alcohol) [facility] Utilities Answer Date Recorded In the past 12 months has [employer], [employer], oil, or water dakick threatened to shut off services in your [...] 10/11/2023 How often do you attend chur or sabianist services? Never 10/11/2023 Do you belong to any clubs o r organizations such as yarsanism groups, unions, fraternal or athletic groups, or [...] and heating? Not hard at all 10/11/2023 [facility] of Occupat ional Health - Occupational Stress [...] place to sleep or slept in a senior care (including now)? No 10/11/2023 Sexually Active Control Partners Comments Not Currently Female Sex and Gender Information Value Date Recorded Sex Assigned at Male 11/01/2023 2:21 PM ENGAGEMENT MANAGER Legal Sex Male 11:21 PM CDT Gender Identity Male 11/01/2023 2:21 PM ENGAGEMENT MANAGER Sexual Orientation Straight 11/01/2023 2: 21 PM ENGAGEMENT MANAGER Last Filed Vital Signs Vital Sign Reading Time Taken Comments Blood Pressure 160/114 11/14/2024 2:18 PM ENGAGEMENT MANAGER Pulse 83 11/14/2024 2:18 PM ENGAGEMENT MANAGER Temperature 36.6 C (97.9 F) 11/14/2024 2:18 PM ENGAGEMENT MANAGER Respiratory Rate 16 11/14/2024 2:18 PM ENGAGEMENT MANAGER Oxygen Saturation 100% 11/14/2024 2:18 PM ENGAGEMENT MANAGER Inhaled Oxygen Concentration - - Weight 98.2 kg (216 lb 8 oz) 11/14/2024 2:18 PM ENGAGEMENT MANAGER Height 177.8 cm (5' 10 ) 11/14/2024 2:18 PM ENGAGEMENT MANAGER Body Mass Index 31.06 11/14/2024 2:18 PM ENGAGEMENT MANAGER Plan of Treatment Upcoming Encounters Date Type Department Care Team (Late st Contact Info) Description 05/21/2025 2:30 PM CDT Office Visit [facility] - [facility] [address] [place] [address] Jose Marrero MD [address] [place] [address] Health Maintenance Due Date Last Done Comments Diabetes: Eye Exam 1955 Diabetes: Foot Exam 1955 Hepatitis C Virus (HCV) Screening 1955 Zoster Immunization (1 of 2) 1976 Colonoscopy 2002 Colorectal Cancer Screening 2002 Cologuard 2007 Immunochemical Fecal Occult Blood 2007 PSA Discussion 2012 Pneumococcal Immunization (50+ years) (2 of 2 - PCV) 07/12/2021 07/12/2020 Diabetes: Hemoglobin A1c 04/10/2024 10/11/2023, 03/10 Diabetes: Nephropathy Screening 10/11/2024 10/11/2023 SARS-COV-2 Immunization (7 - Mixed Product risk season) 2025 08/01/2024, 08/13/2023, 07/13/2022, Additional history exists DTaP/Tdap/Td Immunization Discontinued 03/06/2011 TdaP Immunization Completed 03/06/2011 Respiratory Syncytial Virus (RSV) Immunization (Adult) Completed 08/23/2023 Influenza Immunization Completed , 06/20/2023, 05/16/2022, Additional history exists Hepatitis B Immunization Aged Out No longer eligible based on patient's age to complete this topic Human Papillomavirus (HPV) Immunization Aged Out No longer eligible based on patient's age to complete this topic Meningococcal Immunization (ACWY) Aged Out No longer eligible based on patient's age to complete this topic Rotavirus Immunization Aged Out No lo nger eligible based on patient's age to complete this topic Procedures Procedure Name Priority Date/Time Associated Diagnosis Comments CMP (COMPREHENSIVE METABOLIC PANEL) STAT 10/11/2023 12:55 PM ENGAGEMENT MANAGER HEMOGLOBIN A1C W/ ESTIMATED GLUCOSE Routine 10/11/2023 12:55 PM ENGAGEMENT MANAGER from Last 3 Months or Most Recently Relevant to Health Maintenance Results * (ABNORMAL) Hemoglobin A1C (if indicated) (10/11/2023 12:55 PM ENGAGEMENT MANAGER) HGB-A1C 8.0(H) 4.0 - 6.0 % 10/12/2023 12:11 AM ENGAGEMENT MANAGER [facility] Est Average Glucose 182.9 mg/dL 10/12/2023 12:11 AM ENGAGEMENT MANAGER [facility] Blood Venipuncture / Unknown 10/11/2023 12:55 PM ENGAGEMENT MANAGER 10/11/2023 1:10 PM ENGAGEMENT MANAGER Narrative [facility] - 10/12/2023 12:11 AM ENGAGEMENT MANAGER HEMOGLOBIN A1C: DIABETIC PATIENTS: WELL-CONTROLLED: 6.2 - 7.0 INTERMEDIATE WELL-CONTROLLED: 7.0 - 9.0 POORLY-CONTROLLED: >9.0 us [place] ENVIRONMENTAL FIELD TEAM MEMBER, FORCE ADJUSTMENT SUPERVISOR CHEMISTRY ORDERABLES Fi nal Result [facility] [address] [place] [address] * (ABNORMAL) CMP (Comprehensive Metabolic Panel) (10/11/2023 12:55 PM [facility]) SODIUM 136 136 - 145 mmol/L 10/11/2023 1:33 PM [facility] POTASSIUM 5.5(H) 3.5 - 5.1 mmol/L 10/11/2023 1:33 PM [facility] CHLORIDE 108(H) 98 - 107 mmol/L 10/11/2023 1:33 PM [facility] CO2, VENOUS 20(L) 22 - 30 mmol/L 10/11/2023 1:33 PM [facility] ANION GAP 13.5 <18.0 mmol/L 10/11/2023 1:33 PM [facility] GLUCOSE 297(H) 70 - 99 mg/dL 10/11/2023 1:33 PM [facility] BUN 27(H) 8 - 26 mg/dL 10/11/2023 1:33 PM [facility] CREATININE, BLOOD 1.70(H) 0.70 - 1.30 mg/dL 10/11/2023 1:33 PM [facility] BUN/CREATININE RATIO 16 12 - 20 ratio 10/11/2023 1:33 PM [facility] TOTAL PROTEIN 7.8 6.3 - 8.2 g/dL 10/11/2023 1:33 PM [facility] ALBUMIN 4.3 3.5 - 5.0 g/dL 10/11/2023 1:33 PM [facility] A/G RATIO 1.2 1.0 - 2.2 10/11/2023 1:33 PM [facility] CALCIUM 9.6 8.7 - 10.5 mg/dL 10/11/2023 1:33 PM [facility] T BILI 1.2 0.2 - 1.2 mg/dL 10/11/2023 1:33 PM [facility] SGOT (AST) 17 5 - 34 U/L 10/11/2023 1:33 PM [facility] SGPT (ALT) 6 0 - 55 U/L 10/11/2023 1:33 PM ENGAGEMENT MANAGER [facility] ALKALINE PHOSPHATASE 88 40 - 150 U/L 10/11/2023 1:33 PM ENGAGEMENT MANAGER [facility] GFR, ESTIMATED 44(L) >=60 10/11/2023 1:33 PM ENGAGEMENT MANAGER [facility] Comment: Creatinine Clearance is the preferred criteria for selecting drug dose adjustments in renally impaired patients. The GFR is provided as additional pertinent clinical information. GFR is reported in mL/min/1.73 sq m. Calculation based on the Chronic Kidney Disease Epidemiology Collaboration (CKD- EPI) equation refit without adjustment for race. GFR, EST. 49(L) >=60 024 1:33 PM ENGAGEMENT MANAGER [facility] GFR, EST. NONAFRICAN 41(L) >=60 10/11/2023 1:33 PM ENGAGEMENT MANAGER [facility] Blood Venipuncture / Unknown 10/11/2023 12:55 PM ENGAGEMENT MANAGER 10/11/2023 1:10 PM ENGAGEMENT MANAGER Tony Chong MD CHEMISTRY ORDERABLES F inal Result [facility] [address] [place] [address] from Last 3 Months or Most Recently [...] measures to stabilize the patient. Care Teams Chemical Worker Relationship Specialty Start Date End Date Parkre Wilder MD [address] [place] [address] PCP - General Pediatrics 03/08/23 Jose Marrero MD [address] [place] [address] Consulting Physician Neurology 03/08/23
--- OUTSIDE RECORDS SUMMARY | 2025-01-27 08:09 | XMS_ITS | Encounter Summary ---
Author Organization [facility] Address [address] [place] [address] Phone Care Team Providers Care Grave Digger Name Role Phone Parker Wilder MD Primary Care Provider [phone] Jose Marrero MD Unavailable [phone] Reason for Visit * Reason Comments Medication Refill Encounter Details Date Type Department Care Team (Late st Contact Info) Description 01/14/[address] [facility] [address] [place] [address] Jose Marrero MD [address] [place] [address] Medication Refill Social History Tobacco Use Types Packs/Day Years Used Date Smoking Tobacco: Never Smokeless Tobacco: Never Alcohol Use Standard Drinks/Week Comments Never 0 (1 standard drink = 0.6 oz pur e alcohol) [facility] Utilities Answer Date Recorded In the past 12 months has [employer], gas, oil, or water company threatened to [...] often do you attend chur ch or pentecostal services? Never 10/11/2023 Do you belong to any clubs o r organizations such as yazdanism groups, unions, fraternal or athletic groups, or [...] and heating? Not hard at all 10/11/2023 [facility] of Occupat ional Health - [...] place to sleep or slept in a mcc (including now)? No 10/11/2023 Sexually Active Control Partners Comments Not Currently Female Sex and Gender Information Value Date Recorded Sex Assigned at Male 11/01/2023 2:21 PM EXPLOSIVE OPERATOR BOMB Legal Sex Male 11:21 PM CDT Gender Identity Male 11/01/2023 2:21 PM EXPLOSIVE OPERATOR BOMB Sexual Orientation Straight 11/01/2023 2: 21 PM EXPLOSIVE OPERATOR BOMB documented as of this encounter Plan of Treatment Upcoming Encounters Date Type Department Care Team (Late st Contact Info) Description 05/21/2025 2:30 PM CDT Office Visit [facility] [address] [place] [phone] Jose Marrero MD [address] [place] [address] documented as of this encounter Visit Diagnoses Not on filedocumented in this encounter Care Teams Grave Digger Relationship Specialty Start Date End Date Parker Wilder MD [address] [place] [address] PCP - General Pediatrics 03/08/23 Jose Marrero MD [address] [place] [address] Consulting Physician Neurology 03/08/23 documented as of this encounter
--- OUTSIDE RECORDS SUMMARY | 2025-01-27 08:09 | XMS_ITS | Encounter Summary ---
Author Organization [facility] Address [address] [place] [address] Phone Care Team Providers Care Poultry Raiser Name Role Phone Parker Wilder MD Primary Care Provider [phone] Jose Marrero MD Unavailable [phone] Reason for Visit * Reason Comments Medication Refill Encounter Details Date Type Department Care Team (Late st Contact Info) Description 02/28/2024 Refill [facility] - [facility] [address] [place] [address] Joes Marrero MD [address] [place] [address] Medication Refill Social History Tobacco Use Types Packs/Day Years Used Date Smoking Tobacco: Never Smokeless Tobacco: Never Alcohol Use Standard Drinks/Week Comments Never 0 (1 standard drink = 0.6 oz pur e alcohol) [facility] Utilities Answer Date Recorded In the past 12 months has [employer], gas, oil, or water company threatened to [...] often do you attend chur ch or judaism services? Never 10/11/2023 Do you belong to any clubs o r organizations such as yarsani groups, unions, fraternal or athletic groups, or [...] and heating? Not hard at all 10/11/2023 [facility] of Occupat ional Health - Occupational [...] place to sleep or slept in a mcfp (including now)? No 10/11/2023 Sexually Active Control Partners Comments Not Currently Female Sex and Gender Information Value Date Recorded Sex Assigned at Male 11/01/2023 2:21 PM DIRECTOR OF KNOWLEDGE MANAGEMENT Legal Sex Male 11:21 PM CDT Gender Identity Male 11/01/2023 2:21 PM DIRECTOR OF KNOWLEDGE MANAGEMENT Sexual Orientation Straight 11/01/2023 2: 21 PM DIRECTOR OF KNOWLEDGE MANAGEMENT documented as of this encounter Miscellaneous Notes [...] Dept 11/02/23 Office Visit [facility] 06/12/23 Office Visit Jose Marrero MD [facility] 03/08/23 Office Visit Jose [facility] MD [facility] Showing recent visits within past 365 days and meeting all other requirements Future Appointments Date Type Provider Dept 05/05/24 Appointment Jose Marrero MD [facility] [address] Showing future appointments within next 90 days and meeting all other requirements documented in this encounter Plan of Treatment Upcoming Encounters Date Type Department Care Team (Late st Contact Info) Description 05/21/2025 2:30 PM CDT Office Visit [facility] - [facility] [address] [place] [address] Jose Marrero MD [address] [place] [address] documented as of this encounter Visit Diagnoses Not on filedocumented in this encounter Care Teams Poultry Raiser Relationship Specialty Start Date End Date Parker Wilder MD [address] [place] [address] PCP - General Pediatrics 03/08/23 Jose Marrero MD [address] [place] [address] Consulting Physician Neurology 03/08/23 documented as of this encounter
--- OUTSIDE RECORDS SUMMARY | 2025-01-27 08:09 | XMS_ITS | Encounter Summary ---
Author Organization [facility] Address [address] [place] [address] Phone Care Team Providers Care Deputy Sheriff Civil Division Name Role Phone Parker Wilder MD Primary Care Provider [phone] Jose Marrero MD Unavailable [phone] Encounter Details Date Type Department Care Team (Late st Contact Info) Description 10/18/2023 Lab Requisition [facility] Services [address] [place] [address] Jose Marrero MD [address] [place] [address] Hyperkalemia Social History Tobacco Use Types Packs/Day Years Used Date Smoking Tobacco: Never Smokeless Tobacco: Never Alcohol Use Standard Drinks/Week Comments Never 0 (1 standard drink = 0.6 oz pur e alcohol) [facility] Utilities Answer Date Recorded In the past 12 months has [employer]), gas, oil, or water company threatened to [...] often do you attend chur ch or mosque services? Never 10/11/2023 Do you belong to any clubs o r organizations such as uatsdin groups, unions, fraternal or athletic groups, or [...] and heating? Not hard at all 10/11/2023 [facility] of Occupat ional Health - Occupational Stress [...] place to sleep or slept in a group home (including now)? No 10/11/2023 Sexually Active Control Partners Comments Not Currently Female Sex and Gender Information Value Date Recorded Sex Assigned at Male 11/01/2023 2:21 PM STOCK SUPERVISOR Legal Sex Male 11:21 PM CDT Gender Identity Male 11/01/2023 2:21 PM STOCK SUPERVISOR Sexual Orientation Straight 11/01/2023 2: 21 PM STOCK SUPERVISOR documented as of this encounter Plan of Treatment Upcoming Encounters Date Type Department Care Team (Late st Contact Info) Description 05/21/2025 2:30 PM CDT [facility] [address] [place] [address] Jose Marrero MD [address] [place] [address] documented as of this encounter Procedures Procedure Name Priority Date/Time Associated Diagnosis Comments CBC WITH AUTO DIFFERENTIAL Routine 10/17/2023 12:00 PM STOCK SUPERVISOR Hyperkalemia COMPLETE BLOOD COUNT (CBC) WITH DIFF Routine 10/17/2023 12:00 PM STOCK SUPERVISOR Hyperkalemia BASIC METABOLIC PANEL W/ CALCIUM TOTAL Routine 10/17/2023 12:00 PM STOCK SUPERVISOR Hyperkalemia documented in this encounter Results * (ABNORMAL) CBC WITH AUTO DIFFERENTIAL (10/17/2023 12:00 PM STOCK SUPERVISOR) WBC 7.64 4.00 - 12.00 10(3)/mcL 10/18/2023 1:14 PM [facility] RBC 4.79 4.40 - 5.80 10(6)/mcL 10/18/2023 1:14 PM [facility] HEMOGLOBIN (HGB) 14.2 13.0 - 16.5 g/dL 10/18/2023 1:14 PM [facility] HEMATOCRIT (HCT) 43.8 38.0 - 50.0 % 10/18/2023 1:14 PM [facility] MCV 91.4 82.0 - 96.0 fL 10/18/2023 1:14 PM [facility] MCH 29.6 26.0 - 32.0 pg 10/18/2023 1:14 PM [facility] MCHC 32.4 31.0 - 36.0 g/dL 10/18/2023 1:14 PM [facility] PLATELET COUNT 253 140 - 440 10(3)/mcL 10/18/2023 1:14 PM [facility] RDW 13.4 11.8 - 15.5 % 10/18/2023 1:14 PM [facility] MPV 11.3 8.0 - 12.6 fL 10/18/2023 1:14 PM [facility] NEUTROPHILS 76.4(H) 40.0 - 68.0 % 10/18/2023 1:14 PM [facility] LYMPHOCYTES 16.0(L) 19.0 - 49.0 % 10/18/2023 1:14 PM [facility] MONOCYTES 6.2 3.0 - 13.0 % 10/18/2023 1:14 PM [facility] EOSINOPHILS 0.9 0.0 - 8.0 % 10/18/2023 1:14 PM [facility] BASOPHILS 0.5 0.0 - 1.0 % 10/18/2023 1:14 PM [facility] ABSOLUTE NEUTROPHILS 5.84(H) 1.40 - 5.30 10(3)/mcL 10/18/2023 1:14 PM [facility] ABSOLUTE LYMPHOCYTES 1.22 0.90 - 3.30 10(3)/mcL 10/18/2023 1:14 PM STOCK SUPERVISOR [facility] ABSOLUTE MONOCYTES 0.47 0.10 - 0.90 10(3)/mcL 10/18/2023 1:14 PM STOCK SUPERVISOR [facility] ABSOLUTE EOSINOPHIL 0.07 0.00 - 0.50 10(3)/mcL 10/18/2023 1:14 PM STOCK SUPERVISOR [facility] ABSOLUTE BASOPHILS 0.04 0.00 - 0.10 10(3)/[facility] 10/18/2023 1:14 PM STOCK SUPERVISOR [facility] NRBC PER 100 WBC 0 10/18/19 1:14 PM [facility] Blood No Phlebotomy Charged / Unknown 10/17/2023 12:00 PM STOCK SUPERVISOR 10/18/2023 1:07 PM STOCK SUPERVISOR us oJse Marrero MD HEMATOLOGY ORDERABLES Final Result [facility] [address] [place] [address] * (ABNORMAL) BASIC METABOLIC PANEL W/ CALCIUM TOTAL (10/17/2023 12:00 PM STOCK SUPERVISOR) SODIUM 141 136 - 145 mmol/L 10/18/2023 1:30 PM STOCK SUPERVISOR [facility] POTASSIUM 4.6 3.5 - 5.1 mmol/L 10/18/2023 1:30 PM [facility] CHLORIDE 109(H) 98 - 107 mmol/L 10/18/2023 1:30 PM [facility] CO2, VENOUS 23 22 - 30 mmol/L 10/18/2023 1:30 PM [facility] ANION GAP 13.6 <18.0 mmol/L 10/18/2023 1:30 PM [facility] GLUCOSE 203(H) 70 - 99 mg/dL 10/18/2023 1:30 PM [facility] BUN 21 8 - 26 mg/dL 10/18/2023 1:30 PM STOCK SUPERVISOR [facility] CREATININE, BLOOD 1.45(H) 0.70 - 1.30 mg/dL 10/18/2023 1:30 PM STOCK SUPERVISOR [facility] BUN/CREATININE RATIO 14 12 - 20 ratio 10/18/2023 1:30 PM STOCK SUPERVISOR [facility] CALCIUM 9.1 8.7 - 10.5 mg/dL 10/18/2023 1:30 PM STOCK SUPERVISOR [facility] GFR, ESTIMATED 53(L) >=60 10/18/2023 1:30 PM STOCK SUPERVISOR [facility] Comment: Creatinine Clearance is the preferred criteria for selecting drug dose adjustments in renally impaired patients. The GFR is provided as additional pertinent clinical information. GFR is reported in mL/min/1.73 sq m. Calculation based on the Chronic Kidney Disease Epidemiology Collaboration (CKD- EPI) equation refit without adjustment for race. GFR, EST. 59(L) >=60 024 1:30 PM STOCK SUPERVISOR [facility] GFR, EST. NONAFRICAN 49(L) >=60 10/18/2023 1:30 PM STOCK SUPERVISOR [facility] Blood No Phlebotomy Charged / Unknown 10/17/2023 12:00 PM STOCK SUPERVISOR 10/18/2023 1:07 PM STOCK SUPERVISOR us Jose Marrero MD CHEMISTRY ORDERABLES Final R esult [facility] [address] [place] [address] documented in this encounter Visit Diagnoses Diagnosis Hyperkalemia Hyperpotassemia documented in this encounter Care Teams Deputy Sheriff Civil Division Relationship Specialty Start Date End Date Parker Wilder MD [address] [place] [address] PCP - General Pediatrics 03/08/23 Jose Marrero MD [address] [facility] [place] [address] Consulting Physician Neurology 03/08/23 documented as of this encounter
--- OUTSIDE RECORDS SUMMARY | 2025-01-27 08:09 | XMS_ITS | Clinical Summary ---
Author Organization [facility] Address [facility] [place] [address] Care Team Providers Care Supplemental Manager Name Role Phone Parker Wilder MD Primary Care Provider [phone] Allergies Active Allergy Reactions Criticality Noted Date [...] 05/20/2019 Mixed hyperlipidemia Benign essential HTN Diabetes ([facility]) Dizziness Back pain Syncope Major [...] Kidney Health Evaluation 1955 Lipid Panel 1957 Diabetes: Retinopathy Eye Exam 1975 Hepatitis C 1975 DTaP, Tdap and Td Vaccines ( 1 - Tdap) 1976 Pneumococcal Vaccine: 50+ Ye ars (1 of 2 - PCV) 1976 Zoster Vaccines (1 of 2) 2007 Hemoglobin A1C 09/26/2020 03/26/2020 Annual Medicare Wellness Visit 2022 COVID-19 Vaccine ( - 2023-2 5 season) 2024 RSV Immunization or 60+ Years (1 [...] Health Maintenance Insurance MEDICARE MEDICARE Care Teams Supplemental Manager Relationship Specialty Start Date End Date Parker Wilder MD [address] [place] [id number] PCP - General FAMILY PRACTICE 12/27/18
[2025-01-27 08:36] LABS: Basophils Absolute Auto 0.03 K/mm3 (0.00-0.10); Basophils Percent Auto 0.4 % (0.0-1.0); Eosinophils Absolute Auto 0.09 K/mm3 (0.02-0.50); Eosinophils Percent Auto 1.3 % (1.0-6.0); Hematocrit 44.5 % (37.0-46.0); Hemoglobin 14.1 g/dL (12.4-15.3); Immature Granulocyte Absolute 0.03 K/mm3 (0.00-0.00); Immature Granulocyte Percent A 0.4 % (0.0-0.0); Lymphocytes Absolute Auto 1.77 K/mm3 (1.10-4.50); Lymphocytes Percent Auto 26.5 % (18.0-42.0); Mean Corpuscular HGB Conc 31.7 g/dL (32-36); Mean Corpuscular Hemoglobin 28.8 pg (27.0-31.0); Mean Platelet Volume 11.6 fl (8.7-11.0); Monocytes Absolute Auto 0.38 K/mm3 (0.10-0.90); Monocytes Percent Auto 5.7 % (2.0-11.0); Neutrophils Absolute Auto 4.39 K/mm3 (1.70-7.20); Neutrophils Percent Auto 65.7 % (50.0-70.0); Platelet Count Result 162 K/mm3 (150-420); Red Blood Count 4.89 M/mm3 (4.70-6.10); Red Cell Distribution Width 12.6 % (11.6-14.4); White Blood Count 6.7 K/mm3 (4.8-10.8)
[2025-01-27 09:58] LABS: Alanine Aminotransferase 23 U/L (6-50); Albumin Level 4.3 g/dL (3.5-5.1); Alkaline Phosphatase 75 U/L (38-126); Anion Gap 7 mmol/L (4-12); Aspartate Amino Transferase 24 U/L (17-59); Bilirubin,Total 1.8 mg/dL (0.2-1.3); Blood Urea Nitrogen 16 mg/dL (9-20); Calcium 8.8 mg/dL (8.4-10.2); Carbon Dioxide 28 mmol/L (22-30); Chloride 107 mmol/L (98-107); Estimated Glomerular Filt Rate 59; Glucose 109 mg/dL (65-110); Osmolality Calculated 296 mOsm/kg (285-295); Potassium 3.7 mmol/L (3.4-5.0); Sodium 142 mmol/L (137-145); Total Protein 6.7 g/dL (6.3-8.2)
[2025-01-28 10:36] LABS: Bilirubin Direct < 0.1 mg/dL (0-0.3)
== END 2025-01-27 08:04 | disposition home or self-care (01) ==
LOC: CHSLAB 08:06
PROVIDERS: PCP Family Medicine; Visit Provider Family Medicine
DX: I10 Essential (primary) hypertension (principal); E11.9 Type 2 diabetes mellitus without complications
CPT/HCPCS: 36415; 80053; 82248; 83036; 85025

== ENCOUNTER 2025-03-09 07:52 | Outpatient (CLI) | payer MEDICARE, SELFPAY ==
--- NOTE | 2025-03-09 07:56 | EST_ITS ---
Patient Info Name: Houston Miller Age: 69 years : 1955 Gender: Male Ht: 70 in Wt: 199 lbs BSA: 2.13 m2 HR: 67 bpm BP: 115 / 72 mmHg Heart Rhythm: Sinus Rhythm Technical Quality: Good Exam Date: 03/09/2025 7:56 AM Patient Status: O Admit Date: 03/09/2025 Exam Type: CA stress giovanni w NM A regadenoson stress test was performed. Staff Referring Physician: Henry Santiago DO Attending Provider: Henry Santiago DO Summary 1. 1. Negative lexiscan stress test for ischemic ST changes by ECG criteria. 2. 2. Stable hemodynamics throughout the test. 3. 3. Nuclear scan to follow and will be reported separately. Please correlate with it. History/Risk Factors Hypertension: Yes Dyslipidemia: Yes Diabetes Mellitus: Type II Protocol: LEXISCAN Stress ECG Details Stage: REST Duration (min): 1 min : 7 sec HR (bpm): 67 SBP (mmHg): 115 DBP (mmHg): 72 Stage: REST Duration (min): 1 min : 54 sec HR (bpm): 64 SBP (mmHg): 115 DBP (mmHg): 72 Stage: REST Duration (min): 6 min : 24 sec HR (bpm): 64 SBP (mmHg): 115 DBP (mmHg): 72 Stage: STAGE 1 Duration (min): 0 min : 17 sec HR (bpm): 63 SBP (mmHg): 115 DBP (mmHg): 72 Stage: RECOVERY Duration (min): 0 min : 42 sec HR (bpm): 71 SBP (mmHg): 115 DBP (mmHg): 72 Stage: RECOVERY Duration (min): 1 min : 42 sec HR (bpm): 79 SBP (mmHg): 115 DBP (mmHg): 72 Stage: RECOVERY Duration (min): 2 min : 2 sec HR (bpm): 77 SBP (mmHg): 115 DBP (mmHg): 72 Stage: RECOVERY Duration (min): 2 min : 42 sec HR (bpm): 75 SBP (mmHg): 102 DBP (mmHg): 72 Stage: RECOVERY Duration (min): 3 min : 18 sec HR (bpm): 72 SBP (mmHg): 102 DBP (mmHg): 72 Stage: RECOVERY Duration (min): 3 min : 42 sec HR (bpm): 72 SBP (mmHg): 120 DBP (mmHg): 80 Stage: RECOVERY Duration (min): 4 min : 42 sec HR (bpm): 72 SBP (mmHg): 120 DBP (mmHg): 83 Stage: RECOVERY Duration (min): 5 min : 2 sec HR (bpm): 74 SBP (mmHg): 120 DBP (mmHg): 83 Stage: RECOVERY Duration (min): 5 min : 42 sec HR (bpm): 74 SBP (mmHg): 120 DBP (mmHg): 83 Stage: RECOVERY Duration (min): 6 min : 2 sec HR (bpm): 75 SBP (mmHg): 120 DBP (mmHg): 83 Rest HR: 64 bpm Peak HR: 79 bpm Rest Sys BP: 115 mmHg Peak Sys BP: 120 mmHg Max Pred HR: 153 bpm % Max Pred HR: 52 % Target HR: 130 bpm Max RPP: 9,480 bpm*mmHg BP Response: Normal blood pressure response Termination Reason: Completed Protocol Cardiac Symptoms: None Total Time: 0 min : 17 sec Rest Ortiz BP: 72 mmHg Peak Ortiz BP: 83 mmHg Total Dose: 0.4 mg Resting ECG Sinus rhythm with nonspecific ST \T\ T-wave abnormality. Stress ECG No abnormal ST/T wave changes. Arrhythmias Frequent PVCs. Report Signatures
--- NOTE | 2025-03-09 13:35 | WPDCARIOSTRE ---
Nuclear Stress Test INDICATIONS Indications: Dyspnea PROCEDURE Procedure Performed: Myocardial Perf Spect-Multi Procedure: Patient underwent a lexiscan stress test and immediately was injected with 33.4 mCi of cardiolyte. Multiple tomographic images were obtained. There is a small size, mild inferior perfusion defect with stress imaging. A separate resting images were obtained after patient was injected with 10.7 mCi of cardiolyte. Multiple tomographic images were obtained. There is a small size, mild inferior perfusion defect with rest imaging. CONCLUSION Conclusion: 1. Myocardial perfusion imaging demonstrating a fixed small size inferior perfusion defect suggestive of diaphragmatic attenuation artifact. 2. No evidence of reversible ischemia. 3. Left ventriculogram demonstrates normal measured ejection fraction of 52% with no wall motion abnormalities. 4. TID score 0.99 is not elevated.
== END 2025-03-09 07:53 | disposition home or self-care (01) ==
LOC: CHSIMG 07:53
PROVIDERS: PCP Family Medicine; Visit Provider Internal Medicine Cardiovascular Disease
DX: R06.09 Other forms of dyspnea (principal); I10 Essential (primary) hypertension
CPT/HCPCS: 78452; 93017; A9502; J2785

== ENCOUNTER 2025-03-28 16:04 | Emergency (ER) | payer MEDICARE, SELFPAY ==
[2025-03-28] VITALS (14 sets, daily range): BP systolic 91–152; BP diastolic 63–103; PULSE 69–89; RESP 16–18; TEMP 36.7; O2SAT 92–100
--- NOTE | ~2025-03-28 | XR_ITS ---
Portable chest x-ray Comparison: 06/11/2024 Clinical History: Dizziness, syncope Findings: Linear left basilar scarring or atelectasis present. Right lung clear. Cardiomediastinal silhouette is stable. Bones and soft tissues are unremarkable. Impression: Linear left basilar scarring or atelectasis, otherwise clear lungs. Reviewed, dictated and finalized at location . Impression: Linear left basilar scarring or atelectasis, otherwise clear lungs.
--- NOTE | ~2025-03-28 | CT_ITS ---
CT Facial Bones Clinical Indication: Possible right maxillary sinus on head CT Technique: Contiguous axial scans were obtained through the facial bones followed by coronal and sagi ttal reconstructions. Dose reduction technique was used on this scan by utilizing automated exposure control and iterative reconstruction technique. The dose-length product (DLP) was 299.77 mGy-cm. Findings: There are blood products layering the right maxillary sinus. Probable nondisplaced fracture the posterior wall the right maxillary sinus. No other definite fracture identified. No intraorbital abnormality seen. Remaining paranasal sinuses and mastoid air cells are clear. Impression: Probable acute nondisplaced fracture the posterior wall the right maxillary sinus. Blood products layering in the right maxillary sinus. Reviewed, dictated and finalized at location . Impression: Probable acute nondisplaced fracture the posterior wall the right maxillary sin us. Blood products layering in the right maxillary sinus.
--- NOTE | ~2025-03-28 | CT_ITS ---
CT head without contrast Indication: Dizziness, syncope COMPARISON: 06/11/2024 Technique: Serial scans were obtained through the brain without the administration of contrast. Dose reduction technique was used on this scan by utilizing automated exposure control and iterative recon struction technique. The dose-length product (DLP) was 605.33 mGy-cm. Findings: There is no evidence of intracranial hemorrhage, mass lesion, or acute infarct. The ventri cles and subarachnoid spaces are dilated, consistent with mild atrophy. Minimal low attenuation regio ns are seen within the periventricular white matter bilaterally, likely representing changes from chr onic microvascular ischemic disease. There is no evidence of edema, mass effect or midline shift. Th ere are probable blood products layering in the right maxillary sinus. The remaining visualized paran dav sinuses and mastoid air cells are clear. Impression: No intracranial hemorrhage, mass, or acute infarct. Probable blood products layering in the right maxillary sinus. This is suspicious for facial bone fra cture, though no definite facial bone fracture seen on this exam. Consider dedicated facial bones CT to further evaluate, as indicated. Atrophy and chronic white matter changes, as above. Reviewed, dictated and finalized at location . Impression: No intracranial hemorrhage, mass, or acute infarct. Probable blood products layering in the right maxillary sinus. This is suspicio us for facial bone fracture, though no definite facial bone fracture seen on th is exam. Consider dedicated facial bones CT to further evaluate, as indicated. Atrophy and chronic white matter changes, as above.
--- OUTSIDE RECORDS SUMMARY | 2025-03-28 16:07 | XMS_ITS | Encounter Summary ---
Author Organization [facility] Address [address] [place] [address] Phone Care Team Providers Care Locomotive Operator Name Role Phone Parker Wilder MD Primary Care Provider [phone] Jose Marrero MD Unavailable [phone] Reason for Visit * Reason Comments Medication Refill Encounter Details Date Type Department Care Team (Late st Contact Info) Description 01/14/2025 Refill [facility] - Neurology [facility] [address] [place] [address] Jose Marrero MD [address] [place] [address] Medication Refill Social History Tobacco Use Types Packs/Day Years Used Date Smoking Tobacco: Never Smokeless Tobacco: Never Alcohol Use Standard Drinks/Week Comments Never 0 (1 standard drink = 0.6 oz pur e alcohol) [facility] Utilities Answer Date Recorded In the past 12 months has [employer], gas, oil, or water company threatened to shut off services in your home? No 10/11/2023 Social Connection and Isolation Panel Answer Date Recorded In a typical week, [...] any clubs o r organizations such as latter-day groups, unions, fraternal or athletic groups, or [...] and heating? Not hard at all 10/11/2023 [facility] Occupat ional Health - Occupational [...] place to sleep or slept in a skilled nursing (including now)? No 10/11/2023 Sexually Active Control Partners Comments Not Currently Female Sex and Gender Information Value Date Recorded Sex Assigned at Male 11/01/2023 2:21 PM WAFER POLISHER Legal Sex Male 11:21 PM CDT Gender Identity Male 11/01/2023 2:21 PM WAFER POLISHER Sexual Orientation Straight 11/01/2023 2: 21 PM WAFER POLISHER documented as of this encounter Plan of Treatment Upcoming Encounters Date Type Department Care Team (Late st Contact Info) Description 05/21/2025 2:30 PM CDT Office Visit [facility] - Neurology [facility] [address] [place] [phone] Jose Marrero MD [address] [place] [address] documented as of this encounter Visit Diagnoses Not on filedocumented in this encounter Care Teams Locomotive Operator Relationship Specialty Start Date End Date Parker Wilder MD [address] [place] [address] PCP - General Pediatrics 03/08/23 Jose Marrero MD [address] [place] [phone] Consulting Physician Neurology 03/08/23 documented as of this encounter
--- OUTSIDE RECORDS SUMMARY | 2025-03-28 16:07 | XMS_ITS | Encounter Summary ---
Author Organization [facility] Address [address] [place] [address] Phone Care Team Providers Care Rescue Worker Name Role Phone Parker Wilder MD Primary Care Provider [phone] Jose Marrero MD Unavailable [phone] Reason for Visit * Reason Comments Medication Refill Encounter Details Date Type Department Care Team (Late st Contact Info) Description 02/28/2024 Refill [facility] - Neurology [facility] [address] [place] [address] Jose Marrero MD [address] [place] [address] Medication Refill Social History Tobacco Use Types Packs/Day Years Used Date Smoking Tobacco: Never Smokeless Tobacco: Never Alcohol Use Standard Drinks/Week Comments Never 0 (1 standard drink = 0.6 oz pur e alcohol) [facility] Utilities Answer Date Recorded In the past 12 months has [employer], gas, oil, or water company threatened to [...] often do you attend chur ch or pentecostalism services? Never 10/11/2023 Do you belong to any clubs o r organizations such as gnosticism groups, unions, fraternal or athletic groups, or [...] and heating? Not hard at all 10/11/2023 [facility] Occupat ional Health [...] place to sleep or slept in a intermediate (including now)? No 10/11/2023 Sexually Active Control Partners Comments Not Currently Female Sex and Gender Information Value Date Recorded Sex Assigned at Male 11/01/2023 2:21 PM GLOVE TAGGER Legal Sex Male 11:21 PM CDT Gender Identity Male 11/01/2023 2:21 PM GLOVE TAGGER Sexual Orientation Straight 11/01/2023 2: 21 PM GLOVE TAGGER documented as of this encounter Miscellaneous Notes [...] Dept 11/02/23 Office Visit Jose Marrero MD [facility] 06/12/23 Office Visit Jose Marrero MD [facility] Neurology [facility] 03/08/23 Office Visit Jose Marrero MD [facility] Neurology [facility] Showing recent visits within past 365 days and meeting all other requirements Future Appointments Date Type Provider Dept 05/05/24 Appointment Jose Marrero MD [facility] Neurology [facility] Showing future appointments within next 90 days and meeting all other requirements documented in this encounter Plan of Treatment Upcoming Encounters Date Type Department Care Team (Late st Contact Info) Description 05/21/2025 2:30 PM CDT Office Visit [facility] - [facility]rology [facility] [address] [place] [address] Jose Marrero MD [address] [place] [address] documented as of this encounter Visit Diagnoses Not on filedocumented in this encounter Care Teams Rescue Worker Relationship Specialty Start Date End Date Parker Wilder MD [address] [place] [address] PCP - General Pediatrics 03/08/23 Jose Marrero MD [address] [place] [address] Consulting Physician Neurology 03/08/23 documented as of this encounter
--- OUTSIDE RECORDS SUMMARY | 2025-03-28 16:08 | XMS_ITS | Clinical Summary ---
Author Organization [facility] - NEUROLOGY [facility] Address [address] [place] [address] Phone Care Team Providers Care Morning Show Producer Name Role Phone Parker Wilder MD Primary Care Provider [phone] Jose Marrero MD Unavailable [phone] Allergies Active Allergy Reactions Criticality Noted Date [...] Take 0.4 mg by mouth daily. Active fludrocortison e (FLORINEF) 0.1 MG Tablet Take 0.2 mg [...] Active polyethylene glycol (GLYCOLAX, MIRALAX) 17 g PackIndication s:Constipation Take 1 Packet by mouth 2 times [...] mouth daily. 90 Tablet 10/12/19 24 Active Droxidopa 200 MG Capsule Take 200 mg by mouth 3 times daily. 270 Capsule 3 09/22/19 25 Active carbidopa-levo dopa (SINEMET) 25-100 MG Tablet TAKE ONE TABLET BY MOUTH THREE TIMES A DAY #1110 90 Tablet 2 03/09/20 25 Active carbidopa-levo dopa (SINEMET) 25-100 MG Tablet TAKE ONE TABLET BY MOUTH THREE TIMES A DAY #1110 90 Tablet 2 12/18/19 25 025 Discontinued Active Problems Problem Noted Date Diagnosed Date Morbid obesity 11/04/2023 Tremor 10/12/2023 Testicular cancer 10/12/2023 Sleep apnea 10/12/2023 Mixed hyperlipidemia 10/12/2023 Hypertension 10/12/2023 Head injury with loss of consciousness Dysthymic disorder 10/12/2023 DM type 2 (diabetes mellitus, type 2) 10/12/2023 Aortic aneurysm 10/12/2023 Acute kidney injury 10/12/2023 Gait disturbance 10/11/2023 Encounters Date Type Department Care Team Description 03/09/2025 [facility] [address] [place] [phone] Jose Marrero MD Medication Refill 01/14/2025 Refill [facility] Neurology [facility] [address] [place] [address] Jose Marrero MD Medication Refill from Last [...] drink = 0.6 oz pur e alcohol) [facility] Utilities Answer Date Recorded In the past 12 months has th e [employer], gas, oil, or water [employer] threatened to shut off services in your [...] often do you attend chur ch or gnosticist services? Never 10/11/2023 Do you belong to any clubs o r organizations such as confucianist groups, unions, fraternal or athletic groups, or [...] and heating? Not hard at all 10/11/2023 [facility] of Occupat ional Health - Occupational Stress [...] place to sleep or slept in a assisted (including now)? No 10/11/2023 Sexually Active Control Partners Comments Not Currently Female Sex and Gender Information Value Date Recorded Sex Assigned at Male 11/01/2023 2:21 PM BRICK SETTER Legal Sex Male 11:21 PM CDT Gender Identity Male 11/01/2023 2:21 PM BRICK SETTER Sexual Orientation Straight 11/01/2023 2: 21 PM BRICK SETTER Last Filed Vital Signs Vital Sign Reading Time Taken Comments Blood Pressure 160/114 11/14/2024 2:18 PM BRICK SETTER Pulse 83 11/14/2024 2:18 PM BRICK SETTER Temperature 36.6 C (97.9 F) 11/14/2024 2:18 PM BRICK SETTER Respiratory Rate 16 11/14/2024 2:18 PM BRICK SETTER Oxygen Saturation 100% 11/14/2024 2:18 PM BRICK SETTER Inhaled Oxygen Concentration - - Weight 98.2 kg (216 lb 8 oz) 11/14/2024 2:18 PM BRICK SETTER Height 177.8 cm (5' 10) 11/14/2024 2:18 PM BRICK SETTER Body Mass Index 31.06 11/14/2024 2:18 PM BRICK SETTER Plan of Treatment Upcoming Encounters Date Type Department Care Team (Late st Contact Info) Description 05/21/2025 2:30 PM CDT Office Visit [facility] - Neurology - [place] [address] [place] [address] Jose Marrero MD [address] [place] [address] Health Maintenance Due Date Last Done Comments Diabetes: Eye Exam 1955 Diabetes: Foot Exam 1955 Hepatitis C Virus (HCV) Screening 1955 Zoster Immunization (1 of 2) 1976 Cologuard 2002 Colonoscopy 2002 Colorectal Cancer Screening 2002 Immunochemical Fecal Occult Blood 2002 PSA Discussion 2012 Pneumococcal Immunization (50+ years) (2 of 2 - PCV) 07/12/2021 07/12/2020 Diabetes: Hemoglobin A1c 04/10/2024 10/11/2023, 03/10 Diabetes: Nephropathy Screening 10/11/2024 10/11/2023 SARS-COV-2 Immunization (7 - Mixed Product risk season) 2025 08/01/2024, 08/13/2023, 07/13/2022, Additional history exists Influenza Immunization (#1) 05/11/202506/10, 06/20/2023, 05/16/2022, Additional history exists DTaP/Tdap/Td Immunization Discontinued 03/06/2011 [...] (COMPREHENSIVE METABOLIC PANEL) STAT 10/11/2023 12:55 PM BRICK SETTER HEMOGLOBIN A1C W/ ESTIMATED GLUCOSE Routine 10/11/2023 12:55 PM BRICK SETTER from Last 3 Months or Most Recently Relevant to Health Maintenance Results * (ABNORMAL) Hemoglobin A1C (if indicated) (10/11/2023 12:55 PM BRICK SETTER) HGB-A1C 8.0(H) 4.0 - 6.0 % 10/12/2023 12:11 AM BRICK SETTER [facility] Est Average Glucose 182.9 mg/dL 10/12/2023 12:11 AM BRICK SETTER [facility] Blood Venipuncture / Unknown 10/11/2023 12:55 PM BRICK SETTER 10/11/2023 1:10 PM BRICK SETTER Narrative [facility] - 10/12/2023 12:11 AM BRICK SETTER HEMOGLOBIN A1C: DIABETIC PATIENTS: WELL-CONTROLLED: 6.2 - 7.0 INTERMEDIATE WELL-CONTROLLED: 7.0 - 9.0 POORLY-CONTROLLED: >9.0 us [place] CEMENT FINISHER, TELEVISION JOURNALIST CHEMISTRY ORDERABLES Fi nal Result [facility] [address] [place] [address] * (ABNORMAL) CMP (Comprehensive Metabolic Panel) (10/11/2023 12:55 PM BRICK SETTER) SODIUM 136 136 - 145 mmol/L 10/11/2023 1:33 PM BRICK SETTER [facility] POTASSIUM 5.5(H) 3.5 - 5.1 mmol/L 10/11/2023 1:33 PM [facility] CHLORIDE 108(H) 98 - 107 mmol/L 10/11/2023 1:33 PM [facility] CO2, VENOUS 20(L) 22 - 30 mmol/L 10/11/2023 1:33 PM [facility] ANION GAP 13.5 <18.0 mmol/L 10/11/2023 1:33 PM [facility] GLUCOSE 297(H) 70 - 99 mg/dL 10/11/2023 1:33 PM [facility] BUN 27(H) 8 - 26 mg/dL 10/11/2023 1:33 PM [facility] CREATININE, BLOOD 1.70(H) 0.70 - 1.30 mg/dL 10/11/2023 1:33 PM [facility] BUN/CREATININE RATIO 16 12 - 20 ratio 10/11/2023 1:33 PM [facility] TOTAL PROTEIN 7.8 6.3 - 8.2 g/dL 10/11/2023 1:33 PM [facility] ALBUMIN 4.3 3.5 - 5.0 g/dL 10/11/2023 1:33 PM [facility] A/G RATIO 1.2 1.0 - 2.2 10/11/2023 1:33 PM [facility] CALCIUM 9.6 8.7 - 10.5 mg/dL 10/11/2023 1:33 PM [facility] T BILI 1.2 0.2 - 1.2 mg/dL 10/11/2023 1:33 PM [facility] SGOT (AST) 17 5 - 34 U/L 10/11/2023 1:33 PM [facility] SGPT (ALT) 6 0 - 55 U/L 10/11/2023 1:33 PM [facility] ALKALINE PHOSPHATASE 88 40 - 150 U/L 10/11/2023 1:33 PM BRICK SETTER [facility] GFR, ESTIMATED 44(L) >=60 10/11/2023 1:33 PM BRICK SETTER [facility] Comment: Creatinine Clearance is the preferred criteria for selecting drug dose adjustments in renally impaired patients. The GFR is provided as additional pertinent clinical information. GFR is reported in mL/min/1.73 sq m. Calculation based on the Chronic Kidney Disease Epidemiology Collaboration (CKD- EPI) equation refit without adjustment for race. GFR, EST. 49(L) >=60 024 1:33 PM BRICK SETTER [facility] GFR, EST. NONAFRICAN 41(L) >=60 10/11/2023 1:33 PM BRICK SETTER [facility] Blood Venipuncture / Unknown 10/11/2023 12:55 PM BRICK SETTER 10/11/2023 1:10 PM BRICK SETTER Tony Chong MD CHEMISTRY ORDERABLES F inal Result [facility] [address] [place] [address] from Last 3 Months or Most Recently [...] measures to stabilize the patient. Care Teams Morning Show Producer Relationship Specialty Start Date End Date Parker Wilder MD [address] [place] [address] PCP - General Pediatrics 03/08/23 Jose Marrero MD [address] [place] [phone] Consulting Physician Neurology 03/08/23
--- OUTSIDE RECORDS SUMMARY | 2025-03-28 16:08 | XMS_ITS | Patient Health Record ---
Author Organization [facility] Address [address] [address] Care Team Providers Care Mig Tig Welder Name Role Phone Scott Fitzpatrick Unavailable [phone] Reason For Referral No Information Plan Of Treatment No Information
--- OUTSIDE RECORDS SUMMARY | 2025-03-28 16:08 | XMS_ITS | Encounter Summary ---
Author Organization [facility] Address [address] [place] [address] Phone Care Team Providers Care Telegraph Equipment Maintainer Name Role Phone Parker Wilder MD Primary Care Provider [phone] Jose Marrero MD Unavailable [phone] Encounter Details Date Type Department Care Team (Late st Contact Info) Description 10/18/2023 Lab Requisition [facility] Services [address] [place] [address] Jose Marrero MD [address] [place] [id number] Hyperkalemia Social History Tobacco Use Types Packs/Day Years Used Date Smoking Tobacco: Never Smokeless Tobacco: Never Alcohol Use Standard Drinks/Week Comments Never 0 (1 standard drink = 0.6 oz pur e alcohol) [facility] Utilities Answer Date Recorded In the past 12 months has This Week In electric, gas, oil, or water company threatened [...] often do you attend chur ch or jewish services? Never 10/11/2023 Do you belong to any clubs o r organizations such as sabianism groups, unions, fraternal or athletic groups, or [...] and heating? Not hard at all 10/11/2023 [facility] - Occupational [...] place to sleep or slept in a long-term (including now)? No 10/11/2023 Sexually Active Control Partners Comments Not Currently Female Sex and Gender Information Value Date Recorded Sex Assigned at Male 11/01/2023 2:21 PM [employer]IOR SPECIALIST Legal Sex Male 11:21 PM CDT Gender Identity Male 11/01/2023 2:21 PM [employer] SENIOR SPECIALIST Sexual Orientation Straight 11/01/2023 2: 21 PM [employer]AL[employer] SENIOR SPECIALIST documented as of this encounter Plan of Treatment Upcoming Encounters Date Type Department Care Team (Late st Contact Info) Description 05/21/2025 2:30 PM CDT [facility] [address] [place] [address] Jose Marrero MD [address] [place] [address] documented as of this encounter Procedures Procedure Name Priority Date/Time Associated Diagnosis Comments CBC WITH AUTO DIFFERENTIAL Routine 10/17/2023 12:00 PM [employer] SENIOR SPECIALIST Hyperkalemia COMPLETE BLOOD COUNT (CBC) WITH DIFF Routine 10/17/2023 12:00 PM [employer] SENIOR SPECIALIST Hyperkalemia BASIC METABOLIC PANEL W/ CALCIUM TOTAL Routine 10/17/2023 12:00 PM [employer] S[employer]IOR [employer]IST Hyperkalemia documented in this encounter Results * (ABNORMAL) CBC WITH AUTO DIFFERENTIAL (10/17/2023 12:00 PM PRESALES SENIOR SPECIALIST) WBC 7.64 4.00 - 12.00 10(3)/mcL 10/18/2023 1:14 PM PRESALES SENIOR SPECIALIST [facility] RBC 4.79 4.40 - 5.80 10(6)/mcL 10/18/2023 1:14 PM [facility] HEMOGLOBIN (HGB) 14.2 13.0 - 16.5 g/dL 10/18/2023 1:14 PM [facility] HEMATOCRIT (HCT) 43.8 38.0 - 50.0 % 10/18/2023 1:14 PM [facility] MCV 91.4 82.0 - 96.0 fL 10/18/2023 1:14 PM [facility] MCH 29.6 26.0 - 32.0 pg 10/18/2023 1:14 PM [facility] MCHC 32.4 31.0 - 36.0 g/dL 10/18/2023 1:14 PM [facility] PLATELET COUNT 253 140 - 440 10(3)/mcL 10/18/2023 1:14 PM [facility] RDW 13.4 11.8 - 15.5 % 10/18/2023 1:14 PM [facility] MPV 11.3 8.0 - 12.6 fL 10/18/2023 1:14 PM [facility] NEUTROPHILS 76.4(H) 40.0 - 68.0 % 10/18/2023 1:14 PM [facility] LYMPHOCYTES 16.0(L) 19.0 - 49.0 % 10/18/2023 1:14 PM [facility] MONOCYTES 6.2 3.0 - 13.0 % 10/18/2023 1:14 PM [facility] EOSINOPHILS 0.9 0.0 - 8.0 % 10/18/2023 1:14 PM [facility] BASOPHILS 0.5 0.0 - 1.0 % 10/18/2023 1:14 PM [facility] ABSOLUTE NEUTROPHILS 5.84(H) 1.40 - 5.30 10(3)/mcL 10/18/2023 1:14 PM [facility] ABSOLUTE LYMPHOCYTES 1.22 0.90 - 3.30 10(3)/mcL 10/18/2023 1:14 PM PRESALES SENIOR SPECIALIST [facility] ABSOLUTE MONOCYTES 0.47 0.10 - 0.90 10(3)/mcL 10/18/2023 1:14 PM PRESALES SENIOR SPECIALIST [facility] ABSOLUTE EOSINOPHIL 0.07 0.00 - 0.50 10(3)/mcL 10/18/2023 1:14 PM PRESALES SENIOR SPECIALIST [facility] ABSOLUTE BASOPHILS 0.04 0.00 - 0.10 10(3)/[facility] 10/18/2023 1:14 PM PRESALES SENIOR SPECIALIST [facility] NRBC PER 100 WBC 0 10/18/19 24 1:14 PM [facility] Blood No Phlebotomy Charged / Unknown 10/17/2023 12:00 PM [employer]IOR SPECIALIST 10/18/2023 1:07 PM [employer]AL[employer] SENIOR SPECIALIST Jose Marrero MD HEMATOLOGY ORDERABLES Final Result [facility] [address] [place] [address] * (ABNORMAL) BASIC METABOLIC PANEL W/ CALCIUM TOTAL (10/17/2023 12:00 PM PRESALES SENIOR SPECIALIST) SODIUM 141 136 - 145 mmol/L 10/18/2023 1:30 PM [facility] POTASSIUM 4.6 3.5 - 5.1 mmol/L 10/18/2023 1:30 PM [facility] CHLORIDE 109(H) 98 - 107 mmol/L 10/18/2023 1:30 PM [facility] CO2, VENOUS 23 22 - 30 mmol/L 10/18/2023 1:30 PM [facility] ANION GAP 13.6 <18.0 mmol/L 10/18/2023 1:30 PM [facility] GLUCOSE 203(H) 70 - 99 mg/dL 10/18/2023 1:30 PM [facility] BUN 21 8 - 26 mg/dL 10/18/2023 1:30 PM PRESALES SENIOR SPECIALIST [facility] CREATININE, BLOOD 1.45(H) 0.70 - 1.30 mg/dL 10/18/2023 1:30 PM PRESALES SENIOR SPECIALIST [facility] BUN/CREATININE RATIO 14 12 - 20 ratio 10/18/2023 1:30 PM PRESALES SENIOR SPECIALIST [facility] CALCIUM 9.1 8.7 - 10.5 mg/dL 10/18/2023 1:30 PM PRESALES SENIOR SPECIALIST [facility] GFR, ESTIMATED 53(L) >=60 10/18/2023 1:30 PM PRESALES SENIOR SPECIALIST [facility] Comment: Creatinine Clearance is the preferred criteria for selecting drug dose adjustments in renally impaired patients. The GFR is provided as additional pertinent clinical information. GFR is reported in mL/min/1.73 sq m. Calculation based on the Chronic Kidney Disease Epidemiology Collaboration (CKD- EPI) equation refit without adjustment for race. GFR, EST. 59(L) >=60 024 1:30 PM PRESALES SENIOR SPECIALIST [facility] GFR, EST. NONAFRICAN 49(L) >=60 10/18/2023 1:30 PM PRESALES SENIOR SPECIALIST [facility] Blood No Phlebotomy Charged / Unknown 10/17/2023 12:00 PM PRESALES SENIOR SPECIALIST 10/18/2023 1:07 PM PRESALES SENIOR SPECIALIST us Jose Marrero MD CHEMISTRY ORDERABLES Final R esult [facility] [address] [place] [address] documented in this encounter Visit Diagnoses Diagnosis Hyperkalemia Hyperpotassemia documented in this encounter Care Teams Telegraph Equipment Maintainer Relationship Specialty Start Date End Date Parker Wilder MD [address] [place] [address] PCP - General Pediatrics 03/08/23 Jose Marrero MD [address] [place] [address] Consulting Physician Neurology 03/08/23 documented as of this encounter
--- OUTSIDE RECORDS SUMMARY | 2025-03-28 16:08 | XMS_ITS | Clinical Summary ---
Author Organization [facility] Address [facility] [place] [address] Care Team Providers Care Label Cutter Name Role Phone Parker Wilder MD Primary Care Provider [phone] Allergies Active Allergy Reactions Criticality Noted Date [...] 05/20/2019 Mixed hyperlipidemia Benign essential HTN Diabetes ([facility]) Dizziness Back pain Syncope Major [...] 9:25 AM CDT Height 177.8 cm (5' 10) 05/05/2021 9:25 AM CDT Body Mass Index [...] Health Maintenance Insurance MEDICARE MEDICARE Care Teams Label Cutter Relationship Specialty Start Date End Date Parker Wilder MD [address] [phone] PCP - General FAMILY PRACTICE 12/27/18
--- NOTE | 2025-03-28 16:11 | ED.SYNCOPE ---
HPI - Syncope General Chief Complaint: Syncope Stated Complaint: near syncope Time Seen by Provider: 03/28/25 16:07 Source: patient Mode of arrival: wheelchair Limitations: no limitations History of Present Illness HPI narrative: 69 year old male arrives to the Emergency Department in a wheelchair being pushed by Dr. Wilder [his PCP]. Patient had [place] Patient states he has had this problem for years. Denies headache, chest pain, shortness of breath, palpitations. Denies visual changes. No recent illness like vomiting or diarrhea. Denies urinary tract symptoms. Urinating normal amount. States he has orthostatic blood pressure changes with change in position for years. Patient has Parkinson's. MD complaint: almost passed out -: second(s) Prodromal symptoms: none Witnessed: Yes - by Other Injuries sustained associated with event: none Current symptoms: none History: previous syncopal episode (near) Treatments prior to arrival: none Related Data Home Medications ?Medication ?Instructions ?Recorded ?Confirmed ?Last Taken ?Type bupropion HCl 300 mg 24 hr tablet, 300 mg PO QAM 06/19/22 02/16/25 Unknown History extended release metformin 500 mg tablet 500 mg PO BID 01/24/23 02/16/25 Unknown History carbidopa 25 mg-levodopa 100 mg 1 tablet PO DAILY 03/14/23 02/16/25 Unknown History tablet venlafaxine 75 mg capsule,extended 75 mg PO DAILY 02/16/25 02/16/25 Unknown History release 24 hr Allergies Allergy/AdvReac Type Severity Reaction Status Date / Time povidone-iodine (From Allergy Rash Verified 03/28/25 16:06 Betadine) Review of Systems Review of Systems: All systems reviewed & are unremarkable except as noted in HPI and below Constitutional: Constitutional: Reports as per HPI, Denies chills, Denies fatigue, Denies fever(s) and Denies weakness Eyes: Eyes: Reports as per HPI and Denies change in vision ENT: Reports system reviewed and no additional complaints, except as documented, Reports dizziness, Denies nasal congestion and Denies sore throat Cardiovascular: Cardiovascular: Reports as per HPI, Denies chest pain, Denies rapid heart rate and Denies slow heart rate Respiratory: Respiratory: Reports as per HPI, Denies no additional respiratory complaints, Denies chest congestion, Denies cough and Denies dyspnea Gastrointestinal: Gastrointestinal: Reports as per HPI, Denies abdominal pain, Denies diarrhea, Denies nausea and Denies vomiting Genitourinary: Genitourinary: Reports no additional male genitourinary complaints, Denies oliguria, Denies dysuria and Denies urinary frequency Musculoskeletal: Musculoskeletal: Reports no additional musculoskeletal complaints, Denies back pain, Denies myalgias and Denies arthralgias Integumentary/Breasts: Skin/Breast: Reports system reviewed and no additional complaints, except as docu and Denies rash Neurologic: Reports system reviewed and no additional complaints, except as documented, Denies confusion, Reports dizziness, Denies syncope, Denies headache(s), Denies focal weakness, Denies numbness and Denies weakness Psychiatric: Psychiatric: Reports no additional psychiatric complaints Endocrine: Endocrine: Reports no additional endocrine complaints Hematologic/Lymphatic: Hematologic/Lymphatic: Reports no additional hematologic/lymphatic complaints Allergic/Immunologic: Allergic/Immunologic: Reports no additional allergic/immunologic complaints PMFSH Past Medical History Medical History Tremor Mixed hyperlipidemia Orthostatic hypotension Testicular cancer Depression Diabetes mellitus Hypertension initial test 2014, declined CPAP Obstructive sleep apnea (~07/2021) Surgical History Surgical History History of inguinal hernia repair Status post orchiectomy 1979 Family History Family History Father Diabetes mellitus Social History Social History Smoking status: Never smoker Second hand tobacco smoke exposure: Yes Alcohol intake: never Substance use: never Substance use type: does not use Do You Feel Safe in your Home?: Yes Lack of Transportation: No Lack of Food: Never True Current Housing: I Have Housing Concerned About Future Housing: No Difficulty Paying Gas/Electric Bills: No Difficulty Paying for Meds: No Currently Unemployed: No Education: Bachelor's Degree Difficulty w/ Childcare or Family Care: No Spiritual care concerns: No Exam Const: General: healthy appearing, no acute distress, alert, confusion, diaphoretic and ill appearing Nutritional Appearance: well nourished Orientation/consciousness: patient oriented x3 Limitations: no limitations HENMT: Head: normal to inspection Ears: external ears normal Face/Nose/Sinus: Normal external nose present Face and sinus: normal facial exam Mouth: Yes Normal oral and palatal mucosa present Teeth and gingiva: dentition normal Throat: posterior oropharynx normal Eyes: Conjunctivae: conjunctivae normal Pupils: Equal, round and reactive pupils present EOM: EOMs intact bilaterally Direct Ophthalmoscopy: no photophobia Neck: Neck: normal visual inspection and no meningeal signs Other: no JVD Chest: Chest palpation & inspection: normal inspection of the chest Resp: Effort & Inspection: normal respiratory effort Auscultation: clear to auscultation bilaterally Cardio: Rate: regular rate Rhythm: regular rhythm Heart sounds: no murmurs GI: Inspection: non-distended GI Palp: Yes Soft to palpation, No Tenderness to palpation present (GI) and No Palpable mass present : General: Yes bladder normal to palpation Back/Spine/Pelvis: Back: no CVA tenderness Skin: General skin exam: normal color Rashes: no rashes Wounds: no wounds Neuro: General: patient oriented x3, moves all extremities, no meningeal signs, no focal motor deficits and CN's II-XI intact bilaterally Cranial nerves: Yes Nystagmus not present Speech: normal speech Other: Parkinson's resting tremor Extrem: General: normal to inspection and no clubbing, cyanosis or edema Psych: Mental Status: mental status grossly normal Course Vital Signs Vital signs: Vital Signs Temperature 36.7 C 03/28/25 16:06 Pulse Rate 89 03/28/25 16:06 Respiratory Rate 18 03/28/25 16:06 Blood Pressure 101/88 03/28/25 16:06 Pulse Oximetry 92 03/28/25 16:06 Oxygen Delivery Room Air 03/28/25 16:06 Temperature 36.7 C 03/28/25 16:06 Pulse Rate 79 03/28/25 19:00 Respiratory Rate 16 03/28/25 19:00 Blood Pressure 147/99 H 03/28/25 19:00 Pulse Oximetry 100 03/28/25 19:00 Oxygen Delivery Room Air 03/28/25 19:00 MDM - Syncope MDM Narrative Medical decision making narrative: 69 y/o male is brought to the ED by wheelchair, by PCP. Patient was visiting at [place] and had near syncope. Patient states he has had similar episodes for years. He has history of orthostatic hypotension. He has a history of Parkinson's. He denies any symptoms at this time. PE; resting Parkinson's tremor, o/w no acute findings *discussed at length with patient. Patient does not wish to have a w/u at this time. Instructions Patient standing at counter being discharged and stated he was starting to feel dizzy /light headed again. Patient placed back in room and he agrees to workup at this time. He denies chest pain, shortness of breath, palpitation, pain anywhere. Orthostatics: [lay] 147/103 (79), [sit] 122/87 (81), [sitting with legs handing] 117/88 (83) Repeat Orthostatics [after 1 L]: [lay] 131/81 (76), [sit] 118/92 (79), [stand] 90/63 (86) CBC: H/H 14/42.6, Plt 201; wbc 6.9 with 70 S, 23 L, 6 M CMP: Na 140, K 4.3, Cl 107, CO2 24, Glc 116, BUN 20, Cr 1.53; LFT's normal TNI: <0.012 EKG: NSR, 81, quadrigeminy, NAC Lactic: 1.9 M.9 UA: PCXR: L basilar atelectasis /scarring CT Head: no acute intracranial findings. Layering in R max sinus suspicious for blood and possible facial fx Tx: groundwater monitoring technician, pulse ox, NS 1 L IV. NS 250 cc/hr *reviewed and discussed results with patient. Patient continues to have orthostatic changes, quadrigeminy. Recommended observation admit. patient refuses. Nurses also tried to convince patient to stay observation, but he continues to refuse. I personally explained to the patient the risks and consequences involved in leaving this facility at this time. The risks are discussed and include, but not limited to falling, injury from fall, , permanent disability, loss of lifestyle, psychological deterioration. The benefits of continued treatment and hospitalization were explained. Patient has no signs of psychosis or mental illness that would interfere with making an informed decision. Patient continues to refuse admission. Lab Data 03/28/25 16:51 03/28/25 16:51 Labs: Lab Results 03/28/25 Range/Units 16:51 WBC 6.9 (4.8-10.8) K/mm3 RBC 4.81 (4.70-6.10) M/mm3 Hgb 14.0 (12.4-15.3) g/dL Hct 42.6 (37.0-46.0) % MCV 88.6 (78.0-102.0) fL MCH 29.1 (27.0-31.0) pg MCHC 32.9 (32-36) g/dL RDW 12.5 (11.6-14.4) % Plt Count 201 (150-420) K/mm3 MPV 11.6 H (8.7-11.0) fl Immature Gran % (Auto) 0.3 H (0.0-0.0) % Neut % (Auto) 69.7 (50.0-70.0) % Lymph % (Auto) 22.9 (18.0-42.0) % [place] % (Auto) 6.1 (2.0-11.0) % Eos % (Auto) 0.6 L (1.0-6.0) % Baso % (Auto) 0.4 (0.0-1.0) % Lymph # (Auto) 1.58 (1.10-4.50) K/mm3 [place] # (Auto) 0.42 (0.10-0.90) K/mm3 Eos # (Auto) 0.04 (0.02-0.50) K/mm3 Baso # (Auto) 0.03 (0.00-0.10) K/mm3 Abs Immat Gran (auto) 0.02 H (0.00-0.00) K/mm3 Absolute Neuts (auto) 4.82 (1.70-7.20) K/mm3 Absolute Nucleated RBC 0.00 (0.00-0.00) K/mm3 Nucleated RBC % 0.0 (0-0.0) % Sodium 140 (137-145) mmol/L Potassium 4.3 (3.4-5.0) mmol/L Chloride 107 (98-107) mmol/L Carbon Dioxide 24 (22-30) mmol/L Anion Gap 9 (4-12) mmol/L BUN 20 (9-20) mg/dL Creatinine 1.53 H (0.7-1.3) mg/dL Estim Creat Clear Calc 44 ml/min Estimated GFR 46 L (59 - ) Glucose 116 H (65-110) mg/dL Calculated Osmolality 293 (285-295) mOsm/kg Lactic Acid 1.9 (0.4-2.0) mmol/L Calcium 8.9 (8.4-10.2) mg/dL Magnesium 1.9 (1.6-2.3) mg/dL Total Bilirubin 1.7 H (0.2-1.3) mg/dL AST 26 (17-59) U/L ALT 18 (6-50) U/L Alkaline Phosphatase 76 (38-126) U/L Troponin I < 0.012 (0.000-0.034) ng/mL Total Protein 6.8 (6.3-8.2) g/dL Albumin 4.1 (3.5-5.1) g/dL Discharge Plan Discharge Clinical Impression: Near syncope, Orthostatic hypotension, Parkinson disease, Fracture of right maxillary sinus, Ventricular quadrigeminy Patient Disposition: Left Against Medical Advice Condition: Guarded Prognosis Instructions: Parkinson Disease (ED), Syncope (ED), Hypotension (ED), Near Syncope (ED) Additional Instructions: Continue home medications Change positions slowly to allow your body to compensate your blood pressure Take appropriate precautions against falling Follow up Primary Care Physician Return as needed Patient Language: Uzbek Prescriptions: No Action metformin 500 mg tablet 500 mg PO BID carbidopa-levodopa 25-100 mg tablet 1 tablet PO DAILY bupropion HCl 300 mg tablet extended release 24 hr 300 mg PO QAM venlafaxine 75 mg capsule,extended release 24hr 75 mg PO DAILY potassium chloride 10 mEq tablet extended release 10 meq PO BID Qty: 60 5RF carvedilol 6.25 mg tablet See Rx Instructions .ROUTE .COMPLEX Qty: 180 2RF Dose Instruction: TAKE ONE TABLET BY MOUTH TWICE A DAY #1010 Rx Instructions: TAKE ONE TABLET BY MOUTH TWICE A DAY #1010 losartan 100 mg tablet See Rx Instructions .ROUTE .COMPLEX Qty: 90 2RF Dose Instruction: TAKE ONE TABLET BY MOUTH DAILY #1000 Rx Instructions: TAKE ONE TABLET BY MOUTH DAILY #1000 tamsulosin 0.4 mg capsule See Rx Instructions .ROUTE .COMPLEX Qty: 30 2RF Dose Instruction: TAKE ONE CAPSULE BY MOUTH DAILY #1000 Rx Instructions: TAKE ONE CAPSULE BY MOUTH DAILY #1000 venlafaxine 150 mg capsule,extended release 24hr See Rx Instructions .ROUTE .COMPLEX Qty: 30 0RF Dose Instruction: TAKE ONE CAPSULE BY MOUTH DAILY #1000 Rx Instructions: TAKE ONE CAPSULE BY MOUTH DAILY #1000 fludrocortisone 0.1 mg tablet See Rx Instructions .ROUTE .COMPLEX Qty: 90 2RF Dose Instruction: TAKE ONE TABLET BY MOUTH THREE TIMES A DAY #1110 Rx Instructions: TAKE ONE TABLET BY MOUTH THREE TIMES A DAY #1110 atorvastatin 20 mg tablet See Rx Instructions .ROUTE .COMPLEX Qty: 90 2RF Dose Instruction: TAKE ONE TABLET BY MOUTH DAILY #0010 Rx Instructions: TAKE ONE TABLET BY MOUTH DAILY #0010 Follow-up/Referrals: Parker Wilder MD [Primary Care Provider] - Time of Disposition: 19:49
--- NOTE | 2025-03-28 16:46 | ECG_ITS ---
Test Date: 2025-03-28 16:56:46 Measurements Intervals [place] Rate: 81 P: 24 NH: 170 QRS: -22 QRSD: 112 T: 43 QT: 397 QTc: 461 Interpretive Statements SINUS RHYTHM WITH FREQUENT VENTRICULAR PREMATURE COMPLEXES BORDERLINE LEFT AXIS DEVIATION [QRS AXIS < -20] NONSPECIFIC T-WAVE ABNORMALITY ABNORMAL RHYTHM ECG Compared to ECG 06/11/2024 15:27:34 Ventricular premature complex(es) now present T-wave abnormality still present Electronically Signed On 03-30-2025 10:42:23 CDT by Michelet Moreno M.D.
--- NOTE | 2025-03-28 16:48 | PC.NURSE ---
Lab at bedside, and PCT obtaining EKG
[2025-03-28 16:59] LABS: Hematocrit 42.6 % (37.0-46.0); Hemoglobin 14.0 g/dL (12.4-15.3); Immature Granulocyte Percent A 0.3 % (0.0-0.0); Lymphocytes Absolute Auto 1.58 K/mm3 (1.10-4.50); Mean Corpuscular HGB Conc 32.9 g/dL (32-36); Mean Corpuscular Hemoglobin 29.1 pg (27.0-31.0); Mean Corpuscular Volume 88.6 fL (78.0-102.0); Nucleated Red Blood Cells Absolute Auto 0.00 K/mm3 (0.00-0.00); Nucleated Red Blood Cells Perc 0.0 % (0-0.0); Platelet Count Result 201 K/mm3 (150-420); Red Blood Count 4.81 M/mm3 (4.70-6.10); White Blood Count 6.9 K/mm3 (4.8-10.8)
[2025-03-28] MEDS: SODIUM CHLORIDE 0.9% IV 1,000 ML 999 ML IV CONT (17:00)
--- NOTE | 2025-03-28 17:06 | PC.NURSE ---
Patient taken down to radiology
[2025-03-28 17:08] LABS: Alanine Aminotransferase 18 U/L (6-50); Albumin Level 4.1 g/dL (3.5-5.1); Alkaline Phosphatase 76 U/L (38-126); Anion Gap 9 mmol/L (4-12); Aspartate Amino Transferase 26 U/L (17-59); Bilirubin,Total 1.7 mg/dL (0.2-1.3); Blood Urea Nitrogen 20 mg/dL (9-20); Calcium 8.9 mg/dL (8.4-10.2); Carbon Dioxide 24 mmol/L (22-30); Chloride 107 mmol/L (98-107); Estimated CRCL calculation 44 ml/min; Estimated Glomerular Filt Rate 46; Glucose 116 mg/dL (65-110); Magnesium 1.9 mg/dL (1.6-2.3); Osmolality Calculated 293 mOsm/kg (285-295); Potassium 4.3 mmol/L (3.4-5.0); Sodium 140 mmol/L (137-145); Total Protein 6.8 g/dL (6.3-8.2)
[2025-03-28 17:20] LABS: Troponin I < 0.012 ng/mL (0.000-0.034)
[2025-03-28] MEDS: SODIUM CHLORIDE 0.9% IV 1,000 ML 250 ML IV CONT (18:23)
== END 2025-03-28 20:03 | disposition left against medical advice (07) ==
PROVIDERS: Emergency Provider Emergency Medicine; PCP Family Medicine
DX: I95.1 Orthostatic hypotension (principal); S02.40CA Maxillary fracture, right side, initial encounter for closed fracture; I49.3 Ventricular premature depolarization; G20.A1 Parkinson's disease without dyskinesia, without mention of fluctuations; E78.2 Mixed hyperlipidemia; E11.9 Type 2 diabetes mellitus without complications; I10 Essential (primary) hypertension; Z85.47 Personal history of malignant neoplasm of testis; X58.XXXA Exposure to other specified factors, initial encounter
CPT/HCPCS: 36415; 70450; 70486; 71045; 80053; 83605; 83735; 84484; 85025; 93005; 96360; 96361; 99284; J7030

== ENCOUNTER 2025-03-31 16:36 | Emergency (ER) | payer MEDICARE, SELFPAY ==
[2025-03-31] VITALS (13 sets, daily range): BP systolic 146–155; BP diastolic 77–98; PULSE 81–100; RESP 16–20; TEMP 36.4–37.2; O2SAT 93–100
--- NOTE | ~2025-03-31 | CT_ITS ---
EXAMINATION: CT brain wo con DATE: 03/31/2025 17:06 INDICATION: syncope . TECHNIQUE: Computed tomography (CT) of the head was performed without intravenous contrast. The mA wa s adjusted according to patient size. Iterative reconstruction technique was employed. The dose-lengt h product was 605.33 mGy-cm. COMPARISON: 03/28/2025 CT brain and facial bones. FINDINGS: No acute intracranial hemorrhage or extra-axial fluid collection. No hydrocephalus, mass, or herniation. No acute ischemic infarct. Unremarkable dural venous sinus attenuation. No acute osseous abnormality. Right maxillary sinus air-fluid level is hyperdense fluid, the remaining aerated spaces are clear. Mild atrophy and chronic white matter change. Atherosclerotic intracranial calcification. Bilateral l ens replacements. IMPRESSION: No acute intracranial process. No significant interval change from examination performed yesterday. Unchanged right maxillary sinus hemorrhage. Reviewed, dictated and finalized at location K.
--- NOTE | 2025-03-31 16:42 | ECG_ITS ---
Test Date: 2025-03-31 16:58:34 Measurements Intervals [place] Rate: 96 P: 49 AR: 195 QRS: -5 QRSD: 105 T: 52 QT: 370 QTc: 469 Interpretive Statements SINUS RHYTHM NONSPECIFIC ST ABNORMALITY ABNORMAL ECG Electronically Signed On 04-01-2025 10:12:10 CDT by Mickey Conde M.D.
--- OUTSIDE RECORDS SUMMARY | 2025-03-31 16:43 | XMS_ITS | Encounter Summary ---
Author Organization [facility] Address [address] [place] [address] Phone Care Team Providers Care Hospital Manager Name Role Phone Parker Wilder MD Primary Care Provider [phone] Jose Marrero MD Unavailable [phone] Reason for Visit * Reason Comments Medication Refill Encounter Details Date Type Department Care Team (Late st Contact Info) Description 01/14/2025 Refill [facility] - Neurology [facility] [address] [place] [address] Jose Marrero MD [address] [place] [address] Medication Refill Social History Tobacco Use Types Packs/Day Years Used Date Smoking Tobacco: Never Smokeless Tobacco: Never Alcohol Use Standard Drinks/Week Comments Never 0 (1 standard drink = 0.6 oz pur e alcohol) [facility] Utilities Answer Date Recorded In the past 12 months has [employer], gas, oil, or water company threatened to [...] often do you attend chur ch or mu-ism services? Never 10/11/2023 Do you belong to [...] and heating? 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 Legal Sex Male 11:21 PM CDT Gender Identity Male 11/01/2023 2:21 PM CYBER SECURITY MANAGER Sexual Orientation Straight 11/01/2023 2: 21 PM CYBER SECURITY MANAGER documented as of this encounter Plan of Treatment Upcoming Encounters Date Type Department Care Team (Late st Contact Info) Description 05/21/2025 2:30 PM CDT Office Visit [facility] - Neurology [facility] [address] [place] [phone] Jose Marrero MD [address] [place] [address] documented as of this encounter Visit Diagnoses Not on filedocumented in this encounter Care Teams Hospital Manager Relationship Specialty Start Date End Date Parker Wilder MD [address] [place] [address] PCP - General Pediatrics 03/08/23 Jose Marrero MD [address] [place] [phone] Consulting Physician Neurology 03/08/23 documented as of this encounter
--- OUTSIDE RECORDS SUMMARY | 2025-03-31 16:43 | XMS_ITS | Encounter Summary ---
Author Organization [facility] Address [address] [place] [address] Phone Care Team Providers Care Roustabout Crew Name Role Phone Parker Wilder MD Primary Care Provider [phone] Jose Marrero MD Unavailable [phone] Reason for Visit * Reason Comments Medication Refill Encounter Details Date Type Department Care Team (Late st Contact Info) Description 02/28/2024 Refill [facility] - Neurology [facility] [address] [place] [address] Jose Marrero MD [address] [place] [address] Medication Refill Social History Tobacco Use Types Packs/Day Years Used Date Smoking Tobacco: Never Smokeless Tobacco: Never Alcohol Use Standard Drinks/Week Comments Never 0 (1 standard drink = 0.6 oz pur e alcohol) [facility] Utilities Answer Date Recorded In the past 12 months has [employer], gas, oil, or water company threatened to [...] any clubs o r organizations such as sabianist groups, unions, fraternal or athletic groups, or [...] and heating? Not hard at all 10/11/2023 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 FINANCIAL COUNSELOR Sexual Orientation Straight 11/01/2023 2: 21 PM PERSONAL FINANCIAL COUNSELOR documented as of this encounter Miscellaneous Notes [...] Dept 11/02/23 Office Visit Jose Marrero [place] [facility] [place] [facility] 06/12/23 Office Visit Jose Marrero [place] [facility] [place] [facility] 03/08/23 Office Visit Jose Marrero MD [facility] [place] [facility] Showing recent visits within past 365 days and meeting all other requirements Future Appointments Date Type Provider Dept 05/05/24 Appointment Jose Marrero MD [facility] [place] [facility] Showing future appointments within next 90 days and meeting all other requirements documented in this encounter Plan of Treatment Upcoming Encounters Date Type Department Care Team (Late st Contact Info) Description 05/21/2025 2:30 PM CDT Office Visit [facility] - Neurology [facility] [address] [place] [address] Jose Marrero MD [address] [place] [address] documented as of this encounter Visit Diagnoses Not on filedocumented in this encounter Care Teams Roustabout Crew Relationship Specialty Start Date End Date Parker Wilder MD [address] [place] [address] PCP - General Pediatrics 03/08/23 Jose Marrero MD [address] [place] [address] Consulting Physician Neurology 03/08/23 documented as of this encounter
--- OUTSIDE RECORDS SUMMARY | 2025-03-31 16:44 | XMS_ITS | Clinical Summary ---
Author Organization [facility] - NEUROLOGY [facility] Address [address] [place] [address] Phone Care Team Providers Care Software Publisher Name Role Phone Parker Wilder MD Primary Care Provider [phone] Jose Marrero MD Unavailable [phone] Allergies Active Allergy Reactions Criticality Noted Date [...] Type Department Care Team Description 03/09/20[facility] [address] [place] [phone] Jose Marrero MD Medication Refill 01/14/2025 Refill [facility] [address] [place] [address] Jose Marrero MD Medication Refill [...] drink = 0.6 oz pur e alcohol) [facility] Utilities Answer Date Recorded In the past 12 months has th e [employer], gas, oil, or water [employer] threatened to shut off services in your [...] often do you attend chur ch or christian services? Never 10/11/2023 Do you belong to any clubs o r organizations such as quaker groups, unions, fraternal or athletic groups, or [...] and heating? Not hard at all 10/11/2023 [facility] of Occupat ional Health - Occupational Stress [...] place to sleep or slept in a usp (including now)? No 10/11/2023 Sexually Active Control Partners Comments Not Currently Female Sex and Gender Information Value Date Recorded Sex Assigned at Male 11/01/2023 2:21 PM PRESIDENT FINANCIAL INSTITUTION Legal Sex Male 11:21 PM CDT Gender Identity Male 11/01/2023 2:21 PM PRESIDENT FINANCIAL INSTITUTION Sexual Orientation Straight 11/01/2023 2: 21 PM PRESIDENT FINANCIAL INSTITUTION Last Filed Vital Signs Vital Sign Reading Time Taken Comments Blood Pressure 160/114 11/14/2024 2:18 PM [employer] [employer] [facility]UTION Pulse 83 11/14/2024 2:18 PM [employer] INSTITUTION Temperature 36.6 C (97.9 F) 11/14/2024 2:18 PM [employer] INSTITUTION Respiratory Rate 16 11/14/2024 2:18 PM PRESIDENT [employer]ANCIAL INSTITUTION Oxygen Saturation 100% 11/14/2024 2:18 PM [employer] [employer] INSTITUTION Inhaled Oxygen Concentration - - Weight 98.2 kg (216 lb 8 oz) 11/14/2024 2:18 PM [facility] Height 177.8 cm (5' 10) 11/14/2024 2:18 PM [facility] IN[facility]UTION Body Mass Index 31.06 11/14/2024 2:18 PM PRESIDENT FINANCIAL INSTITUTION Plan of Treatment Upcoming Encounters Date Type Department Care Team (Late st Contact Info) Description 05/21/2025 2:30 PM CDT Office Visit [facility] - Neurology - [place] [address] [place] [address] Jose Marrero MD [address] [place] [address] Health Maintenance Due Date Last Done Comments [...] (COMPREHENSIVE METABOLIC PANEL) STAT 10/11/2023 12:55 PM [facility] IN[facility]UTION HEMOGLOBIN A1C W/ ESTIMATED GLUCOSE Routine 10/11/2023 12:55 PM [facility]UTION from Last 3 Months or Most Recently Relevant to Health Maintenance Results * (ABNORMAL) Hemoglobin A1C (if indicated) (10/11/2023 12:55 PM [facility]) HGB-A1C 8.0(H) 4.0 - 6.0 % 10/12/2023 12:11 AM PRESIDENT [facility]CIAL INSTITUTION [facility] Est Average Glucose 182.9 mg/dL 10/12/2023 12:11 AM [facility] INSTITUTION [facility] Blood Venipuncture / Unknown 10/11/2023 12:55 PM [facility] INSTITUTION 10/11/2023 1:10 PM [facility] INSTITUTION Narrative [facility] - 10/12/2023 12:11 AM [facility] HEMOGLOBIN A1C: DIABETIC PATIENTS: WELL-CONTROLLED: 6.2 - 7.0 INTERMEDIATE WELL-CONTROLLED: 7.0 - 9.0 POORLY-CONTROLLED: >9.0 us [place] VOICE PATHOLOGIST, PARTS ADVISOR CHEMISTRY ORDERABLES Fi nal Result [facility] [address] [place] [address] * (ABNORMAL) CMP (Comprehensive Metabolic Panel) (10/11/2023 12:55 PM PRES[facility] INSTITUTION) SODIUM 136 136 - 145 mmol/L 10/11/2023 1:33 PM PRESIDENT FINANCIAL INSTITUTION [facility] POTASSIUM 5.5(H) 3.5 - 5.1 mmol/L 10/11/2023 1:33 PM [facility] CHLORIDE 108(H) 98 - 107 mmol/L 10/11/2023 1:33 PM [facility] CO2, VENOUS 20(L) 22 - 30 mmol/L 10/11/2023 1:33 PM [facility] ANION GAP 13.5 <18.0 mmol/L 10/11/2023 1:33 PM [facility] GLUCOSE 297(H) 70 - 99 mg/dL 10/11/2023 1:33 PM [facility] BUN 27(H) 8 - 26 mg/dL 10/11/2023 1:33 PM [facility] CREATININE, BLOOD 1.70(H) 0.70 - 1.30 mg/dL 10/11/2023 1:33 PM [facility] BUN/CREATININE RATIO 16 12 - 20 ratio 10/11/2023 1:33 PM [facility] TOTAL PROTEIN 7.8 6.3 - 8.2 g/dL 10/11/2023 1:33 PM [facility] ALBUMIN 4.3 3.5 - 5.0 g/dL 10/11/2023 1:33 PM [facility] A/G RATIO 1.2 1.0 - 2.2 10/11/2023 1:33 PM [facility] CALCIUM 9.6 8.7 - 10.5 mg/dL 10/11/2023 1:33 PM [facility] T BILI 1.2 0.2 - 1.2 mg/dL 10/11/2023 1:33 PM [facility] SGOT (AST) 17 5 - 34 U/L 10/11/2023 1:33 PM [facility] SGPT (ALT) 6 0 - 55 U/L 10/11/2023 1:33 PM [facility] ALKALINE PHOSPHATASE 88 40 - 150 U/L 10/11/2023 1:33 PM PRESIDENT FINANCIAL INSTITUTION [facility] GFR, ESTIMATED 44(L) >=60 10/11/2023 1:33 PM PRESIDENT FINANCIAL INSTITUTION [facility] Comment: Creatinine Clearance is the preferred criteria for selecting drug dose adjustments in renally impaired patients. The GFR is provided as additional pertinent clinical information. GFR is reported in mL/min/1.73 sq m. Calculation based on the Chronic Kidney Disease Epidemiology Collaboration (CKD- EPI) equation refit without adjustment for race. GFR, EST. 49(L) >=60 024 1:33 PM PRESIDENT FINANCIAL INSTITUTION [facility] GFR, EST. NONAFRICAN 41(L) >=60 10/11/2023 1:33 PM PRESIDENT FINANCIAL INSTITUTION [facility] Blood Venipuncture / Unknown 10/11/2023 12:55 PM PRESIDENT FINANCIAL INSTITUTION 10/11/2023 1:10 PM PRESIDENT FINANCIAL INSTITUTION Tony Chong MD CHEMISTRY ORDERABLES F inal Result [facility] [address] [place] [address] from Last 3 Months or Most Recently [...] measures to stabilize the patient. Care Teams Software Publisher Relationship Specialty Start Date End Date Parker Wilder MD [address] [place] [address] PCP - General Pediatrics 03/08/23 Jose Marrero MD [address] [place] [phone] Consulting Physician Neurology 03/08/23
--- OUTSIDE RECORDS SUMMARY | 2025-03-31 16:44 | XMS_ITS | Patient Health Record ---
Author Organization [facility] [employer] Address [address] [address] Care Team Providers Care Metal Polisher And Buffer Apprentice Name Role Phone Scott Fitzpatrick Unavailable [phone] Reason For Referral No Information Plan Of Treatment No Information
--- OUTSIDE RECORDS SUMMARY | 2025-03-31 16:44 | XMS_ITS | Clinical Summary ---
Author Organization [facility] Address [facility] [place] [address] Care Team Providers Care Rv Repair Technician Name Role Phone Parker Wilder MD Primary Care Provider [phone] Allergies Active Allergy Reactions Criticality Noted Date [...] 05/20/2019 Mixed hyperlipidemia Benign essential HTN Diabetes ([facility]) Dizziness Back pain Syncope Major depressive disorder [...] Health Maintenance Insurance MEDICARE MEDICARE Care Teams Rv Repair Technician Relationship Specialty Start Date End Date Parker Wiledr MD [address] [id number] PCP - General FAMILY PRACTICE 12/27/18
--- OUTSIDE RECORDS SUMMARY | 2025-03-31 16:44 | XMS_ITS | Encounter Summary ---
Author Organization [facility] Address [address] [place] [address] Phone Care Team Providers Care Finisher Screwdown Name Role Phone Parker Wilder MD Primary Care Provider [phone] Jose Marrero MD Unavailable [phone] Encounter Details Date Type Department Care Team (Late st Contact Info) Description 10/18/2023 Lab Requisition [facility] [address] [place] [address] Jose Marrero MD [address] [place] [address] Hyperkalemia Social History Tobacco Use Types Packs/Day Years Used Date Smoking Tobacco: Never Smokeless Tobacco: Never Alcohol Use Standard Drinks/Week Comments Never 0 (1 standard drink = 0.6 oz pur e alcohol) [facility] Utilities Answer Date Recorded In the past 12 months has [employer], gas, oil, or water company threatened [...] often do you attend chur ch or buddhist services? Never 10/11/2023 Do you belong to any clubs o r organizations such as adventist groups, unions, fraternal or athletic groups, or [...] and heating? Not hard at all 10/11/2023 [facility] of Occupat ional Health - Occupational [...] place to sleep or slept in a correction (including now)? No 10/11/2023 Sexually Active Control Partners Comments Not Currently Female Sex and Gender Information Value Date Recorded Sex Assigned at Male 11/01/2023 2:21 PM STERILE PROCESS COORDINATOR Legal Sex Male 11:21 PM CDT Gender Identity Male 11/01/2023 2:21 PM STERILE PROCESS COORDINATOR Sexual Orientation Straight 11/01/2023 2: 21 PM STERILE PROCESS COORDINATOR documented as of this encounter Plan of Treatment Upcoming Encounters Date Type Department Care Team (Late st Contact Info) Description 05/21/2025 2:30 PM CDT [facility] [address] [place] [address] Jose Marrero MD [address] [place] [address] documented as of this encounter Procedures Procedure Name Priority Date/Time Associated Diagnosis Comments CBC WITH AUTO DIFFERENTIAL Routine 10/17/2023 12:00 PM STERILE PROCESS COORDINATOR Hyperkalemia COMPLETE BLOOD COUNT (CBC) WITH DIFF Routine 10/17/2023 12:00 PM STERILE PROCESS COORDINATOR Hyperkalemia BASIC METABOLIC PANEL W/ CALCIUM TOTAL Routine 10/17/2023 12:00 PM STERILE PROCESS COORDINATOR Hyperkalemia documented in this encounter Results * (ABNORMAL) CBC WITH AUTO DIFFERENTIAL (10/17/2023 12:00 PM STERILE PROCESS COORDINATOR) WBC 7.64 4.00 - 12.00 10(3)/mcL 10/18/2023 1:14 PM STERILE PROCESS COORDINATOR [facility] RBC 4.79 4.40 - 5.80 10(6)/mcL 10/18/2023 1:14 PM [facility] HEMOGLOBIN (HGB) 14.2 13.0 - 16.5 g/dL 10/18/2023 1:14 PM [facility] HEMATOCRIT (HCT) 43.8 38.0 - 50.0 % 10/18/2023 1:14 PM [facility] MCV 91.4 82.0 - 96.0 fL 10/18/2023 1:14 PM [facility] MCH 29.6 26.0 - 32.0 pg 10/18/2023 1:14 PM [facility] MCHC 32.4 31.0 - 36.0 g/dL 10/18/2023 1:14 PM [facility] PLATELET COUNT 253 140 - 440 10(3)/mcL 10/18/2023 1:14 PM [facility] RDW 13.4 11.8 - 15.5 % 10/18/2023 1:14 PM [facility] MPV 11.3 8.0 - 12.6 fL 10/18/2023 1:14 PM [facility] NEUTROPHILS 76.4(H) 40.0 - 68.0 % 10/18/2023 1:14 PM [facility] LYMPHOCYTES 16.0(L) 19.0 - 49.0 % 10/18/2023 1:14 PM [facility] MONOCYTES 6.2 3.0 - 13.0 % 10/18/2023 1:14 PM [facility] EOSINOPHILS 0.9 0.0 - 8.0 % 10/18/2023 1:14 PM [facility] BASOPHILS 0.5 0.0 - 1.0 % 10/18/2023 1:14 PM [facility] ABSOLUTE NEUTROPHILS 5.84(H) 1.40 - 5.30 10(3)/mcL 10/18/2023 1:14 PM [facility] ABSOLUTE LYMPHOCYTES 1.22 0.90 - 3.30 10(3)/mcL 10/18/2023 1:14 PM STERILE PROCESS COORDINATOR [facility] ABSOLUTE MONOCYTES 0.47 0.10 - 0.90 10(3)/mcL 10/18/2023 1:14 PM STERILE PROCESS COORDINATOR [facility] ABSOLUTE EOSINOPHIL 0.07 0.00 - 0.50 10(3)/mcL 10/18/2023 1:14 PM STERILE PROCESS COORDINATOR [facility] ABSOLUTE BASOPHILS 0.04 0.00 - 0.10 10(3)/[facility] 10/18/2023 1:14 PM STERILE PROCESS COORDINATOR [facility] NRBC PER 100 WBC 0 10/18/19 24 1:14 PM [facility] Blood No Phlebotomy Charged / Unknown 10/17/2023 12:00 PM STERILE PROCESS COORDINATOR 10/18/2023 1:07 PM STERILE PROCESS COORDINATOR Jose Marrero MD HEMATOLOGY ORDERABLES Final Result [facility] [address] [place] [address] * (ABNORMAL) BASIC METABOLIC PANEL W/ CALCIUM TOTAL (10/17/2023 12:00 PM STERILE PROCESS COORDINATOR) SODIUM 141 136 - 145 mmol/L 10/18/2023 1:30 PM [facility] POTASSIUM 4.6 3.5 - 5.1 mmol/L 10/18/2023 1:30 PM [facility] CHLORIDE 109(H) 98 - 107 mmol/L 10/18/2023 1:30 PM [facility] CO2, VENOUS 23 22 - 30 mmol/L 10/18/2023 1:30 PM [facility] ANION GAP 13.6 <18.0 mmol/L 10/18/2023 1:30 PM [facility] GLUCOSE 203(H) 70 - 99 mg/dL 10/18/2023 1:30 PM [facility] BUN 21 8 - 26 mg/dL 10/18/2023 1:30 PM STERILE PROCESS COORDINATOR [facility] CREATININE, BLOOD 1.45(H) 0.70 - 1.30 mg/dL 10/18/2023 1:30 PM STERILE PROCESS COORDINATOR [facility] BUN/CREATININE RATIO 14 12 - 20 ratio 10/18/2023 1:30 PM STERILE PROCESS COORDINATOR [facility] CALCIUM 9.1 8.7 - 10.5 mg/dL 10/18/2023 1:30 PM STERILE PROCESS COORDINATOR [facility] GFR, ESTIMATED 53(L) >=60 10/18/2023 1:30 PM STERILE PROCESS COORDINATOR [facility] Comment: Creatinine Clearance is the preferred criteria for selecting drug dose adjustments in renally impaired patients. The GFR is provided as additional pertinent clinical information. GFR is reported in mL/min/1.73 sq m. Calculation based on the Chronic Kidney Disease Epidemiology Collaboration (CKD- EPI) equation refit without adjustment for race. GFR, EST. 59(L) >=60 024 1:30 PM STERILE PROCESS COORDINATOR [facility] GFR, EST. NONAFRICAN 49(L) >=60 10/18/2023 1:30 PM STERILE PROCESS COORDINATOR [facility] Blood No Phlebotomy Charged / Unknown 10/17/2023 12:00 PM STERILE PROCESS COORDINATOR 10/18/2023 1:07 PM STERILE PROCESS COORDINATOR us Jose Marrero MD CHEMISTRY ORDERABLES Final R esult [facility] [address] [place] [address] documented in this encounter Visit Diagnoses Diagnosis Hyperkalemia Hyperpotassemia documented in this encounter Care Teams Finisher Screwdown Relationship Specialty Start Date End Date Parker Wilder MD [address] [place] [address] PCP - General Pediatrics 03/08/23 Jose Marrero MD [address] [place] [address] Consulting Physician Neurology 03/08/23 documented as of this encounter
[2025-03-31 17:21] LABS: Hematocrit 38.4 % (37.0-46.0); Hemoglobin 12.6 g/dL (12.4-15.3); Immature Granulocyte Percent A 0.3 % (0.0-0.0); Lymphocytes Absolute Auto 1.18 K/mm3 (1.10-4.50); Mean Corpuscular HGB Conc 32.8 g/dL (32-36); Mean Corpuscular Hemoglobin 29.4 pg (27.0-31.0); Mean Corpuscular Volume 89.5 fL (78.0-102.0); Nucleated Red Blood Cells Absolute Auto 0.00 K/mm3 (0.00-0.00); Nucleated Red Blood Cells Perc 0.0 % (0-0.0); Platelet Count Result 164 K/mm3 (150-420); Red Blood Count 4.29 M/mm3 (4.70-6.10); White Blood Count 6.4 K/mm3 (4.8-10.8)
[2025-03-31 17:33] LABS: Alanine Aminotransferase 19 U/L (6-50); Albumin Level 3.9 g/dL (3.5-5.1); Alkaline Phosphatase 67 U/L (38-126); Anion Gap 5 mmol/L (4-12); Aspartate Amino Transferase 27 U/L (17-59); Bilirubin,Total 1.2 mg/dL (0.2-1.3); Blood Urea Nitrogen 16 mg/dL (9-20); Calcium 8.5 mg/dL (8.4-10.2); Carbon Dioxide 26 mmol/L (22-30); Chloride 110 mmol/L (98-107); Estimated CRCL calculation 46 ml/min; Estimated Glomerular Filt Rate 48; Glucose 153 mg/dL (65-110); Osmolality Calculated 296 mOsm/kg (285-295); Potassium 3.6 mmol/L (3.4-5.0); Sodium 141 mmol/L (137-145); Total Protein 6.2 g/dL (6.3-8.2)
--- OUTSIDE RECORDS SUMMARY | 2025-03-31 17:36 | XMS_ITS | Encounter Summary ---
Author Organization [facility] Address [address] [place] [address] Phone Care Team Providers Care Pin Machine Tender Name Role Phone Parker Wilder MD Primary Care Provider [phone] Jose Marrero MD Unavailable [phone] Reason for Visit * Reason Comments Medication Refill Encounter Details Date Type Department Care Team (Late st Contact Info) Description 02/28/2024 Refill [facility] - Neurology [facility] [address] [place] [address] Jose Marrero MD [address] [place] [address] Medication Refill Social History Tobacco Use Types Packs/Day Years Used Date Smoking Tobacco: Never Smokeless Tobacco: Never Alcohol Use Standard Drinks/Week Comments Never 0 (1 standard drink = 0.6 oz pur e alcohol) [facility] Utilities Answer Date Recorded In the past 12 months has [employer], gas, oil, or water company threatened to [...] often do you attend chur ch or orthodoxy services? Never 10/11/2023 Do you belong to any clubs o r organizations such as hindu groups, unions, fraternal or athletic groups, or [...] and heating? Not hard at all 10/11/2023 [facility] of Occupat ional Health - Occupational [...] Sex Assigned at Male 11/01/2023 2:21 PM PROTECTIVE SIGNAL REPAIRER HELPER Legal Sex Male 11:21 PM CDT Gender Identity Male 11/01/2023 2:21 PM PROTECTIVE SIGNAL REPAIRER HELPER Sexual Orientation Straight 11/01/2023 2: 21 PM PROTECTIVE SIGNAL REPAIRER HELPER documented as of this encounter Miscellaneous Notes [...] Dept 11/02/23 Office Visit Jose Marrero MD [facility] 06/12/23 Office Visit Jose Marrero MD [facility] 03/08/23 Office Visit Jose Marrero MD [facility] Showing recent visits within past 365 days and meeting all other requirements Future Appointments Date Type Provider Dept 05/05/24 Appointment Jose Marrero MD [facility] Showing future appointments within next 90 days and meeting all other requirements documented in this encounter Plan of Treatment Upcoming Encounters Date Type Department Care Team (Late st Contact Info) Description 05/21/2025 2:30 PM CDT Office Visit [facility] - Neurology [facility] [address] [place] [address] Jose Marrero MD [address] [place] [address] documented as of this encounter Visit Diagnoses Not on filedocumented in this encounter Care Teams Pin Machine Tender Relationship Specialty Start Date End Date Parker Wilder MD [address] [place] [address] PCP - General Pediatrics 03/08/23 Jose Marrero MD [address] [place] [address] Consulting Physician Neurology 03/08/23 documented as of this encounter
--- OUTSIDE RECORDS SUMMARY | 2025-03-31 17:36 | XMS_ITS | Clinical Summary ---
Author Organization [facility] Address [facility] [place] [address] Care Team Providers Care Seo Intern Name Role Phone Parker Wilder MD Primary Care Provider [phone] Allergies Active Allergy Reactions Criticality Noted Date [...] 05/20/2019 Mixed hyperlipidemia Benign essential HTN Diabetes ([facility]) Dizziness Back pain Syncope Major depressive disorder [...] Health Maintenance Insurance MEDICARE MEDICARE Care Teams Seo Intern Relationship Specialty Start Date End Date Parker Wilder MD [address] [id number] PCP - General FAMILY PRACTICE 12/27/18
--- OUTSIDE RECORDS SUMMARY | 2025-03-31 17:36 | XMS_ITS | Encounter Summary ---
Author Organization [facility] Address [address] [place] [address] Phone Care Team Providers Care Senior Hr Manager Name Role Phone Parker Wilder MD Primary Care Provider [phone] Jose Marrero MD Unavailable [phone] Reason for Visit * Reason Comments Medication Refill Encounter Details Date Type Department Care Team (Late st Contact Info) Description 01/14/2025 Refill [facility] - Neurology [facility] [address] [place] [address] Jose Marrero MD [address] [place] [address] Medication Refill Social History Tobacco Use Types Packs/Day Years Used Date Smoking Tobacco: Never Smokeless Tobacco: Never Alcohol Use Standard Drinks/Week Comments Never 0 (1 standard drink = 0.6 oz pur e alcohol) [facility] Utilities Answer Date Recorded In the past 12 months has [employer], gas, oil, or water company threatened to [...] often do you attend chur ch or protestant services? Never 10/11/2023 Do you belong to any clubs o r organizations such as advent groups, unions, fraternal or athletic groups, or [...] and heating? Not hard at all 10/11/2023 [facility] of Occupat ional Health - [...] place to sleep or slept in a longterm (including now)? No 10/11/2023 Sexually Active Control Partners Comments Not Currently Female Sex and Gender Information Value Date Recorded Sex Assigned at Male 11/01/2023 2:21 PM SENIOR ATTORNEY Legal Sex Male 11:21 PM CDT Gender Identity Male 11/01/2023 2:21 PM SENIOR ATTORNEY Sexual Orientation Straight 11/01/2023 2: 21 PM SENIOR ATTORNEY documented as of this encounter Plan of Treatment Upcoming Encounters Date Type Department Care Team (Late st Contact Info) Description 05/21/2025 2:30 PM CDT Office Visit [facility] - Neurology [facility] [address] [place] [phone] Jose Marrero MD [address] [place] [address] documented as of this encounter Visit Diagnoses Not on filedocumented in this encounter Care Teams Senior Hr Manager Relationship Specialty Start Date End Date Parker Wilder MD [address] [place] [address] PCP - General Pediatrics 03/08/23 Jose Marrero MD [address] [place] [address] Consulting Physician Neurology 03/08/23 documented as of this encounter
--- OUTSIDE RECORDS SUMMARY | 2025-03-31 17:37 | XMS_ITS | Clinical Summary ---
Author Organization [facility] - [facility]UROLOGY [facility] Address [address] [place] [address] Phone Care Team Providers Care Exchange Underwriting Consultant Name Role Phone Parker Wilder MD Primary Care Provider [phone] Jose Marrero MD Unavailable [phone] Allergies Active Allergy Reactions Criticality Noted Date [...] Type Department Care Team Description 03/09/20[facility] [address] [place] [phone] Jose Marrero MD Medication Refill 01/14/2025 Refill [facility] Neurology [facility] [address] [place] [address] Jose Marrero MD Medication Refill [...] pur e alcohol) [facility] Utilities Answer Date Recorded In the past 12 months has th e [employer], gas, oil, or water [employer] threatened to shut off services in your [...] any clubs o r organizations such as catholic groups, unions, fraternal or athletic groups, or [...] and heating? Not hard at all 10/11/2023 [facility] of Occupat ional Health - Occupational Stress [...] place to sleep or slept in a long term (including now)? No 10/11/2023 Sexually Active Control Partners Comments Not Currently Female Sex and Gender Information Value Date Recorded Sex Assigned at Male 11/01/2023 2:21 PM INVESTMENT BANKING MANAGER Legal Sex Male 11:21 PM CDT Gender Identity Male 11/01/2023 2:21 PM INVESTMENT BANKING MANAGER Sexual Orientation Straight 11/01/2023 2: 21 PM INVESTMENT BANKING MANAGER Last Filed Vital Signs Vital Sign Reading Time Taken Comments Blood Pressure 160/114 11/14/2024 2:18 PM INVESTMENT BANKING MANAGER Pulse 83 11/14/2024 2:18 PM INVESTMENT BANKING MANAGER Temperature 36.6 C (97.9 F) 11/14/2024 2:18 PM INVESTMENT BANKING MANAGER Respiratory Rate 16 11/14/2024 2:18 PM INVESTMENT BANKING MANAGER Oxygen Saturation 100% 11/14/2024 2:18 PM INVESTMENT BANKING MANAGER Inhaled Oxygen Concentration - - Weight 98.2 kg (216 lb 8 oz) 11/14/2024 2:18 PM INVESTMENT BANKING MANAGER Height 177.8 cm (5' 10) 11/14/2024 2:18 PM INVESTMENT BANKING MANAGER Body Mass Index 31.06 11/14/2024 2:18 PM INVESTMENT BANKING MANAGER Plan of Treatment Upcoming Encounters Date Type Department Care Team (Late st Contact Info) Description 05/21/2025 2:30 PM CDT Office Visit [facility] - [facility]rology - [place] [address] [place] [address] Jose Marrero MD [address] [place] [address] Health Maintenance Due Date Last Done Comments [...] (COMPREHENSIVE METABOLIC PANEL) STAT 10/11/2023 12:55 PM INVESTMENT BANKING MANAGER HEMOGLOBIN A1C W/ ESTIMATED GLUCOSE Routine 10/11/2023 12:55 PM INVESTMENT BANKING MANAGER from Last 3 Months or Most Recently Relevant to Health Maintenance Results * (ABNORMAL) Hemoglobin A1C (if indicated) (10/11/2023 12:55 PM INVESTMENT BANKING MANAGER) HGB-A1C 8.0(H) 4.0 - 6.0 % 10/12/2023 12:11 AM INVESTMENT BANKING MANAGER [facility] Est Average Glucose 182.9 mg/dL 10/12/2023 12:11 AM INVESTMENT BANKING MANAGER [facility] Blood Venipuncture / Unknown 10/11/2023 12:55 PM INVESTMENT BANKING MANAGER 10/11/2023 1:10 PM INVESTMENT BANKING MANAGER Narrative [facility] - 10/12/2023 12:11 AM INVESTMENT BANKING MANAGER HEMOGLOBIN A1C: DIABETIC PATIENTS: WELL-CONTROLLED: 6.2 - 7.0 INTERMEDIATE WELL-CONTROLLED: 7.0 - 9.0 POORLY-CONTROLLED: >9.0 us [place] HEALTHCARE RECRUITER, RECONNAISSANCE CREWMEMBER CHEMISTRY ORDERABLES Fi nal Result [facility] [address] [place] [address] * (ABNORMAL) CMP (Comprehensive Metabolic Panel) (10/11/2023 12:55 PM INVESTMENT BANKING MANAGER) SODIUM 136 136 - 145 mmol/L 10/11/2023 1:33 PM INVESTMENT BANKING MANAGER [facility] POTASSIUM 5.5(H) 3.5 - 5.1 mmol/L 10/11/2023 1:33 PM [facility] CHLORIDE 108(H) 98 - 107 mmol/L 10/11/2023 1:33 PM [facility] CO2, VENOUS 20(L) 22 - 30 mmol/L 10/11/2023 1:33 PM [facility] ANION GAP 13.5 <18.0 mmol/L 10/11/2023 1:33 PM [facility] GLUCOSE 297(H) 70 - 99 mg/dL 10/11/2023 1:33 PM [facility] BUN 27(H) 8 - 26 mg/dL 10/11/2023 1:33 PM [facility] CREATININE, BLOOD 1.70(H) 0.70 - 1.30 mg/dL 10/11/2023 1:33 PM [facility] BUN/CREATININE RATIO 16 12 - 20 ratio 10/11/2023 1:33 PM [facility] TOTAL PROTEIN 7.8 6.3 - 8.2 g/dL 10/11/2023 1:33 PM [facility] ALBUMIN 4.3 3.5 - 5.0 g/dL 10/11/2023 1:33 PM [facility] A/G RATIO 1.2 1.0 - 2.2 10/11/2023 1:33 PM [facility] CALCIUM 9.6 8.7 - 10.5 mg/dL 10/11/2023 1:33 PM [facility] T BILI 1.2 0.2 - 1.2 mg/dL 10/11/2023 1:33 PM [facility] SGOT (AST) 17 5 - 34 U/L 10/11/2023 1:33 PM [facility] SGPT (ALT) 6 0 - 55 U/L 10/11/2023 1:33 PM [facility] ALKALINE PHOSPHATASE 88 40 - 150 U/L 10/11/2023 1:33 PM INVESTMENT BANKING MANAGER [facility] GFR, ESTIMATED 44(L) >=60 10/11/2023 1:33 PM INVESTMENT BANKING MANAGER [facility] Comment: Creatinine Clearance is the preferred criteria for selecting drug dose adjustments in renally impaired patients. The GFR is provided as additional pertinent clinical information. GFR is reported in mL/min/1.73 sq m. Calculation based on the Chronic Kidney Disease Epidemiology Collaboration (CKD- EPI) equation refit without adjustment for race. GFR, EST. 49(L) >=60 024 1:33 PM INVESTMENT BANKING MANAGER [facility] GFR, EST. NONAFRICAN 41(L) >=60 10/11/2023 1:33 PM INVESTMENT BANKING MANAGER [facility] Blood Venipuncture / Unknown 10/11/2023 12:55 PM INVESTMENT BANKING MANAGER 10/11/2023 1:10 PM INVESTMENT BANKING MANAGER Tony Chong MD CHEMISTRY ORDERABLES F inal Result [facility] [address] [place] [address] from Last 3 Months or Most Recently [...] measures to stabilize the patient. Care Teams Exchange Underwriting Consultant Relationship Specialty Start Date End Date Parker Wilder MD [address] [place] [address] PCP - General Pediatrics 03/08/23 Jose Marrero MD [address] [place] [phone] Consulting Physician Neurology 03/08/23
--- OUTSIDE RECORDS SUMMARY | 2025-03-31 17:37 | XMS_ITS | Encounter Summary ---
Author Organization [facility] Address [address] [place] [address] Phone Care Team Providers Care Canvassing Manager Name Role Phone Parker Wilder MD Primary Care Provider [phone] Jose Marrero MD Unavailable [phone] Encounter Details Date Type Department Care Team (Late st Contact Info) Description 10/18/2023 Lab Requisition [facility] Services [address] [place] [address] Jose Marrero MD [address] [place] [phone] Hyperkalemia Social History Tobacco Use Types Packs/Day Years Used Date Smoking Tobacco: Never Smokeless Tobacco: Never Alcohol Use Standard Drinks/Week Comments Never 0 (1 standard drink = 0.6 oz pur e alcohol) [facility] Utilities Answer Date Recorded In the past 12 months has [employer], gas, oil, or water company threatened [...] often do you attend chur ch or cheondoism services? Never 10/11/2023 Do you belong to any clubs o r organizations such as jain groups, unions, fraternal or athletic groups, or [...] heating? Not hard at all 10/11/2023 [facility] of Occupat ional Health [...] place to sleep or slept in a detention (including now)? No 10/11/2023 Sexually Active Control Partners Comments Not Currently Female Sex and Gender Information Value Date Recorded Sex Assigned at Male 11/01/2023 2:21 PM SACK CLEANER Legal Sex Male 11:21 PM CDT Gender Identity Male 11/01/2023 2:21 PM SACK CLEANER Sexual Orientation Straight 11/01/2023 2: 21 PM SACK CLEANER documented as of this encounter Plan of Treatment Upcoming Encounters Date Type Department Care Team (Late st Contact Info) Description 05/21/2025 2:30 PM CDT [facility] [address] [place] [address] Jose Marrero MD [address] [place] [address] documented as of this encounter Procedures Procedure Name Priority Date/Time Associated Diagnosis Comments CBC WITH AUTO DIFFERENTIAL Routine 10/17/2023 12:00 PM SACK CLEANER Hyperkalemia COMPLETE BLOOD COUNT (CBC) WITH DIFF Routine 10/17/2023 12:00 PM SACK CLEANER Hyperkalemia BASIC METABOLIC PANEL W/ CALCIUM TOTAL Routine 10/17/2023 12:00 PM SACK CLEANER Hyperkalemia documented in this encounter Results * (ABNORMAL) CBC WITH AUTO DIFFERENTIAL (10/17/2023 12:00 PM SACK CLEANER) WBC 7.64 4.00 - 12.00 10(3)/mcL 10/18/2023 1:14 PM SACK CLEANER [facility] RBC 4.79 4.40 - 5.80 10(6)/mcL 10/18/2023 1:14 PM [facility] HEMOGLOBIN (HGB) 14.2 13.0 - 16.5 g/dL 10/18/2023 1:14 PM [facility] HEMATOCRIT (HCT) 43.8 38.0 - 50.0 % 10/18/2023 1:14 PM [facility] MCV 91.4 82.0 - 96.0 fL 10/18/2023 1:14 PM [facility] MCH 29.6 26.0 - 32.0 pg 10/18/2023 1:14 PM [facility] MCHC 32.4 31.0 - 36.0 g/dL 10/18/2023 1:14 PM [facility] PLATELET COUNT 253 140 - 440 10(3)/mcL 10/18/2023 1:14 PM [facility] RDW 13.4 11.8 - 15.5 % 10/18/2023 1:14 PM [facility] MPV 11.3 8.0 - 12.6 fL 10/18/2023 1:14 PM [facility] NEUTROPHILS 76.4(H) 40.0 - 68.0 % 10/18/2023 1:14 PM [facility] LYMPHOCYTES 16.0(L) 19.0 - 49.0 % 10/18/2023 1:14 PM [facility] MONOCYTES 6.2 3.0 - 13.0 % 10/18/2023 1:14 PM [facility] EOSINOPHILS 0.9 0.0 - 8.0 % 10/18/2023 1:14 PM [facility] BASOPHILS 0.5 0.0 - 1.0 % 10/18/2023 1:14 PM [facility] ABSOLUTE NEUTROPHILS 5.84(H) 1.40 - 5.30 10(3)/mcL 10/18/2023 1:14 PM [facility] ABSOLUTE LYMPHOCYTES 1.22 0.90 - 3.30 10(3)/mcL 10/18/2023 1:14 PM SACK CLEANER [facility] ABSOLUTE MONOCYTES 0.47 0.10 - 0.90 10(3)/mcL 10/18/2023 1:14 PM SACK CLEANER [facility] ABSOLUTE EOSINOPHIL 0.07 0.00 - 0.50 10(3)/mcL 10/18/2023 1:14 PM SACK CLEANER [facility] ABSOLUTE BASOPHILS 0.04 0.00 - 0.10 10(3)/[facility] 10/18/2023 1:14 PM SACK CLEANER [facility] NRBC PER 100 WBC 0 10/18/19 24 1:14 PM [facility] Blood No Phlebotomy Charged / Unknown 10/17/2023 12:00 PM SACK CLEANER 10/18/2023 1:07 PM SACK CLEANER Jose Marrero MD HEMATOLOGY ORDERABLES Final Result [facility] [address] [place] [address] * (ABNORMAL) BASIC METABOLIC PANEL W/ CALCIUM TOTAL (10/17/2023 12:00 PM SACK CLEANER) SODIUM 141 136 - 145 mmol/L 10/18/2023 1:30 PM [facility] POTASSIUM 4.6 3.5 - 5.1 mmol/L 10/18/2023 1:30 PM [facility] CHLORIDE 109(H) 98 - 107 mmol/L 10/18/2023 1:30 PM [facility] CO2, VENOUS 23 22 - 30 mmol/L 10/18/2023 1:30 PM [facility] ANION GAP 13.6 <18.0 mmol/L 10/18/2023 1:30 PM [facility] GLUCOSE 203(H) 70 - 99 mg/dL 10/18/2023 1:30 PM [facility] BUN 21 8 - 26 mg/dL 10/18/2023 1:30 PM SACK CLEANER [email or web address] CREATININE, BLOOD 1.45(H) 0.70 - 1.30 mg/dL 10/18/2023 1:30 PM SACK CLEANER [email or web address] BUN/CREATININE RATIO 14 12 - 20 ratio 10/18/2023 1:30 PM SACK CLEANER [email or web address] CALCIUM 9.1 8.7 - 10.5 mg/dL 10/18/2023 1:30 PM SACK CLEANER [email or web address] GFR, ESTIMATED 53(L) >=60 10/18/2023 1:30 PM SACK CLEANER [email or web address] Comment: Creatinine Clearance is the preferred criteria for selecting drug dose adjustments in renally impaired patients. The GFR is provided as additional pertinent clinical information. GFR is reported in mL/min/1.73 sq m. Calculation based on the Chronic Kidney Disease Epidemiology Collaboration (CKD- EPI) equation refit without adjustment for race. GFR, EST. 59(L) >=60 024 1:30 PM SACK CLEANER [email or web address] GFR, EST. NONAFRICAN 49(L) >=60 10/18/2023 1:30 PM SACK CLEANER [facility] Blood No Phlebotomy Charged / Unknown 10/17/2023 12:00 PM SACK CLEANER 10/18/2023 1:07 PM SACK CLEANER us Jose Marrero MD CHEMISTRY ORDERABLES Final R esult [facility] [address] [place] [address] documented in this encounter Visit Diagnoses Diagnosis Hyperkalemia Hyperpotassemia documented in this encounter Care Teams Canvassing Manager Relationship Specialty Start Date End Date Parker Wiledr MD [address] [place] [address] PCP - General Pediatrics 03/08/23 Jose Marrero MD [address] [place] [address] Consulting Physician Neurology 03/08/23 documented as of this encounter
--- NOTE | 2025-03-31 18:02 | ED_ITS ---
HPI - General Adult General Chief complaint: Syncope Stated complaint: Syncope Time Seen by Provider: 03/31/25 16:41 History of Present Illness HPI narrative: 69-year-old with a history of Parkinson's was brought in by EMS with a complaint of on fall in front of [facility]. Patient states that he lost his balance and fell twice. PD was at the scene recommended him to go to the emergency room. Patient states that he was reluctant to brought to ER by EMS he presently has no complaint and he wants to Y[place] the police. He lives by himself Related Data Home Medications ?Medication ?Instructions ?Recorded ?Confirmed ?Last Taken ?Type bupropion HCl 300 mg 24 hr tablet, 300 mg PO QAM 06/19/22 02/16/25 Unknown History extended release metformin 500 mg tablet 500 mg PO BID 01/24/23 02/16/25 Unknown History carbidopa 25 mg-levodopa 100 mg 1 tablet PO DAILY 03/14/23 02/16/25 Unknown History tablet venlafaxine 75 mg capsule,extended 75 mg PO DAILY 02/16/25 02/16/25 Unknown History release 24 hr Allergies Allergy/AdvReac Type Severity Reaction Status Date / Time povidone-iodine (From Allergy Rash Verified 03/28/25 16:06 Betadine) Review of Systems 2 Review of Systems: All systems reviewed & are unremarkable except as noted in HPI and below Constitutional: Constitutional: Reports no additional constitutional complaints Eyes: Eyes: Reports no additional eye complaints ENT: Reports system reviewed and no additional complaints, except as documented Cardiovascular: Cardiovascular: Reports no additional cardiovascular complaints Respiratory: Respiratory: Reports no additional respiratory complaints Gastrointestinal: Gastrointestinal: Reports no additional gastrointestinal complaints Genitourinary: Genitourinary: Reports no additional male genitourinary complaints Musculoskeletal: Musculoskeletal: Reports no additional musculoskeletal complaints Integumentary/Breasts: Skin/Breast: Reports system reviewed and no additional complaints, except as docu Neurologic: Reports system reviewed and no additional complaints, except as documented Psychiatric: Psychiatric: Reports no additional psychiatric complaints Endocrine: Endocrine: Reports no additional endocrine complaints [facility] Past Medical History Medical History Tremor Mixed hyperlipidemia Orthostatic hypotension Testicular cancer Depression Diabetes mellitus Hypertension initial test 2014, declined CPAP Obstructive sleep apnea (~07/2021) Surgical History Surgical History History of inguinal hernia repair Status post orchiectomy 1979 Family History Family History Father Diabetes mellitus Social History Social History Smoking status: Never smoker Second hand tobacco smoke exposure: Yes Alcohol intake: never Substance use: never Substance use type: does not use Do You Feel Safe in your Home?: Yes Lack of Transportation: No Lack of Food: Never True Current Housing: I Have Housing Concerned About Future Housing: No Difficulty Paying Gas/Electric Bills: No Difficulty Paying for Meds: No Currently Unemployed: No Education: Bachelor's Degree Difficulty w/ Childcare or Family Care: No Spiritual care concerns: No Exam 2 Narrative: GENERAL: Well-appearing, well-nourished, and in no acute distress. HEAD: Normocephalic, atraumatic. EYES: PERRLA and EOMI. ENT: Nares clear, no rhinorrhea or epistaxis. Mucous membranes moist. NECK: Supple. CHEST: Clear to auscultation. No respiratory distress. HEART: Regular rate and rhythm. No murmur heard. Normal peripheral pulses. ABDOMEN: Soft, nontender, nondistended, normal active bowel sounds. EXTREMITIES: Normal range of motion. No edema. SKIN: Warm, dry, no rash. NEURO: No focal deficits. Alert and oriented x3. has Parkinson tremor PSYCH: Normal mood and affect. Course Course Emergency Course: notified patient about his lab work, EKG and CT findings. He remained stable here. Discharge him home with fall precautions Vital Signs Vital signs: Vital Signs Temperature 36.6 C 03/31/25 16:36 Pulse Rate 100 03/31/25 16:36 Respiratory Rate 18 03/31/25 16:36 Blood Pressure 147/98 H 03/31/25 16:36 Pulse Oximetry 93 03/31/25 16:36 Oxygen Delivery Room Air 03/31/25 16:36 Temperature 37.2 C 03/31/25 16:40 Pulse Rate 100 03/31/25 16:40 Respiratory Rate 18 03/31/25 16:40 Blood Pressure 146/81 H 03/31/25 16:40 Pulse Oximetry 100 03/31/25 16:40 Oxygen Delivery Room Air 03/31/25 16:40 Medical Decision Making Differential Diagnosis Differential Diagnosis: head injury C-spine injury, hypotension, dehydration Medical Records Medical records reviewed: Yes I reviewed the external patient's medical records. Vital Signs Vital Signs: Vital Signs Temperature 36.6 C 03/31/25 16:36 Pulse Rate 100 03/31/25 16:36 Respiratory Rate 18 03/31/25 16:36 Blood Pressure 147/98 H 03/31/25 16:36 Pulse Oximetry 93 03/31/25 16:36 Oxygen Delivery Room Air 03/31/25 16:36 Temperature 37.2 C 03/31/25 16:40 Pulse Rate 100 03/31/25 16:40 Respiratory Rate 18 03/31/25 16:40 Blood Pressure 146/81 H 03/31/25 16:40 Pulse Oximetry 100 03/31/25 16:40 Oxygen Delivery Room Air 03/31/25 16:40 Lab Data Lab results reviewed: Yes I reviewed the patient's lab results. 03/31/25 17:14 03/31/25 17:14 Labs: Lab Results 03/31/25 03/31/25 Range/Units 17:09 17:14 WBC 6.4 (4.8-10.8) K/mm3 RBC 4.29 L (4.70-6.10) M/mm3 Hgb 12.6 (12.4-15.3) g/dL Hct 38.4 (37.0-46.0) % MCV 89.5 (78.0-102.0) fL MCH 29.4 (27.0-31.0) pg MCHC 32.8 (32-36) g/dL RDW 12.9 (11.6-14.4) % Plt Count 164 (150-420) K/mm3 MPV 10.9 (8.7-11.0) fl Immature Gran % (Auto) 0.3 H (0.0-0.0) % Neut % (Auto) 75.3 H (50.0-70.0) % Lymph % (Auto) 18.6 (18.0-42.0) % [place] % (Auto) 4.6 (2.0-11.0) % Eos % (Auto) 0.9 L (1.0-6.0) % Baso % (Auto) 0.3 (0.0-1.0) % Lymph # (Auto) 1.18 (1.10-4.50) K/mm3 [place] # (Auto) 0.29 (0.10-0.90) K/mm3 Eos # (Auto) 0.06 (0.02-0.50) K/mm3 Baso # (Auto) 0.02 (0.00-0.10) K/mm3 Abs Immat Gran (auto) 0.02 H (0.00-0.00) K/mm3 Absolute Neuts (auto) 4.79 (1.70-7.20) K/mm3 Absolute Nucleated RBC 0.00 (0.00-0.00) K/mm3 Nucleated RBC % 0.0 (0-0.0) % Sodium 141 (137-145) mmol/L Potassium 3.6 (3.4-5.0) mmol/L Chloride 110 H (98-107) mmol/L Carbon Dioxide 26 (22-30) mmol/L Anion Gap 5 (4-12) mmol/L BUN 16 (9-20) mg/dL Creatinine 1.46 H (0.7-1.3) mg/dL Estim Creat Clear Calc 46 ml/min Estimated GFR 48 L (59 - ) Glucose 153 H (65-110) mg/dL Calculated Osmolality 296 H (285-295) mOsm/kg Calcium 8.5 (8.4-10.2) mg/dL Total Bilirubin 1.2 (0.2-1.3) mg/dL AST 27 (17-59) U/L ALT 19 (6-50) U/L Alkaline Phosphatase 67 (38-126) U/L Total Protein 6.2 L (6.3-8.2) g/dL Albumin 3.9 (3.5-5.1) g/dL Ethyl Alcohol < 10 (<10) mg/dL Imaging Data Radiologist's impression: ITS Impressions Head CT 03/31/25 17:09 IMPRESSION: No acute intracranial process. No significant interval change from examination performed yesterday. Unchanged right maxillary sinus hemorrhage. ECG Data EKG #1: ECG completion date: 03/31/25 ECG completion time: 16:58 EKG Interpretation: normal rate (96), sinus rhythm, no ectopy, no ST changes and no acute changes Discharge Plan Discharge Clinical Impression: Impaired gait, Frequent falls Minor head injury Qualifiers: Encounter type: initial encounter Qualified Code(s): S09.90XA - Unspecified injury of head, initial encounter Patient Disposition: Home Condition: Stable Instructions: Head Injury (DC), Fall Prevention (ED) Additional Instructions: Continue home medications, fall precautions , Patient Language: Arabic Prescriptions: No Action metformin 500 mg tablet 500 mg PO BID carbidopa-levodopa 25-100 mg tablet 1 tablet PO DAILY bupropion HCl 300 mg tablet extended release 24 hr 300 mg PO QAM venlafaxine 75 mg capsule,extended release 24hr 75 mg PO DAILY potassium chloride 10 mEq tablet extended release 10 meq PO BID Qty: 60 5RF carvedilol 6.25 mg tablet See Rx Instructions .ROUTE .COMPLEX Qty: 180 2RF Dose Instruction: TAKE ONE TABLET BY MOUTH TWICE A DAY #1010 Rx Instructions: TAKE ONE TABLET BY MOUTH TWICE A DAY #1010 losartan 100 mg tablet See Rx Instructions .ROUTE .COMPLEX Qty: 90 2RF Dose Instruction: TAKE ONE TABLET BY MOUTH DAILY #1000 Rx Instructions: TAKE ONE TABLET BY MOUTH DAILY #1000 tamsulosin 0.4 mg capsule See Rx Instructions .ROUTE .COMPLEX Qty: 30 2RF Dose Instruction: TAKE ONE CAPSULE BY MOUTH DAILY #1000 Rx Instructions: TAKE ONE CAPSULE BY MOUTH DAILY #1000 venlafaxine 150 mg capsule,extended release 24hr See Rx Instructions .ROUTE .COMPLEX Qty: 30 0RF Dose Instruction: TAKE ONE CAPSULE BY MOUTH DAILY #1000 Rx Instructions: TAKE ONE CAPSULE BY MOUTH DAILY #1000 fludrocortisone 0.1 mg tablet See Rx Instructions .ROUTE .COMPLEX Qty: 90 2RF Dose Instruction: TAKE ONE TABLET BY MOUTH THREE TIMES A DAY #1110 Rx Instructions: TAKE ONE TABLET BY MOUTH THREE TIMES A DAY #1110 atorvastatin 20 mg tablet See Rx Instructions .ROUTE .COMPLEX Qty: 90 2RF Dose Instruction: TAKE ONE TABLET BY MOUTH DAILY #0010 Rx Instructions: TAKE ONE TABLET BY MOUTH DAILY #0010 Follow-up/Referrals: Parker Wilder MD [Primary Care Provider] - Time of Disposition: 18:14
== END 2025-03-31 18:28 | disposition home or self-care (01) ==
PROVIDERS: Emergency Provider Family Medicine; PCP Family Medicine
DX: R26.9 Unspecified abnormalities of gait and mobility (principal); S09.90XA Unspecified injury of head, initial encounter; E78.2 Mixed hyperlipidemia; E11.9 Type 2 diabetes mellitus without complications; I10 Essential (primary) hypertension; Z85.47 Personal history of malignant neoplasm of testis; W18.39XA Other fall on same level, initial encounter; Y92.512 Supermarket, store or market as the place of occurrence of the external cause
CPT/HCPCS: 36415; 70450; 80053; 82077; 85025; 93005; 99284

== ENCOUNTER 2025-04-16 14:29 | Outpatient (CLI) | payer MEDICARE, SELFPAY ==
--- OUTSIDE RECORDS SUMMARY | 2025-04-16 14:32 | XMS_ITS | Encounter Summary ---
Author Organization [facility] Address [address] [place] [address] Phone Care Team Providers Care Roller Printing Supervisor Name Role Phone Parker Wilder MD Primary Care Provider [phone] Jose Marrero MD Unavailable [phone] Reason for Visit * Reason Comments Medication Refill Encounter Details Date Type Department Care Team (Late st Contact Info) Description 01/14/2025 Refill [facility] - Neurology [facility] [address] [place] [address] Jose Marrero MD [address] [place] [address] Medication Refill Social History Tobacco Use Types Packs/Day Years Used Date Smoking Tobacco: Never Smokeless Tobacco: Never Alcohol Use Standard Drinks/Week Comments Never 0 (1 standard drink = 0.6 oz pur e alcohol) [facility] Utilities Answer Date Recorded In the past 12 months has [employer], gas, oil, or water company threatened to [...] often do you attend chur ch or druze services? Never 10/11/2023 Do you belong to any clubs o r organizations such as shinto groups, unions, fraternal or athletic groups, or [...] and heating? Not hard at all 10/11/2023 [facility] - Occupational [...] place to sleep or slept in a care home (including now)? No 10/11/2023 Sexually Active Control Partners Comments Not Currently Female Sex and Gender Information Value Date Recorded Sex Assigned at Male 11/01/2023 2:21 PM AGENCY SALES MANAGEMENT ASSISTANT Legal Sex Male 11:21 PM CDT Gender Identity Male 11/01/2023 2:21 PM AGENCY SALES MANAGEMENT ASSISTANT Sexual Orientation Straight 11/01/2023 2: 21 PM AGENCY SALES MANAGEMENT ASSISTANT documented as of this encounter Plan of Treatment Upcoming Encounters Date Type Department Care Team (Late st Contact Info) Description 05/21/2025 2:30 PM CDT Office Visit [facility] - Neurology [facility] [address] [place] [phone] Jose Marrero MD [address] [place] [phone] documented as of this encounter Visit Diagnoses Not on filedocumented in this encounter Care Teams Roller Printing Supervisor Relationship Specialty Start Date End Date Parker Wilder MD [address] [place] [address] PCP - General Pediatrics 03/08/23 Jose Marrero MD [address] [place] [phone] Consulting Physician Neurology 03/08/23 documented as of this encounter
--- OUTSIDE RECORDS SUMMARY | 2025-04-16 14:32 | XMS_ITS | Encounter Summary ---
Author Organization [facility] Address [address] [place] [address] Phone Care Team Providers Care Flower Arranger Name Role Phone Parker Wilder MD Primary Care Provider [phone] Jose Marrero MD Unavailable [phone] Reason for Visit * Reason Comments Medication Refill Encounter Details Date Type Department Care Team (Late st Contact Info) Description 02/28/2024 Refill [facility] [address] [place] [address] Jose Marrero MD [address] [place] [address] Medication Refill Social History Tobacco Use Types Packs/Day Years Used Date Smoking Tobacco: Never Smokeless Tobacco: Never Alcohol Use Standard Drinks/Week Comments Never 0 (1 standard drink = 0.6 oz pur e alcohol) [facility] Utilities Answer Date Recorded In the past 12 months has [employer], gas, oil, or water company threatened to [...] often do you attend chur ch or baptism services? Never 10/11/2023 Do you belong to [...] and heating? Not hard at all 10/11/2023 [facility] Occupat ional Health - [...] place to sleep or slept in a penitentiary (including now)? No 10/11/2023 Sexually Active Control Partners Comments Not Currently Female Sex and Gender Information Value Date Recorded Sex Assigned at Male 11/01/2023 2:21 PM IRON GUARDRAIL INSTALLER Legal Sex Male 11:21 PM CDT Gender Identity Male 11/01/2023 2:21 PM IRON GUARDRAIL INSTALLER Sexual Orientation Straight 11/01/2023 2: 21 PM IRON GUARDRAIL INSTALLER documented as of this encounter Miscellaneous Notes [...] Dept 11/02/23 Office Visit Jose Marrero MD [facility] 06/12/23 Office Visit Jose Marrero MD [facility] 03/08/23 Office Visit Jose Marrero MD [facility] Showing recent visits within past 365 days and meeting all other requirements Future Appointments Date Type Provider Dept 05/05/24 Appointment Jose Marrero MD [facility] Showing future appointments within next 90 days and meeting all other requirements documented in this encounter Plan of Treatment Upcoming Encounters Date Type Department Care Team (Late st Contact Info) Description 05/21/2025 2:30 PM CDT [facility] [address] [place] [address] Jose Marrero MD [address] [place] [address] documented as of this encounter Visit Diagnoses Not on filedocumented in this encounter Care Teams Flower Arranger Relationship Specialty Start Date End Date Parker Wilder MD [address] [place] [address] PCP - General Pediatrics 03/08/23 Jose Marrero MD [address] [place] [address] Consulting Physician Neurology 03/08/23 documented as of this encounter
--- OUTSIDE RECORDS SUMMARY | 2025-04-16 14:33 | XMS_ITS | Clinical Summary ---
Author Organization [facility] Address [facility] [place] [address] Care Team Providers Care Child Care Worker Name Role Phone Parker Wilder MD Primary Care Provider [phone] Allergies Active Allergy Reactions Criticality Noted Date [...] 05/20/2019 Mixed hyperlipidemia Benign essential HTN Diabetes ([facility]) Dizziness Back pain Syncope Major depressive disorder [...] Health Maintenance Insurance MEDICARE MEDICARE Care Teams Child Care Worker Relationship Specialty Start Date End Date Parker Wilder MD [address] [id number] PCP - General FAMILY PRACTICE 12/27/18
--- OUTSIDE RECORDS SUMMARY | 2025-04-16 14:33 | XMS_ITS | Patient Health Record ---
Author Organization [facility] [employer] Address [address] [address] Care Team Providers Care Grain Shoveler Name Role Phone Scott Fitzpatrick Unavailable [phone] Reason For Referral No Information Plan Of Treatment No Information
--- OUTSIDE RECORDS SUMMARY | 2025-04-16 14:33 | XMS_ITS | Encounter Summary ---
Author Organization [facility] Address [address] [place] [address] Phone Care Team Providers Care Assistant To The Director Name Role Phone Parker Wilder MD Primary Care Provider [phone] Jose Marrero MD Unavailable [phone] Encounter Details Date Type Department Care Team (Late st Contact Info) Description 10/18/2023 Lab Requisition [facility] [address] [place] [address] Jose Marrero MD [address] [place] [phone] Hyperkalemia Social History Tobacco Use Types Packs/Day Years Used Date Smoking Tobacco: Never Smokeless Tobacco: Never Alcohol Use Standard Drinks/Week Comments Never 0 (1 standard drink = 0.6 oz pur e alcohol) [facility] Utilities Answer Date Recorded In the past 12 months has [employer], gas, oil, or water company threatened [...] often do you attend chur ch or roman catholic services? Never 10/11/2023 Do you belong to any clubs o r organizations such as worship groups, unions, fraternal or athletic groups, or [...] Sex Assigned at Male 11/01/2023 2:21 PM EARLY INTERVENTIONIST Legal Sex Male 11:21 PM CDT Gender Identity Male 11/01/2023 2:21 PM EARLY INTERVENTIONIST Sexual Orientation Straight 11/01/2023 2: 21 PM EARLY INTERVENTIONIST documented as of this encounter Plan of Treatment Upcoming Encounters Date Type Department Care Team (Late st Contact Info) Description 05/21/2025 2:30 PM CDT [facility] [address] [place] [address] Jose Marrero MD [address] [place] [address] documented as of this encounter Procedures Procedure Name Priority Date/Time Associated Diagnosis Comments CBC WITH AUTO DIFFERENTIAL Routine 10/17/2023 12:00 PM EARLY INTERVENTIONIST Hyperkalemia COMPLETE BLOOD COUNT (CBC) WITH DIFF Routine 10/17/2023 12:00 PM EARLY INTERVENTIONIST Hyperkalemia BASIC METABOLIC PANEL W/ CALCIUM TOTAL Routine 10/17/2023 12:00 PM EARLY INTERVENTIONIST Hyperkalemia documented in this encounter Results * (ABNORMAL) CBC WITH AUTO DIFFERENTIAL (10/17/2023 12:00 PM EARLY INTERVENTIONIST) WBC 7.64 4.00 - 12.00 10(3)/mcL 10/18/2023 1:14 PM EARLY INTERVENTIONIST [facility] RBC 4.79 4.40 - 5.80 10(6)/mcL 10/18/2023 1:14 PM [facility] HEMOGLOBIN (HGB) 14.2 13.0 - 16.5 g/dL 10/18/2023 1:14 PM [facility] HEMATOCRIT (HCT) 43.8 38.0 - 50.0 % 10/18/2023 1:14 PM [facility] MCV 91.4 82.0 - 96.0 fL 10/18/2023 1:14 PM [facility] MCH 29.6 26.0 - 32.0 pg 10/18/2023 1:14 PM [facility] MCHC 32.4 31.0 - 36.0 g/dL 10/18/2023 1:14 PM [facility] PLATELET COUNT 253 140 - 440 10(3)/mcL 10/18/2023 1:14 PM [facility] RDW 13.4 11.8 - 15.5 % 10/18/2023 1:14 PM [facility] MPV 11.3 8.0 - 12.6 fL 10/18/2023 1:14 PM [facility] NEUTROPHILS 76.4(H) 40.0 - 68.0 % 10/18/2023 1:14 PM [facility] LYMPHOCYTES 16.0(L) 19.0 - 49.0 % 10/18/2023 1:14 PM [facility] MONOCYTES 6.2 3.0 - 13.0 % 10/18/2023 1:14 PM [facility] EOSINOPHILS 0.9 0.0 - 8.0 % 10/18/2023 1:14 PM [facility] BASOPHILS 0.5 0.0 - 1.0 % 10/18/2023 1:14 PM [facility] ABSOLUTE NEUTROPHILS 5.84(H) 1.40 - 5.30 10(3)/mcL 10/18/2023 1:14 PM [facility] ABSOLUTE LYMPHOCYTES 1.22 0.90 - 3.30 10(3)/mcL 10/18/2023 1:14 PM EARLY INTERVENTIONIST [facility] ABSOLUTE MONOCYTES 0.47 0.10 - 0.90 10(3)/mcL 10/18/2023 1:14 PM EARLY INTERVENTIONIST [facility] ABSOLUTE EOSINOPHIL 0.07 0.00 - 0.50 10(3)/mcL 10/18/2023 1:14 PM EARLY INTERVENTIONIST [facility] ABSOLUTE BASOPHILS 0.04 0.00 - 0.10 10(3)/[facility] 10/18/2023 1:14 PM EARLY INTERVENTIONIST [facility] NRBC PER 100 WBC 0 10/18/19 24 1:14 PM [facility] Blood No Phlebotomy Charged / Unknown 10/17/2023 12:00 PM EARLY INTERVENTIONIST 10/18/2023 1:07 PM EARLY INTERVENTIONIST Jose Marrero MD HEMATOLOGY ORDERABLES Final Result [facility] [address] [place] [address] * (ABNORMAL) BASIC METABOLIC PANEL W/ CALCIUM TOTAL (10/17/2023 12:00 PM EARLY INTERVENTIONIST) SODIUM 141 136 - 145 mmol/L 10/18/2023 1:30 PM [facility] POTASSIUM 4.6 3.5 - 5.1 mmol/L 10/18/2023 1:30 PM [facility] CHLORIDE 109(H) 98 - 107 mmol/L 10/18/2023 1:30 PM [facility] CO2, VENOUS 23 22 - 30 mmol/L 10/18/2023 1:30 PM [facility] ANION GAP 13.6 <18.0 mmol/L 10/18/2023 1:30 PM [facility] GLUCOSE 203(H) 70 - 99 mg/dL 10/18/2023 1:30 PM [facility] BUN 21 8 - 26 mg/dL 10/18/2023 1:30 PM EARLY INTERVENTIONIST [facility] CREATININE, BLOOD 1.45(H) 0.70 - 1.30 mg/dL 10/18/2023 1:30 PM EARLY INTERVENTIONIST [facility] BUN/CREATININE RATIO 14 12 - 20 ratio 10/18/2023 1:30 PM EARLY INTERVENTIONIST [facility] CALCIUM 9.1 8.7 - 10.5 mg/dL 10/18/2023 1:30 PM EARLY INTERVENTIONIST [facility] GFR, ESTIMATED 53(L) >=60 10/18/2023 1:30 PM EARLY INTERVENTIONIST [facility] Comment: Creatinine Clearance is the preferred criteria for selecting drug dose adjustments in renally impaired patients. The GFR is provided as additional pertinent clinical information. GFR is reported in mL/min/1.73 sq m. Calculation based on the Chronic Kidney Disease Epidemiology Collaboration (CKD- EPI) equation refit without adjustment for race. GFR, EST. 59(L) >=60 024 1:30 PM EARLY INTERVENTIONIST [facility] GFR, EST. NONAFRICAN 49(L) >=60 10/18/2023 1:30 PM EARLY INTERVENTIONIST [facility] Blood No Phlebotomy Charged / Unknown 10/17/2023 12:00 PM EARLY INTERVENTIONIST 10/18/2023 1:07 PM EARLY INTERVENTIONIST us Jose Marrero MD CHEMISTRY ORDERABLES Final R esult [facility] [address] [place] [address] documented in this encounter Visit Diagnoses Diagnosis Hyperkalemia Hyperpotassemia documented in this encounter Care Teams Assistant To The Director Relationship Specialty Start Date End Date Parker Wilder MD [address] [place] [address] PCP - General Pediatrics 03/08/23 Jose Marrero MD [address] [place] [address] Consulting Physician Neurology 03/08/23 documented as of this encounter
--- OUTSIDE RECORDS SUMMARY | 2025-04-16 14:33 | XMS_ITS | Clinical Summary ---
Author Organization [facility] Address [address] [place] [address] Phone Care Team Providers Care Inspector Semiconductor Wafer Name Role Phone Parker Wilder MD Primary Care Provider [phone] Jose Marrero MD Unavailable [phone] Allergies Active Allergy Reactions Criticality Noted Date [...] Type Department Care Team Description 03/09/2025 [facility] [place] [address] [place] [address] Jose Marrero MD Medication Refill 01/14/2025 Refill [facility]rology [facility] [address] [place] [address] Jose Marrero MD Medication Refill from Last [...] drink = 0.6 oz pur e alcohol) [facility] Utilities Answer Date Recorded In the past 12 months has e [email or web address], gas, oil, or water [employer] threatened to shut off services in your [...] often do you attend chur ch or shinto services? Never 10/11/2023 Do you belong to [...] and heating? Not hard at all 10/11/2023 [facility] of Occupat ional Health - [...] Sex Assigned at Male 11/01/2023 2:21 PM BATON TWIRLER Legal Sex Male 11:21 PM CDT Gender Identity Male 11/01/2023 2:21 PM BATON TWIRLER Sexual Orientation Straight 11/01/2023 2: 21 PM BATON TWIRLER Last Filed Vital Signs Vital Sign Reading Time Taken Comments Blood Pressure 160/114 11/14/2024 2:18 PM BATON TWIRLER Pulse 83 11/14/2024 2:18 PM BATON TWIRLER Temperature 36.6 C (97.9 F) 11/14/2024 2:18 PM BATON TWIRLER Respiratory Rate 16 11/14/2024 2:18 PM BATON TWIRLER Oxygen Saturation 100% 11/14/2024 2:18 PM BATON TWIRLER Inhaled Oxygen Concentration - - Weight 98.2 kg (216 lb 8 oz) 11/14/2024 2:18 PM BATON TWIRLER Height 177.8 cm (5' 10) 11/14/2024 2:18 PM BATON TWIRLER Body Mass Index 31.06 11/14/2024 2:18 PM BATON TWIRLER Plan of Treatment Upcoming Encounters Date Type Department Care Team (Late st Contact Info) Description 05/21/2025 2:30 PM CDT Office Visit [facility] Neurology [facility] [address] [place] [address] Jose Marrero MD [address] [place] [address] Health Maintenance Due Date Last Done Comments [...] (COMPREHENSIVE METABOLIC PANEL) STAT 10/11/2023 12:55 PM BATON TWIRLER HEMOGLOBIN A1C W/ ESTIMATED GLUCOSE Routine 10/11/2023 12:55 PM BATON TWIRLER from Last 3 Months or Most Recently Relevant to Health Maintenance Results * (ABNORMAL) Hemoglobin A1C (if indicated) (10/11/2023 12:55 PM BATON TWIRLER) HGB-A1C 8.0(H) 4.0 - 6.0 % 10/12/2023 12:11 AM BATON TWIRLER [facility] Est Average Glucose 182.9 mg/dL 10/12/2023 12:11 AM BATON TWIRLER [facility] Blood Venipuncture / Unknown 10/11/2023 12:55 PM BATON TWIRLER 10/11/2023 1:10 PM BATON TWIRLER Narrative [facility] - 10/12/2023 12:11 AM BATON TWIRLER HEMOGLOBIN A1C: DIABETIC PATIENTS: WELL-CONTROLLED: 6.2 - 7.0 INTERMEDIATE WELL-CONTROLLED: 7.0 - 9.0 POORLY-CONTROLLED: >9.0 us [place] CLEARANCE COORDINATOR[employer] PILOT CHEMISTRY ORDERABLES Fi nal Result [facility] [address] [place] [address] * (ABNORMAL) CMP (Comprehensive Metabolic Panel) (10/11/2023 12:55 PM BATON TWIRLER) SODIUM 136 136 - 145 mmol/L 10/11/2023 1:33 PM BATON TWIRLER [facility] POTASSIUM 5.5(H) 3.5 - 5.1 mmol/L 10/11/2023 1:33 PM BATON TWIRLER [facility] CHLORIDE 108(H) 98 - 107 mmol/L 10/11/2023 1:33 PM [facility] CO2, VENOUS 20(L) 22 - 30 mmol/L 10/11/2023 1:33 PM [facility] ANION GAP 13.5 <18.0 mmol/L 10/11/2023 1:33 PM [facility] GLUCOSE 297(H) 70 - 99 mg/dL 10/11/2023 1:33 PM [facility] BUN 27(H) 8 - 26 mg/dL 10/11/2023 1:33 PM [facility] CREATININE, BLOOD 1.70(H) 0.70 - 1.30 mg/dL 10/11/2023 1:33 PM [facility] BUN/CREATININE RATIO 16 12 - 20 ratio 10/11/2023 1:33 PM [facility] TOTAL PROTEIN 7.8 6.3 - 8.2 g/dL 10/11/2023 1:33 PM [facility] ALBUMIN 4.3 3.5 - 5.0 g/dL 10/11/2023 1:33 PM [facility] A/G RATIO 1.2 1.0 - 2.2 10/11/2023 1:33 PM [facility] CALCIUM 9.6 8.7 - 10.5 mg/dL 10/11/2023 1:33 PM [facility] T BILI 1.2 0.2 - 1.2 mg/dL 10/11/2023 1:33 PM [facility] SGOT (AST) 17 5 - 34 U/L 10/11/2023 1:33 PM [facility] SGPT (ALT) 6 0 - 55 U/L 10/11/2023 1:33 PM [facility] ALKALINE PHOSPHATASE 88 40 - 150 U/L 10/11/2023 1:33 PM [facility] GFR, ESTIMATED 44(L) >=60 10/11/2023 1:33 PM [facility] Comment: Creatinine Clearance is the preferred criteria for selecting drug dose adjustments in renally impaired patients. The GFR is provided as additional pertinent clinical information. GFR is reported in mL/min/1.73 sq m. Calculation based on the Chronic Kidney Disease Epidemiology Collaboration (CKD- EPI) equation refit without adjustment for race. GFR, EST. 49(L) >=60 024 1:33 PM BATON TWIRLER [facility] GFR, EST. NONAFRICAN 41(L) >=60 10/11/2023 1:33 PM BATON TWIRLER [facility] Blood Venipuncture / Unknown 10/11/2023 12:55 PM BATON TWIRLER 10/11/2023 1:10 PM BATON TWIRLER us Tony Chong MD CHEMISTRY ORDERABLES F inal Result [facility] [address] [place] [address] from Last 3 Months or Most Recently [...] measures to stabilize the patient. Care Teams Inspector Semiconductor Wafer Relationship Specialty Start Date End Date Parker Wilder MD [address] [place], [place] [id number] PCP - General Pediatrics 03/08/23 oJse Marrero MD [address] [place] [address] Consulting Physician Neurology 03/08/23
[2025-04-16 15:09] LABS: Anion Gap 9 mmol/L (4-12); Blood Urea Nitrogen 18 mg/dL (9-20); Calcium 9.4 mg/dL (8.4-10.2); Carbon Dioxide 27 mmol/L (22-30); Chloride 106 mmol/L (98-107); Estimated Glomerular Filt Rate 55; Glucose 114 mg/dL (65-110); Osmolality Calculated 296 mOsm/kg (285-295); Potassium 3.8 mmol/L (3.4-5.0); Sodium 142 mmol/L (137-145)
== END 2025-04-16 14:30 | disposition home or self-care (01) ==
PROVIDERS: PCP Family Medicine; Visit Provider Family Medicine
DX: I95.1 Orthostatic hypotension (principal)
CPT/HCPCS: 36415; 80048

== ENCOUNTER 2025-05-27 15:23 | Outpatient (CLI) | payer MEDICARE, SELFPAY ==
[2025-05-27 15:40] LABS: Hematocrit 38.3 % (37.0-46.0); Hemoglobin 12.1 g/dL (12.4-15.3); Immature Granulocyte Percent A 0.3 % (0.0-0.0); Lymphocytes Absolute Auto 1.89 K/mm3 (1.10-4.50); Mean Corpuscular HGB Conc 31.6 g/dL (32-36); Mean Corpuscular Hemoglobin 29.9 pg (27.0-31.0); Mean Corpuscular Volume 94.6 fL (78.0-102.0); Nucleated Red Blood Cells Absolute Auto 0.00 K/mm3 (0.00-0.00); Nucleated Red Blood Cells Perc 0.0 % (0-0.0); Platelet Count Result 151 K/mm3 (150-420); Red Blood Count 4.05 M/mm3 (4.70-6.10); White Blood Count 6.6 K/mm3 (4.8-10.8)
[2025-05-27 15:56] LABS: Hemoglobin A1C 5.9 % (<5.7)
[2025-05-27 16:00] LABS: Alanine Aminotransferase 13 U/L (6-50); Albumin Level 4.0 g/dL (3.5-5.1); Alkaline Phosphatase 66 U/L (38-126); Anion Gap 8 mmol/L (4-12); Aspartate Amino Transferase 25 U/L (17-59); Bilirubin,Total 0.8 mg/dL (0.2-1.3); Blood Urea Nitrogen 34 mg/dL (9-20); Calcium 9.4 mg/dL (8.4-10.2); Carbon Dioxide 26 mmol/L (22-30); Chloride 111 mmol/L (98-107); Estimated Glomerular Filt Rate 50; Glucose 125 mg/dL (65-110); Osmolality Calculated 308 mOsm/kg (285-295); Potassium 5.4 mmol/L (3.4-5.0); Sodium 145 mmol/L (137-145); Total Protein 6.6 g/dL (6.3-8.2)
--- OUTSIDE RECORDS SUMMARY | 2025-05-27 16:05 | XMS_ITS | Encounter Summary ---
Author Organization [facility] Address [address] [place] [address] Phone Care Team Providers Care Library Media Assistant Name Role Phone Parker Wilder MD Primary Care Provider [phone] Jose Marrero MD Unavailable [phone] Encounter Details Date Type Department Care Team (Late st Contact Info) Description 10/18/2023 Lab Requisition [facility] [address] [place] [address] Jose Marrero MD [address] [place] [address] Hyperkalemia Social History Tobacco Use Types Packs/Day Years Used Date Smoking Tobacco: Never Smokeless Tobacco: Never Alcohol Use Standard Drinks/Week Comments Never 0 (1 standard drink = 0.6 oz pur e alcohol) [facility] Utilities Answer Date Recorded In the past 12 months has [employer], gas, oil, or water company threatened [...] often do you attend chur ch or rastafarian services? Never 10/11/2023 Do you belong to any clubs o r organizations such as adventism groups, unions, fraternal or athletic groups, or [...] and heating? Not hard at all 10/11/2023 [facility] of Occupat ional Health - Occupational Stress [...] Sex Assigned at Male 11/01/2023 2:21 PM OUTSEWER Legal Sex Male 11:21 PM CDT Gender Identity Male 11/01/2023 2:21 PM OUTSEWER Sexual Orientation Straight 11/01/2023 2: 21 PM OUTSEWER documented as of this encounter Plan of Treatment Upcoming Encounters Date Type Department Care Team (Late st Contact Info) Description 11/23/2025 2:30 PM CDT [facility] [address] [place] [address] Jose Marrero MD [address] [place] [address] documented as of this encounter Procedures Procedure Name Priority Date/Time Associated Diagnosis Comments CBC WITH AUTO DIFFERENTIAL Routine 10/17/2023 12:00 PM OUTSEWER Hyperkalemia COMPLETE BLOOD COUNT (CBC) WITH DIFF Routine 10/17/2023 12:00 PM OUTSEWER Hyperkalemia BASIC METABOLIC PANEL W/ CALCIUM TOTAL Routine 10/17/2023 12:00 PM OUTSEWER Hyperkalemia documented in this encounter Results * (ABNORMAL) CBC WITH AUTO DIFFERENTIAL (10/17/2023 12:00 PM OUTSEWER) WBC 7.64 4.00 - 12.00 10(3)/mcL 10/18/2023 1:14 PM OUTSEWER [facility] RBC 4.79 4.40 - 5.80 10(6)/mcL 10/18/2023 1:14 PM [facility] HEMOGLOBIN (HGB) 14.2 13.0 - 16.5 g/dL 10/18/2023 1:14 PM [facility] HEMATOCRIT (HCT) 43.8 38.0 - 50.0 % 10/18/2023 1:14 PM [facility] MCV 91.4 82.0 - 96.0 fL 10/18/2023 1:14 PM [facility] MCH 29.6 26.0 - 32.0 pg 10/18/2023 1:14 PM [facility] MCHC 32.4 31.0 - 36.0 g/dL 10/18/2023 1:14 PM [facility] PLATELET COUNT 253 140 - 440 10(3)/mcL 10/18/2023 1:14 PM [facility] RDW 13.4 11.8 - 15.5 % 10/18/2023 1:14 PM [facility] MPV 11.3 8.0 - 12.6 fL 10/18/2023 1:14 PM [facility] NEUTROPHILS 76.4(H) 40.0 - 68.0 % 10/18/2023 1:14 PM [facility] LYMPHOCYTES 16.0(L) 19.0 - 49.0 % 10/18/2023 1:14 PM [facility] MONOCYTES 6.2 3.0 - 13.0 % 10/18/2023 1:14 PM [facility] EOSINOPHILS 0.9 0.0 - 8.0 % 10/18/2023 1:14 PM [facility] BASOPHILS 0.5 0.0 - 1.0 % 10/18/2023 1:14 PM [facility] ABSOLUTE NEUTROPHILS 5.84(H) 1.40 - 5.30 10(3)/mcL 10/18/2023 1:14 PM [facility] ABSOLUTE LYMPHOCYTES 1.22 0.90 - 3.30 10(3)/mcL 10/18/2023 1:14 PM OUTSEWER [facility] ABSOLUTE MONOCYTES 0.47 0.10 - 0.90 10(3)/mcL 10/18/2023 1:14 PM OUTSEWER [facility] ABSOLUTE EOSINOPHIL 0.07 0.00 - 0.50 10(3)/mcL 10/18/2023 1:14 PM OUTSEWER [facility] ABSOLUTE BASOPHILS 0.04 0.00 - 0.10 10(3)/[facility] 10/18/2023 1:14 PM OUTSEWER [facility] NRBC PER 100 WBC 0 10/18/19 24 1:14 PM [facility] Blood No Phlebotomy Charged / Unknown 10/17/2023 12:00 PM OUTSEWER 10/18/2023 1:07 PM OUTSEWER Jose Marrero MD HEMATOLOGY ORDERABLES Final Result [facility] [address] [place] [address] * (ABNORMAL) BASIC METABOLIC PANEL W/ CALCIUM TOTAL (10/17/2023 12:00 PM OUTSEWER) SODIUM 141 136 - 145 mmol/L 10/18/2023 1:30 PM [facility] POTASSIUM 4.6 3.5 - 5.1 mmol/L 10/18/2023 1:30 PM [facility] CHLORIDE 109(H) 98 - 107 mmol/L 10/18/2023 1:30 PM [facility] CO2, VENOUS 23 22 - 30 mmol/L 10/18/2023 1:30 PM [facility] ANION GAP 13.6 <18.0 mmol/L 10/18/2023 1:30 PM [facility] GLUCOSE 203(H) 70 - 99 mg/dL 10/18/2023 1:30 PM [facility] BUN 21 8 - 26 mg/dL 10/18/2023 1:30 PM OUTSEWER [facility] CREATININE, BLOOD 1.45(H) 0.70 - 1.30 mg/dL 10/18/2023 1:30 PM OUTSEWER [facility] BUN/CREATININE RATIO 14 12 - 20 ratio 10/18/2023 1:30 PM OUTSEWER [facility] CALCIUM 9.1 8.7 - 10.5 mg/dL 10/18/2023 1:30 PM OUTSEWER [facility] GFR, ESTIMATED 53(L) >=60 10/18/2023 1:30 PM OUTSEWER [facility] Comment: Creatinine Clearance is the preferred criteria for selecting drug dose adjustments in renally impaired patients. The GFR is provided as additional pertinent clinical information. GFR is reported in mL/min/1.73 sq m. Calculation based on the Chronic Kidney Disease Epidemiology Collaboration (CKD- EPI) equation refit without adjustment for race. GFR, EST. 59(L) >=60 024 1:30 PM OUTSEWER [facility] GFR, EST. NONAFRICAN 49(L) >=60 10/18/2023 1:30 PM OUTSEWER [facility] Blood No Phlebotomy Charged / Unknown 10/17/2023 12:00 PM OUTSEWER 10/18/2023 1:07 PM OUTSEWER us Jose Marrero MD CHEMISTRY ORDERABLES Final R esult [facility] [address] [place] [address] documented in this encounter Visit Diagnoses Diagnosis Hyperkalemia Hyperpotassemia documented in this encounter Care Teams Library Media Assistant Relationship Specialty Start Date End Date Parker Wilder MD [address] [place] [address] PCP - General Pediatrics 03/08/23 Jose Marrero MD [address] [place] [address] Consulting Physician Neurology 03/08/23 documented as of this encounter
--- OUTSIDE RECORDS SUMMARY | 2025-05-27 16:05 | XMS_ITS | Clinical Summary ---
Author Organization [facility] Address [address] [place] [address] Phone Care Team Providers Care Blade Filer Name Role Phone Parker Wilder MD Primary Care Provider [phone] Jose Marrero MD Unavailable [phone] Allergies Active Allergy Reactions Criticality Noted Date [...] Encounters Date Type Department Care Team Description 05/21/2025 2:30 PM CDT Office Visit [facility] Neu[facility] [address] [place] [address] Jose Marrero MD Parkinsonism, unspecified Parkinsonism type (HCC) (Primary Dx); Anxiety; Neurogenic orthostatic hypotension (HCC) Discharge Disposition: Discharged to home or Selfcare 05/21/2025 Travel 03/09/2025 Refill [facility] [address] [place] [address] Jose Marrero MD Medication Refill [...] drink = 0.6 oz pur e alcohol) [facility] Utilities Answer Date Recorded In the past 12 months has e electric, gas, oil, or water company threatened [...] often do you attend chur ch or baptist services? Never 10/11/2023 Do you belong to any clubs o r organizations such as taoism groups, unions, fraternal or athletic groups, or [...] and heating? Not hard at all 10/11/2023 [facility] of Occupat ional Health - Occupational Stress [...] Sex Assigned at Male 11/01/2023 2:21 PM ORIGINATION SPECIALIST Legal Sex Male 11:21 PM CDT Gender Identity Male 11/01/2023 2:21 PM ORIGINATION SPECIALIST Sexual Orientation Straight 11/01/2023 2: 21 PM ORIGINATION SPECIALIST Last Filed Vital Signs Vital Sign Reading Time Taken Comments Blood Pressure 142/92 05/21/2025 3:03 PM CDT sta nding Pulse 90 05/21/2025 2:29 PM CDT Temperature 36.6 C (97.9 F) 05/21/2025 2:29 PM CDT Respiratory Rate 16 05/21/2025 2:29 PM CDT Oxygen Saturation 94% 05/21/2025 2:29 PM CDT Inhaled Oxygen Concentration - - Weight 83.3 kg (183 lb 9.6 oz) 05/21/2025 2:29 P M CDT Height 177.8 cm (5' 10) 05/21/2025 2:29 PM CDT Body Mass Index 26.34 05/21/2025 2:29 PM CDT Plan of Treatment Upcoming Encounters Date Type Department Care Team (Late st Contact Info) Description 11/23/2025 2:30 PM CDT Office Visit [facility] [address] [place] [address] Jose Marrero MD [address] [place] [address] Health Maintenance Due Date Last Done Comments [...] 10/11/2023, 03/10 Diabetes: Nephropathy Screening 10/11/2024 10/11/2023 Influenza Immunization (#1) 05/11/202506/10, 06/20/2023, 05/16/2022, Additional history exists SARS-COV-2 Immunization (7 - Mixed Product risk [...] (COMPREHENSIVE METABOLIC PANEL) STAT 10/11/2023 12:55 PM ORIGINATION SPECIALIST HEMOGLOBIN A1C W/ ESTIMATED GLUCOSE Routine 10/11/2023 12:55 PM ORIGINATION SPECIALIST from Last 3 Months or Most Recently Relevant to Health Maintenance Results * (ABNORMAL) Hemoglobin A1C (if indicated) (10/11/2023 12:55 PM ORIGINATION SPECIALIST) HGB-A1C 8.0(H) 4.0 - 6.0 % 10/12/2023 12:11 AM ORIGINATION SPECIALIST [facility] Est Average Glucose 182.9 mg/dL 10/12/2023 12:11 AM ORIGINATION SPECIALIST [facility] Blood Venipuncture / Unknown 10/11/2023 12:55 PM ORIGINATION SPECIALIST 10/11/2023 1:10 PM ORIGINATION SPECIALIST Narrative [facility] - 10/12/2023 12:11 AM ORIGINATION SPECIALIST HEMOGLOBIN A1C: DIABETIC PATIENTS: WELL-CONTROLLED: 6.2 - 7.0 INTERMEDIATE WELL-CONTROLLED: 7.0 - 9.0 POORLY-CONTROLLED: >9.0 us [place] PATTERN GATER, ELECTRONIC MASKING SYSTEM OPERATOR CHEMISTRY ORDERABLES Fi nal Result [facility] [address] [place] [address] * (ABNORMAL) CMP (Comprehensive Metabolic Panel) (10/11/2023 12:55 PM ORIGINATION SPECIALIST) SODIUM 136 136 - 145 mmol/L 10/11/2023 1:33 PM [facility] POTASSIUM 5.5(H) 3.5 - 5.1 mmol/L 10/11/2023 1:33 PM [facility] CHLORIDE 108(H) 98 - 107 mmol/L 10/11/2023 1:33 PM [facility] CO2, VENOUS 20(L) 22 - 30 mmol/L 10/11/2023 1:33 PM [facility] ANION GAP 13.5 <18.0 mmol/L 10/11/2023 1:33 PM [facility] GLUCOSE 297(H) 70 - 99 mg/dL 10/11/2023 1:33 PM [facility] BUN 27(H) 8 - 26 mg/dL 10/11/2023 1:33 PM [facility] CREATININE, BLOOD 1.70(H) 0.70 - 1.30 mg/dL 10/11/2023 1:33 PM [facility] BUN/CREATININE RATIO 16 12 - 20 ratio 10/11/2023 1:33 PM [facility] TOTAL PROTEIN 7.8 6.3 - 8.2 g/dL 10/11/2023 1:33 PM [facility] ALBUMIN 4.3 3.5 - 5.0 g/dL 10/11/2023 1:33 PM [facility] A/G RATIO 1.2 1.0 - 2.2 10/11/2023 1:33 PM [facility] CALCIUM 9.6 8.7 - 10.5 mg/dL 10/11/2023 1:33 PM [facility] T BILI 1.2 0.2 - 1.2 mg/dL 10/11/2023 1:33 PM [facility] SGOT (AST) 17 5 - 34 U/L 10/11/2023 1:33 PM [facility] SGPT (ALT) 6 0 - 55 U/L 10/11/2023 1:33 PM [facility] ALKALINE PHOSPHATASE 88 40 - 150 U/L 10/11/2023 1:33 PM ORIGINATION SPECIALIST [facility] GFR, ESTIMATED 44(L) >=60 10/11/2023 1:33 PM ORIGINATION SPECIALIST [facility] Comment: Creatinine Clearance is the preferred criteria for selecting drug dose adjustments in renally impaired patients. The GFR is provided as additional pertinent clinical information. GFR is reported in mL/min/1.73 sq m. Calculation based on the Chronic Kidney Disease Epidemiology Collaboration (CKD- EPI) equation refit without adjustment for race. GFR, EST. 49(L) >=60 024 1:33 PM ORIGINATION SPECIALIST [facility] GFR, EST. NONAFRICAN 41(L) >=60 10/11/2023 1:33 PM ORIGINATION SPECIALIST [facility] Blood Venipuncture / Unknown 10/11/2023 12:55 PM ORIGINATION SPECIALIST 10/11/2023 1:10 PM ORIGINATION SPECIALIST Tony Chong MD CHEMISTRY ORDERABLES F inal Result [facility] [address] [place] [address] from Last 3 Months or Most Recently [...] measures to stabilize the patient. Care Teams Blade Filer Relationship Specialty Start Date End Date Parker Wilder MD [address] [place] [address] PCP - General Pediatrics 03/08/23 Jose Marrero MD [address] [place] [phone] Consulting Physician Neurology 03/08/23
--- OUTSIDE RECORDS SUMMARY | 2025-05-27 16:05 | XMS_ITS | Clinical Summary ---
Author Organization [facility] Address [facility] [place] [address] Care Team Providers Care Refinery Operator Crude Unit Name Role Phone Parker Wilder MD Primary Care Provider [phone] Allergies Active Allergy Reactions Criticality Noted Date [...] 05/20/2019 Mixed hyperlipidemia Benign essential HTN Diabetes ([facility]) Dizziness Back pain Syncope Major depressive disorder [...] COVID-19 Vaccine (1 - 2023-2 5 season) 2025 RSV Immunization or 60+ Years (1 - [...] Health Maintenance Insurance MEDICARE MEDICARE Care Teams Refinery Operator Crude Unit Relationship Specialty Start Date End Date Parker Wilder MD [address] [place] [id number] PCP - General FAMILY PRACTICE 12/27/18
--- OUTSIDE RECORDS SUMMARY | 2025-05-27 16:05 | XMS_ITS | Patient Health Record ---
Author Organization [facility] Address [address] [address] Care Team Providers Care Tax Accountant Name Role Phone Scott Fitzpatrick Unavailable [phone] Reason For Referral No Information Plan Of Treatment No Information
--- OUTSIDE RECORDS SUMMARY | 2025-05-27 16:05 | XMS_ITS | Encounter Summary ---
Author Organization [facility] Address [address] [place] [address] Phone Care Team Providers Care Merchant Miller Name Role Phone Parker Wilder MD Primary Care Provider [phone] Jose Marrero MD Unavailable [phone] Reason for Visit * Reason Comments Medication Refill Encounter Details Date Type Department Care Team (Late st Contact Info) Description 02/28/2024 Refill [facility] [address] [place] [address] Jose Marrero MD [address] [place] [address] Medication Refill Social History Tobacco Use Types Packs/Day Years Used Date Smoking Tobacco: Never Smokeless Tobacco: Never Alcohol Use Standard Drinks/Week Comments Never 0 (1 standard drink = 0.6 oz pur e alcohol) [facility] Utilities Answer Date Recorded In the past 12 months has [employer], gas, oil, or water company threatened to [...] often do you attend chur ch or anabaptist services? Never 10/11/2023 Do you belong to any clubs o r organizations such as cheondoism groups, unions, fraternal or athletic groups, or [...] heating? Not hard at all 10/11/2023 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 Legal Sex Male 11:21 PM CDT Gender Identity Male 11/01/2023 2:21 PM INSIDE SALES ACCOUNT MANAGER Sexual Orientation Straight 11/01/2023 2: 21 PM INSIDE SALES ACCOUNT MANAGER documented as of this encounter Miscellaneous Notes [...] Dept 11/02/23 Office Visit Jose Marrero [place] [facility] 06/12/23 Office Visit Jose Marrero [place] [facility] 03/08/23 Office Visit Jose Marrero MD [facility] Showing recent visits within past 365 days and meeting all other requirements Future Appointments Date Type Provider Dept 05/05/24 Appointment Jose Marrero MD [facility] Showing future appointments within next 90 days and meeting all other requirements documented in this encounter Plan of Treatment Upcoming Encounters Date Type Department Care Team (Late st Contact Info) Description 11/23/2025 2:30 PM CDT Office Visit [facility] [address] [place] [address] Jose Marrero MD [address] [place] [address] documented as of this encounter Visit Diagnoses Not on filedocumented in this encounter Care Teams Merchant Miller Relationship Specialty Start Date End Date Parker Wilder MD [address] [place] [address] PCP - General Pediatrics 03/08/23 Jose Marrero MD [address] [place] [address] Consulting Physician Neurology 03/08/23 documented as of this encounter
--- OUTSIDE RECORDS SUMMARY | 2025-05-27 16:05 | XMS_ITS | Encounter Summary ---
Author Organization [facility] Address [address] [place] [address] Phone Care Team Providers Care Electrical Engineering Director Name Role Phone Parker Wilder MD Primary Care Provider [phone] Jose Marrero MD Unavailable [phone] Reason for Visit * Reason Comments Medication Refill Encounter Details Date Type Department Care Team (Late st Contact Info) Description 01/14/2025 Refill [facility] - Neurology [facility] [address] [place] [address] Jose Marrero MD [address] [place] [address] Medication Refill Social History Tobacco Use Types Packs/Day Years Used Date Smoking Tobacco: Never Smokeless Tobacco: Never Alcohol Use Standard Drinks/Week Comments Never 0 (1 standard drink = 0.6 oz pur e alcohol) [facility] Utilities Answer Date Recorded In the past 12 months has [employer], gas, oil, or water company threatened to [...] often do you attend chur ch or hinduism services? Never 10/11/2023 Do you belong to any clubs o r organizations such as restorationist groups, unions, fraternal or athletic groups, or [...] and heating? Not hard at all 10/11/2023 [facility] - Occupational [...] Sex Assigned at Male 11/01/2023 2:21 PM [employer] Legal Sex Male 11:21 PM CDT Gender Identity Male 11/01/2023 2:21 PM [employer] Sexual Orientation Straight 11/01/2023 2: 21 PM [employer] documented as of this encounter Plan of Treatment Upcoming Encounters Date Type Department Care Team (Late st Contact Info) Description 11/23/2025 2:30 PM CDT Office Visit [facility] - Neurology [facility] [address] [place] [id number] Jose Marrero MD [address] [place] [id number] documented as of this encounter Visit Diagnoses Not on filedocumented in this encounter Care Teams Electrical Engineering Director Relationship Specialty Start Date End Date Parker Wilder MD [address] [place] [address] PCP - General Pediatrics 03/08/23 Jose Marrero MD [address] [place] [id number] Consulting Physician Neurology 03/08/23 documented as of this encounter
[2025-05-27 16:31] LABS: Thyroid Stimulating Hormone 0.809 uIU/mL (0.465-4.680)
== END 2025-05-27 15:24 | disposition home or self-care (01) ==
LOC: CHSLAB 15:24
PROVIDERS: PCP Family Medicine; Visit Provider Family Medicine
DX: E11.9 Type 2 diabetes mellitus without complications (principal)
CPT/HCPCS: 36415; 80053; 83036; 84443; 85025